=== PATIENT | female | born 1965 | race Caucasian/White ===

== ENCOUNTER → 2016-07-11 | Outpatient (CLI) | payer BC ==
[~2016-07-11] MED LIST: ARMO90TA OR; BENT10CA PO; CALC500T36 PO; EMLA TD; FASTIN PO; FIORICET OR; FISHCAP OR; GLYC1TAB17 PO; GREEN TEA OR; GREEPOW2 XX; HYDR200T3 PO; IBUP-1114 PO; IMIT4KIT SC; IMIT50TA PO; IRON325T PO; KLOR10TA OR; LIDO5DIS EXT; MAGN250T5 PO; MAGN500T5 PO; MULTIVIT OR; NEUR300C PO; OMEP40CA2 PO; PROB1TAB PO; RANI15TA PO; RESTASIS OU; SIME80TA PO; SKEL800T5 OR; SOMA350T OR; THYROID MED; TYLE325T5 PO; VALI5TAB PO; VERA120T OR; VICO5TAB OR; VIT D 2000 PO; VIT D OR; VITA200016 PO; VITAMIN D50000 UNT; VITATAB11 PO; VOLT1GEL EX; ZANA2CAP OR; [UNRECOGNIZED DRUG - OTHER]; [UNRECOGNIZED DRUG - OTHER]; [UNRECOGNIZED DRUG - REMARK]; eye drops OU; plaquinel PO; viscous lidocaine SSP
--- NOTE | 2016-07-13 23:20 | ECWPNPC ---
PATIENT NAME: FRANCK CROW : 1965 GENDER: FEMALE VISIT DATE: 07/11/2016 DISCHARGE DATE: 07/11/16 1002 VISIT LOCKED DATE TIME: PHYSICIAN: ANDREA CHACON RESOURCE: ANDREA CHACON REASON FOR APPOINTMENT 1. FOLLOWUP HISTORY OF PRESENT ILLNESS HISTORY OF PRESENT ILLNESS: PAIN THE PATIENT DESCRIBES THE PAIN... FALL RISK SCREENING: SCREENING :NO FALLS IN THE PAST YEAR TODAY'S VISIT: NOTES: OTEZLA WAS STOPPED DUE TO INSURANCE FOR ONE MONTH. THEY WANTED HER TO BE TRIALED ON [facility]UMIR[facility] BUT SHE AND HER DOCTOR DECLINED THIS DUE TO HER HX OF SKIN CANCER AND VERY HIGH FAMILY RATE OF CANCER. WHILE OFF ON OTEZLA HAS DEVELOPED AGAIN INCREASED DRY EYES, ORAL LESIONS AND THE ESOPHAGEAL IRRITATION.RATES PAIN TODAY 4/10. DESCRIBES PAIN CONSTANT, ACHING, TENDER AND SORE, AND INTERMITTANTLY SHARP IN SOME AREAS.. CURRENT MEDICATIONS TAKING BENTYL 10 MG CAPSULE 1 CAPSULE ORALLY ONCE DAILY NEEDED, NOTES: NONE LATELY TAKING THYROID 60 MG TABLET 1 TABLET ORALLY ONCE A DAY TAKING EYE DROPS SOLUTION 1 DROP EACH EYE OPHTHALMIC DIRECTED TAKING OTEZLA 30 MG TABLET 1 TABLET ORALLY TWICE A DAY TAKING CARAFATE 1 GM TABLET 1 TABLET ON AN EMPTY STOMACH ORALLY 1/2 HR BEFORE MEALS AND AT BED NEEDED TAKING CARISOPRODOL 350 MG TABLET 1 TABLET NEEDED ORALLY TAKE ONE AT BEDTIME MDD=1 TAKING EMLA 2.5 CREAM PERCENT EXTERNALLY THREE TIMES A DAY NEEDED TAKING PROBIOTIC CAPSULE ORALLY BID TAKING SUMATRIPTAN SUCCINATE REFILL 4 MG/0.5ML SOLUTION CARTRIDGE DIRECTED SUBCUTANEOUS DIRECTED TAKING NORCO 7.5-325 MG TABLET 1 TABLET NEEDED ORALLY EVERY 6 HRS TAKING VALIUM 2 MG TABLET 1 TABLET NEEDED ORALLY BEFORE BEDTIME MDD=1 TAKING RIZATRIPTAN BENZOATE 10 MG TABLET 1 TABLET NEEDED ONE TIME ORALLY BID MDD=2 FOR MIGRAINE TAKING TIZANIDINE HCL 4 MG CAPSULE 2 CAPSULE NEEDED ORALLY DAY TAKING MAGNESIUM 500 MG TABLET 1-2 TABS ORALLY ONCE A DAY TAKING VITAMIN D 5000 UNIT CAPSULE 1 TABLET ORALLY DAILY NOT-TAKING ASPIR-81 81 MG TABLET DELAYED RELEASE 1 TABLET ORALLY ONCE A DAY, NOTES: 03/18/16 0800 NOT-TAKING VITAMIN B COMPLEX 1000 MG TABLET ORALLY DAILY NOT-TAKING SOMA 350 MG TABLET ORALLY DAILY NOT-TAKING CALCIUM 500 MG TABLET ORALLY DAILY NOT-TAKING ZANAFLEX 4 MG TABLET ORALLY 4MG TWICE DAILY, NOTES: 04/19/16 0900 NOT-TAKING NORCO 5-325 MG TABLET 1 TABLET ORALLY EVERY 6 -8 HRS PRN PAIN NOT-TAKING FIORICET TABLET 2 TABLET NEEDED ORALLY EVERY 4 HRS, NOTES: MAX DAILY DOSE 6 TABS NOT-TAKING SUMATRIPTAN SUCCINATE SOLUTION MAY REPEAT IN 1 HOUR IF NEEDED SUBCUTANEOUS NEEDED NOT-TAKING QUININE SULFATE 324 MG CAPSULE 2 CAPSULES WITH FOOD ORALLY AT BEDTIME MEDICATION LIST REVIEWED AND RECONCILED WITH THE PATIENT PAST MEDICAL HISTORY HYPOTHYROIDISM SJOGRENS FIBROMYALGIA MIGARINES ENDOMETREOISIS POLYCYSTIC OVARY DISEASE IBS DDD OSTEOPOROSIS ALLERGIES FLECTOR: RASH GABAPENTIN: MIGRANE TRAMADOL: MIGRANE TOPIRAMATE: PANIC ATTACKS DULOXETINE HCL: MIGRANE SULFA (FOR ALLERGY USE ONLY): NAUSEA/ VOMITING PREGABALIN: WEIGHT GAIN TAPE: RASH SOCIAL HISTORY GENERAL: TOBACCO USE ARE YOU A:NONSMOKER LEARNING BARRIERS / SPECIAL NEEDS ORIENTED TO PLAN OF CARE: PATIENT, PAIN MANAGEMENT PATIENT, ORIENTED TO PLAN OF CARE: PATIENT, PAIN MANAGEMENT PATIENT. NEW PATIENT PAIN DIARY TODAY'S VISITNOTES FROM 0-10, WHAT LEVEL IS YOUR PAIN TODAY?0 PAIN CLINIC PFS, CLERGY, PUBLIC HEALTH REFERRALS PFS REFERRAL NEEDED?NO CLERGY REFERRAL NEEDED?NO PUBLIC HEALTH REFERRAL NEEDED?NO WAS THE PROVIDER NOTIFIED OF ANY PERTINENT INFO?NO PFS REFERRAL NEEDED?NO CLERGY REFERRAL NEEDED?NO PUBLIC HEALTH REFERRAL NEEDED?NO WAS THE PROVIDER NOTIFIED OF ANY PERTINENT INFO?NO REVIEW OF SYSTEMS CONSTITUTIONAL: ANY CHANGE IN YOUR MEDICAL CONDITION? NO . CHILLS NO . FEVER NO . INFECTION: DO YOU HAVE NEW INFECTIONS? NO . DO YOU HAVE HISTORY OF MRSA? NO . MUSCULOSKELETAL: ANY NEW PATTERNS OF PAIN OR NUMBNESS? NO . GASTROENTEROLOGY: ANY NEW CHANGE IN BOWEL CONTROL? NO . GENITOURINARY: ANY NEW CHANGE IN BLADDER CONTROL? NO . IS THERE A CHANCE YOU COULD BE ? NO . HEMATOLOGY/LYMPH: DO YOU TAKE ANY BLOOD THINNERS? (FOR EXAMPLE- COUMADIN, PLAVIX, AGGRENOX, PLATEL, PRADAXA, OR XARELTO) NO . WHEN WAS YOUR LAST DOSE? DATE: TIME: . NEUROLOGY: HAVE YOU FALLEN IN THE PAST 6 MONTHS? YES-NO INJURY EXCEPT FOR BRUISING. NO EVAL DONE. . ANY NEW EXTREMITY NUMBNESS OR WEAKNESS? NO . CARDIOLOGY: DO YOU HAVE A PACEMAKER OR DEFIBRILLATOR? NO . RESPIRATORY: HAVE YOU BEEN SICK IN THE PAST WEEK? YES. URI . FEVER NO . FLU LIKE SYMPTOMS? NO . COUGH YES, NON-PRODUCTIVE . INTEGUMENTARY: DO YOU HAVE ANY RASHES OR OPEN SORES? NO . ALLERGIC/IMMUNO: ARE YOU ALLERGIC TO SHELLFISH OR IV DYE? NO . ANY NEW ALLERGIES? NO . PSYCHIATRIC: DO YOU HAVE THOUGHTS OF HURTING YOURSELF OR SOMEONE ELSE? NO . ARE YOU ABUSED, NEGLECTED, OR IN AN UNSAFE ENVIRONMENT? NO . ENDOCRINOLOGY: ARE YOU DIABETIC? NO . OTHER: DO YOU NEED ANY PRESCRIPTIONS? YES SOMA/VALIUM . IF YES, PLEASE LIST: ____ . ANY NEW PROBLEMS WITH YOUR MEDICATIONS? NO . WHEN DID YOU LAST EAT? ____ . WHEN DID YOU LAST DRINK? ____ . WHAT DID YOU LAST DRINK? ____ . NAME OF PERSON DRIVING YOU HOME? ____ . DO YOU HAVE ANY OTHER QUESTIONS OR CONCERNS NO . HEENT: PATIENT COMPLAINING OF VERY DRY EYS WHILE OFF OTEZLA, INCREASE IN ESOPHAGEAL IRRITATION . PSYCHOLOGY: SLEEP DISTURBANCES INSOMNIA SHORT SLEEP BUT THEN IS WIDE AWAKE . SKIN: DO YOU HAVE ANY RASHES OR OPEN SORES? ORAL LESIONS ARE FLAIRED . UROLOGY: GENERAL HAVING IVP FOR RE-EVAL OF RENAL DRAINAGE. HAS HX OF DUAL URETERS ON LEFT AND REQUIRED SURGERY A TEEN. . REVIEWED BY: PROVIDER: . VITAL SIGNS WT 121 LBS, HT 61 IN, BMI 22.86 INDEX, BP 140/78 MM HG, HR 79 /MIN, RR 16 /MIN, TEMP 98.1 F, OXYGEN SAT % 99, NA INITIALS MP, REVIEWED BY: MLF. EXAMINATION GENERAL EXAMINATION: PSYCHALERT , ORIENTED X 3 , APPROPRIATE MOOD AND AFFECT . LUNGS:CLEAR TO AUSCULTATION BILATERALLY. HEART:HEART RATE REGULAR. MUSCULOSKELETAL:MUSCLE STRENGTH TESTING 5/5 BILATERAL, TRIGGER POINTS:, ELICITED WITH PALPATION OVER CERVICAL SPINOUS PROCESSES AND ACROSS THE TRAPEZIUS MUSCLES BILATERALLY. RESTRICTION OF ROM IS NOTED. POSTURE UPRIGHT, GAIT NONANTALGIC. NEUROLOGIC EXAM:CN'S II-XII GROSSLY INTACT. INTERMITTANT TREMOR NOTED IN HANDS.SPEACH NONDYSARTHIC. NO DYSPHONIA. ASSESSMENTS LUMBAR POST-LAMINECTOMY SYNDROME - M96.1 (PRIMARY) MYALGIA - M79.1 FIBROMYALGIA - M79.7 TREATMENT LUMBAR POST-LAMINECTOMY SYNDROME REFILL VALIUM TABLET, 2 MG, 1 TABLET NEEDED, ORALLY, BEFORE BEDTIME MDD=1, 30 DAY(S), 30, REFILLS 0 REFILL SOMA TABLET, 350 MG, ORALLY, DAILY AT BEDTIME MDD=1, 30 DAYS, 30, REFILLS 5 NOTES: CONTINUE TO KEEP TRACK OF SLEEP. CONSIDER MELATONIN. PROCEDURE CODES FA211 ESTABILISHED PATIENT [facility] CHARGE FOLLOW UP 2 MONTHS ELECTRONICALLY SIGNED BY TARIK FRANKS ON 07/12/2016 AT 02:11 PM EST DISCLAIMER : THIS IS A VISIT SUMMARY EXTRACTED FROM THE [employer] CHART. IT IS NOT A COPY OF THE [employer] PROGRESS NOTE. ANTONELLA
== END ==
LOC: M PAIN 09:00
PROVIDERS: ATTEND Nurse Practitioner Family
DX: M96.1 Postlaminectomy syndrome, not elsewhere classified (principal); M79.1 Myalgia; G43.909 Migraine, unspecified, not intractable, without status migrainosus; M35.00 Sjogren syndrome, unspecified; M81.0 Age-related osteoporosis without current pathological fracture; Z79.899 Other long term (current) drug therapy; Z88.2 Allergy status to sulfonamides; Z91.048 Other nonmedicinal substance allergy status

== ENCOUNTER → 2016-07-25 | Outpatient (REF) | payer BC | END | disposition home or self-care (01) | LOC: M SMT 17:09 | PROVIDERS: ATTEND Specialist | DX: M54.6 Pain in thoracic spine (principal); R35.0 Frequency of micturition; N39.41 Urge incontinence ==

== ENCOUNTER → 2016-08-02 | Outpatient (CLI) | payer BC ==
[~2016-08-02] MED LIST changes: +ISOVUE-370 76% 100ML VIAL (Q9967) As Ordered ONE
--- NOTE | 2016-08-02 16:08 | REP ---
Clinical: Left-sided thoracic and back pain. Technique: Axial precontrast, contrast enhanced, and delayed images of the abdomen and pelvis using 100 ml Isovue 370 intravenous contrast material with coronal and sagittal re-formations. Comparison: 06/06/2013. Findings: Lung bases are clear. Visualized heart and pericardium normal. Liver, spleen, pancreas, gallbladder, bilateral adrenal glands and right kidney/ureter are normal. Left kidney demonstrates complete duplicated collecting system without hydroureteronephrosis. The enteric system is without obstruction or acute inflammatory process. Scattered sigmoid diverticula noted without acute diverticulitis. Pelvis demonstrates normal bladder and evidence for prior hysterectomy. No ascites. No adenopathy. No free air. Vasculature is normal. Surrounding musculoskeletal structures are intact. Impression: 1. No acute intra-abdominal or pelvic pathology appreciated. 2. 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 3. Few scattered sigmoid diverticula without acute diverticulitis. Signed by Joaquin Moore MD 08/02/2016 04:00 P
== END ==
LOC: M RAD 15:24
PROVIDERS: ATTEND Specialist
DX: M54.6 Pain in thoracic spine (principal); Q63.0 Accessory kidney; K57.90 Diverticulosis of intestine, part unspecified, without perforation or abscess without bleeding
CPT/HCPCS: 74178; Q9967

== ENCOUNTER → 2016-09-25 | Outpatient (CLI) | payer BC ==
[~2016-09-25] MED LIST changes: -ISOVUE-370 76% 100ML VIAL (Q9967) As Ordered ONE
--- NOTE | 2016-10-10 00:42 | ECWPNPC ---
PATIENT NAME: FRANCK CROW : 1965 GENDER: FEMALE VISIT DATE: 09/25/2016 DISCHARGE DATE: 09/25/16 1503 VISIT LOCKED DATE TIME: PHYSICIAN: ANDREA CHACON RESOURCE: ANDREA CHACON HISTORY OF PRESENT ILLNESS TODAY'S VISIT: NOTES: RATES PAIN TODAY 5/10. DESCIBES PAIN CONSTANT, ACHING, BURNING, TENDER AND SORE AND INTERMITTANTLY SHARP. HAS BEEN HAVING SEVERE CRAMPS IN BOTH LEGS FROM BASE OF BUTTUCKS TO FEET. HAS TRIED MAGNESIUM, QUININE. HAS GAINED WEIGHT WITH STEROIDS AFTER SINUS INFECTION. HAS BEEN HAVING MORE JOINT PAIN. IS BACK ON OTEZLA BUT TIMING HAS BEEN OFF. NOT SLEEPING WELL. NOTES INTERMITTANT EYE ISSUES WITH DRYNESS, BUT ORAL MEMBRANES HAVE BEEN UNDER CONTROL. BOWELS STILL WITH INTERMITTANT CRAMPING AND DIARRHEA WAS CHECKED FOR KIDNEY STONE AND THIS WAS NEGATIVE.STILL HAVING BURNING LEFT SIDED FLANK PAIN. NO HEME. . CURRENT MEDICATIONS TAKING BENTYL 10 MG CAPSULE 1 CAPSULE ORALLY ONCE DAILY NEEDED, NOTES: NONE LATELY TAKING THYROID 60 MG TABLET 1 TABLET ORALLY ONCE A DAY TAKING EYE DROPS SOLUTION 1 DROP EACH EYE OPHTHALMIC DIRECTED TAKING OTEZLA 30 MG TABLET 1 TABLET ORALLY TWICE A DAY TAKING CARAFATE 1 GM TABLET 1 TABLET ON AN EMPTY STOMACH ORALLY 1/2 HR BEFORE MEALS AND AT BED NEEDED TAKING CARISOPRODOL 350 MG TABLET 1 TABLET NEEDED ORALLY TAKE ONE AT BEDTIME MDD=1 TAKING EMLA 2.5 CREAM PERCENT EXTERNALLY THREE TIMES A DAY NEEDED TAKING PROBIOTIC CAPSULE ORALLY BID TAKING SUMATRIPTAN SUCCINATE REFILL 4 MG/0.5ML SOLUTION CARTRIDGE DIRECTED SUBCUTANEOUS DIRECTED TAKING NORCO 7.5-325 MG TABLET 1 TABLET NEEDED ORALLY EVERY 6 HRS TAKING RIZATRIPTAN BENZOATE 10 MG TABLET 1 TABLET NEEDED ONE TIME ORALLY BID MDD=2 FOR MIGRAINE TAKING TIZANIDINE HCL 4 MG CAPSULE 2 CAPSULE NEEDED ORALLY DAY TAKING MAGNESIUM 500 MG TABLET 1-2 TABS ORALLY ONCE A DAY TAKING VITAMIN D 5000 UNIT CAPSULE 1 TABLET ORALLY DAILY TAKING VALIUM 2 MG TABLET 1 TABLET NEEDED ORALLY BEFORE BEDTIME MDD=1 NOT-TAKING SOMA 350 MG TABLET ORALLY DAILY AT BEDTIME MDD=1 NOT-TAKING ASPIR-81 81 MG TABLET DELAYED RELEASE 1 TABLET ORALLY ONCE A DAY, NOTES: 03/18/16 0800 NOT-TAKING VITAMIN B COMPLEX 1000 MG TABLET ORALLY DAILY NOT-TAKING CALCIUM 500 MG TABLET ORALLY DAILY NOT-TAKING ZANAFLEX 4 MG TABLET ORALLY 4MG TWICE DAILY, NOTES: 04/19/16 0900 NOT-TAKING NORCO 5-325 MG TABLET 1 TABLET ORALLY EVERY 6 -8 HRS PRN PAIN NOT-TAKING FIORICET TABLET 2 TABLET NEEDED ORALLY EVERY 4 HRS, NOTES: MAX DAILY DOSE 6 TABS NOT-TAKING SUMATRIPTAN SUCCINATE SOLUTION MAY REPEAT IN 1 HOUR IF NEEDED SUBCUTANEOUS NEEDED NOT-TAKING QUININE SULFATE 324 MG CAPSULE 2 CAPSULES WITH FOOD ORALLY AT BEDTIME MEDICATION LIST REVIEWED AND RECONCILED WITH THE PATIENT PAST MEDICAL HISTORY HYPOTHYROIDISM SJOGRENS FIBROMYALGIA MIGARINES ENDOMETREOISIS POLYCYSTIC OVARY DISEASE IBS DDD OSTEOPOROSIS TIGGER POINT INJECTIONS ALLERGIES FLECTOR: RASH GABAPENTIN: MIGRANE TRAMADOL: MIGRANE TOPIRAMATE: PANIC ATTACKS DULOXETINE HCL: MIGRANE SULFA (FOR ALLERGY USE ONLY): NAUSEA/ VOMITING PREGABALIN: WEIGHT GAIN TAPE: RASH REVIEW OF SYSTEMS FOLLOW-UP ROS: CARDIOLOGY: NEGATIVE FOR, CHEST PAIN . GASTROENTEROLOGY: INTERMITTANT GERD SYMPTOMS, REFLUX, CONSSTIPATION . MUSCULOSKELETAL POSITIVE FOR, JOINT PAIN, MUSCLE PAIN . NEUROLOGY: POSITIVE FOR, HEADACHES . PSYCHOLOGY: POSITIVE FOR, SLEEP DISTURBANCE, SOME DEPRESSION . VITAL SIGNS WT 136.4 LBS, HT 61 IN, BMI 25.77 INDEX, BP 163/70 MM HG, HR 76 /MIN, RR 16 /MIN, TEMP 99.1 F, OXYGEN SAT % 98%, NA INITIALS SC 14:11. EXAMINATION GENERAL EXAMINATION: GENERAL APPEARANCE:NO ACUTE DISTRESS, WELL NOURISHED AND HYDRATED. PSYCHAPPROPRIATE MOOD AND AFFECT . LUNGS:CLEAR TO AUSCULTATION BILATERALLY, NO WHEEZES, RHONCHI, RALES. HEART:NO MURMURS, IR-REGULAR RATE AND RHYTHM. BACK:NO CVA TENDERNESS, SOME MUSCULAR TENDERNESS DEEP UPPER LEFT BACK. EXTREMITIES:NO CLUBBING, NO EDEMA. ASSESSMENTS LUMBAR POST-LAMINECTOMY SYNDROME - M96.1 (PRIMARY) MYALGIA - M79.1 FIBROMYALGIA - M79.7 TREATMENT LUMBAR POST-LAMINECTOMY SYNDROME REFILL NORCO TABLET, 7.5-325 MG, 1 TABLET NEEDED, ORALLY, EVERY 6 HRS, 30 DAY(S), 90, REFILLS 0 REFILL VALIUM TABLET, 2 MG, 1 TABLET NEEDED, ORALLY, BEFORE BEDTIME MDD=1, 30 DAY(S), 30, REFILLS 0 START METHYLPHENIDATE HCL TABLET, 10 MG, 1 TABLET, ORALLY, EVERY MORNINGMDD=1, 30 DAY(S), 30, REFILLS 0 NOTES: CONTINUE WALKING, CURRENT MEDS. PROCEDURE CODES FA211 ESTABILISHED PATIENT [facility] CHARGE DISPOSITION & COMMUNICATION FOLLOW UP 1 MONTH ELECTRONICALLY SIGNED BY TARIK FRANKS ON 10/09/2016 AT 09:27 AM EDT DISCLAIMER : THIS IS A VISIT SUMMARY EXTRACTED FROM THE [employer] CHART. IT IS NOT A COPY OF THE [employer] PROGRESS NOTE. MTDD
== END ==
LOC: M PAIN 14:20
PROVIDERS: ATTEND Nurse Practitioner Family
DX: M96.1 Postlaminectomy syndrome, not elsewhere classified (principal); M79.7 Fibromyalgia; E03.9 Hypothyroidism, unspecified; G43.909 Migraine, unspecified, not intractable, without status migrainosus; M35.00 Sjogren syndrome, unspecified; E28.2 Polycystic ovarian syndrome; K58.9 Irritable bowel syndrome, unspecified; M81.0 Age-related osteoporosis without current pathological fracture; Z88.5 Allergy status to narcotic agent; Z88.2 Allergy status to sulfonamides; Z88.8 Allergy status to other drugs, medicaments and biological substances; Z91.048 Other nonmedicinal substance allergy status; Z79.891 Long term (current) use of opiate analgesic; Z79.899 Other long term (current) drug therapy

== ENCOUNTER → 2016-10-29 | Outpatient (CLI) | payer BC ==
--- NOTE | 2016-11-12 00:31 | ECWPNPC ---
PATIENT NAME: FRANCK CROW : 1965 GENDER: FEMALE VISIT DATE: 10/29/2016 DISCHARGE DATE: 10/29/16 1005 VISIT LOCKED DATE TIME: PHYSICIAN: ANDREA CHACON RESOURCE: ANDREA CHACON REASON FOR APPOINTMENT 1. BACK HISTORY OF PRESENT ILLNESS HISTORY OF PRESENT ILLNESS: PAIN THE PATIENT DESCRIBES THE PAIN... FALL RISK SCREENING: SCREENING :NO FALLS IN THE PAST YEAR TODAY'S VISIT: NOTES: RATES PAIN TODAY 5/10 IS HAVING A LOT OF NUMBNESS IN RIGHT HAND AND ARM. IS HAVING A SENSATION OF BEING "STUNG BY A BEE". RITALIN HAS BEEN SOMEWHAT HELPFUL FOR DAYTIME WAKEFULNESS. HAS BEEN EXPERIENCING A SENSE OF PRESSURE ON BASE OF SPINE. DOESN'T FEEL SHE HAS THE STRENGTH TO USE HANDS. . CURRENT MEDICATIONS TAKING BENTYL 10 MG CAPSULE 1 CAPSULE ORALLY ONCE DAILY NEEDED, NOTES: NONE LATELY TAKING THYROID 60 MG TABLET 1 TABLET ORALLY ONCE A DAY TAKING EYE DROPS SOLUTION 1 DROP EACH EYE OPHTHALMIC DIRECTED TAKING OTEZLA 30 MG TABLET 1 TABLET ORALLY TWICE A DAY TAKING CARAFATE 1 GM TABLET 1 TABLET ON AN EMPTY STOMACH ORALLY 1/2 HR BEFORE MEALS AND AT BED NEEDED TAKING CARISOPRODOL 350 MG TABLET 1 TABLET NEEDED ORALLY TAKE ONE AT BEDTIME MDD=1 TAKING EMLA 2.5 CREAM PERCENT EXTERNALLY THREE TIMES A DAY NEEDED TAKING PROBIOTIC CAPSULE ORALLY BID TAKING SUMATRIPTAN SUCCINATE REFILL 4 MG/0.5ML SOLUTION CARTRIDGE DIRECTED SUBCUTANEOUS DIRECTED TAKING RIZATRIPTAN BENZOATE 10 MG TABLET 1 TABLET NEEDED ONE TIME ORALLY BID MDD=2 FOR MIGRAINE TAKING TIZANIDINE HCL 4 MG CAPSULE 2 CAPSULE NEEDED ORALLY DAY TAKING MAGNESIUM 500 MG TABLET 1-2 TABS ORALLY ONCE A DAY TAKING VITAMIN D 5000 UNIT CAPSULE 1 TABLET ORALLY DAILY TAKING NORCO 7.5-325 MG TABLET 1 TABLET NEEDED ORALLY EVERY 6 HRS TAKING VALIUM 2 MG TABLET 1 TABLET NEEDED ORALLY BEFORE BEDTIME MDD=1 TAKING METHYLPHENIDATE HCL 10 MG TABLET 1 TABLET ORALLY EVERY MORNINGMDD=1 NOT-TAKING SOMA 350 MG TABLET ORALLY DAILY AT BEDTIME MDD=1 NOT-TAKING ASPIR-81 81 MG TABLET DELAYED RELEASE 1 TABLET ORALLY ONCE A DAY, NOTES: 03/18/16 0800 NOT-TAKING VITAMIN B COMPLEX 1000 MG TABLET ORALLY DAILY NOT-TAKING CALCIUM 500 MG TABLET ORALLY DAILY NOT-TAKING ZANAFLEX 4 MG TABLET ORALLY 4MG TWICE DAILY, NOTES: 04/19/16 0900 NOT-TAKING NORCO 5-325 MG TABLET 1 TABLET ORALLY EVERY 6 -8 HRS PRN PAIN NOT-TAKING FIORICET TABLET 2 TABLET NEEDED ORALLY EVERY 4 HRS, NOTES: MAX DAILY DOSE 6 TABS NOT-TAKING SUMATRIPTAN SUCCINATE SOLUTION MAY REPEAT IN 1 HOUR IF NEEDED SUBCUTANEOUS NEEDED NOT-TAKING QUININE SULFATE 324 MG CAPSULE 2 CAPSULES WITH FOOD ORALLY AT BEDTIME MEDICATION LIST REVIEWED AND RECONCILED WITH THE PATIENT PAST MEDICAL HISTORY HYPOTHYROIDISM SJOGRENS FIBROMYALGIA MIGARINES ENDOMETREOISIS POLYCYSTIC OVARY DISEASE IBS DDD OSTEOPOROSIS TIGGER POINT INJECTIONS ALLERGIES FLECTOR: RASH GABAPENTIN: MIGRANE TRAMADOL: MIGRANE TOPIRAMATE: PANIC ATTACKS DULOXETINE HCL: MIGRANE SULFA (FOR ALLERGY USE ONLY): NAUSEA/ VOMITING PREGABALIN: WEIGHT GAIN TAPE: RASH REVIEW OF SYSTEMS CONSTITUTIONAL: ANY CHANGE IN YOUR MEDICAL CONDITION? NO . CHILLS NO . FEVER NO . INFECTION: DO YOU HAVE NEW INFECTIONS? NO . DO YOU HAVE HISTORY OF MRSA? NO . MUSCULOSKELETAL: ANY NEW PATTERNS OF PAIN OR NUMBNESS? YES . GASTROENTEROLOGY: ANY NEW CHANGE IN BOWEL CONTROL? NO . GENITOURINARY: ANY NEW CHANGE IN BLADDER CONTROL? NO . IS THERE A CHANCE YOU COULD BE ? NO . HEMATOLOGY/LYMPH: DO YOU TAKE ANY BLOOD THINNERS? (FOR EXAMPLE- COUMADIN, PLAVIX, AGGRENOX, PLATEL, PRADAXA, OR XARELTO) NO . WHEN WAS YOUR LAST DOSE? DATE: TIME: . NEUROLOGY: HAVE YOU FALLEN IN THE PAST 6 MONTHS? NO . ANY NEW EXTREMITY NUMBNESS OR WEAKNESS? NO . CARDIOLOGY: DO YOU HAVE A PACEMAKER OR DEFIBRILLATOR? NO . RESPIRATORY: HAVE YOU BEEN SICK IN THE PAST WEEK? NO . FEVER NO . FLU LIKE SYMPTOMS? NO . COUGH NO . INTEGUMENTARY: DO YOU HAVE ANY RASHES OR OPEN SORES? NO . ALLERGIC/IMMUNO: ARE YOU ALLERGIC TO SHELLFISH OR IV DYE? NO . ANY NEW ALLERGIES? NO . PSYCHIATRIC: DO YOU HAVE THOUGHTS OF HURTING YOURSELF OR SOMEONE ELSE? NO . ARE YOU ABUSED, NEGLECTED, OR IN AN UNSAFE ENVIRONMENT? NO . ENDOCRINOLOGY: ARE YOU DIABETIC? NO . OTHER: DO YOU NEED ANY PRESCRIPTIONS? YES . IF YES, PLEASE LIST: ____TIZANIDINE, VICODIN . ANY NEW PROBLEMS WITH YOUR MEDICATIONS? NO . WHEN DID YOU LAST EAT? ____ . WHEN DID YOU LAST DRINK? ____ . WHAT DID YOU LAST DRINK? ____ . NAME OF PERSON DRIVING YOU HOME? ____ . DO YOU HAVE ANY OTHER QUESTIONS OR CONCERNS NO . REVIEWED BY: PROVIDER: ANDREA MATUTE . VITAL SIGNS WT 136.4 LBS, HT 61 IN, BMI 25.77 INDEX, BP 126/87 MM HG, HR 86 /MIN, RR 16 /MIN, TEMP 98.2 F, OXYGEN SAT % 97%, NA INITIALS TL 0846, REVIEWED BY: CL. EXAMINATION GENERAL EXAMINATION: GENERAL APPEARANCE:NO ACUTE DISTRESS, APPEARS DEHYDRATED WITH DRY MUCOUS MEMBRANES. PSYCHAPPROPRIATE MOOD AND AFFECT . LUNGS:CLEAR TO AUSCULTATION BILATERALLY, NO WHEEZES, RHONCHI, RALES. HEART:NO MURMURS, IR-REGULAR RATE AND RHYTHM. MUSCULOSKELETAL:MUSCLE STRENGTH TESTING 5/5 BILATERAL UPPER AND LOWER EXTREMITIES. TENDER AND TRIGGERPOINTS WITH TIGHT FIBROUS BANDS IDENTIFIED OVER LUMBAR PARAVERTEBRAL MUSCLES.. EXTREMITIES:NO CLUBBING, NO EDEMA. ASSESSMENTS LUMBAR POST-LAMINECTOMY SYNDROME - M96.1 (PRIMARY) MYALGIA - M79.1 FIBROMYALGIA - M79.7 TREATMENT LUMBAR POST-LAMINECTOMY SYNDROME REFILL METHYLPHENIDATE HCL TABLET, 10 MG, 1 TABLET, ORALLY, EVERY MORNING AND AT 1 PM MDD=2, 30 DAY(S), 60, REFILLS 0 REFILL TIZANIDINE HCL TABLET, 4 MG, 1 TAB, ORALLY, THREE TIMES DAILY, 30 DAY(S), 90, REFILLS 2 REFILL NORCO TABLET, 5-325 MG, 1 TABLET, ORALLY, EVERY 6 -8 HRS PRN PAIN, 30 DAYS, 90, REFILLS 0 NOTES: CONTINUE CURRENT MEDS. CLINICAL NOTES: ISTOP REGISTRY REVIEWED AND DEMNOSTRATES COMPLLIANCE. BRINGS IN MEDICATIONS WHICH IS APPROPRIATE FOR WHAT WAS DISPENSED. RECENT URINE TOXICOLOGY REVIEWED. NO UNAUTHORIZED MEDICATIONS. NO ILLICIT SUBSTANCES AND PRESCRIBED MEDICATIONS WERE PRESENT. PROCEDURE CODES FA211 ESTABILISHED PATIENT [facility] CHARGE DISPOSITION & COMMUNICATION FOLLOW UP 6 WEEKS OK TO CALL FOR TRIGGER POINTS ELECTRONICALLY SIGNED BY TARIK FRANKS ON 11/11/2016 AT 06:34 PM EDT DISCLAIMER : THIS IS A VISIT SUMMARY EXTRACTED FROM THE [employer] CHART. IT IS NOT A COPY OF THE [employer] PROGRESS NOTE. ANTONELLA
== END ==
LOC: M PAIN 09:00
PROVIDERS: ATTEND Nurse Practitioner Family
DX: G89.29 Other chronic pain (principal); M96.1 Postlaminectomy syndrome, not elsewhere classified; M79.7 Fibromyalgia; E03.9 Hypothyroidism, unspecified; M35.00 Sjogren syndrome, unspecified; G43.909 Migraine, unspecified, not intractable, without status migrainosus; E28.2 Polycystic ovarian syndrome; N80.9 Endometriosis, unspecified; K58.9 Irritable bowel syndrome, unspecified; M81.0 Age-related osteoporosis without current pathological fracture; Z88.2 Allergy status to sulfonamides; Z88.8 Allergy status to other drugs, medicaments and biological substances; Z88.5 Allergy status to narcotic agent; Z91.048 Other nonmedicinal substance allergy status; Z79.891 Long term (current) use of opiate analgesic; Z79.899 Other long term (current) drug therapy

== ENCOUNTER → 2016-12-23 | Outpatient (CLI) | payer BC ==
--- NOTE | 2017-01-12 23:52 | ECWPNPC ---
PATIENT NAME: FRANCK CROW : 1965 GENDER: FEMALE VISIT DATE: 12/23/2016 DISCHARGE DATE: 12/23/16 1125 VISIT LOCKED DATE TIME: PHYSICIAN: ANDREA CHACON RESOURCE: ANDREA CHACON HISTORY OF PRESENT ILLNESS HISTORY OF PRESENT ILLNESS: PAIN THE PATIENT DESCRIBES THE PAIN... FALL RISK SCREENING: SCREENING :NO FALLS IN THE PAST YEAR TODAY'S VISIT: NOTES: TIC BITE ON 12/21/16 TO RIGHT SIDE BACK OF HEAD. TIC WAS ENGORGED. VERY TIGHT SHOULDERS. HAS BEEN OFF OTEZLA CAN NOT GET THROUGH INSURANCE. IS HAVING VERY BAD ORAL AND SCLERAL MEMBRANE DRYNESS. . CURRENT MEDICATIONS TAKING BENTYL 10 MG CAPSULE 1 CAPSULE ORALLY ONCE DAILY NEEDED TAKING THYROID 60 MG TABLET 1 TABLET ORALLY ONCE A DAY TAKING EYE DROPS SOLUTION 1 DROP EACH EYE OPHTHALMIC DIRECTED TAKING CARAFATE 1 GM TABLET 1 TABLET ON AN EMPTY STOMACH ORALLY 1/2 HR BEFORE MEALS AND AT BED NEEDED TAKING CARISOPRODOL 350 MG TABLET 1 TABLET NEEDED ORALLY TAKE ONE AT BEDTIME MDD=1 TAKING SUMATRIPTAN SUCCINATE REFILL 4 MG/0.5ML SOLUTION CARTRIDGE DIRECTED SUBCUTANEOUS DIRECTED TAKING RIZATRIPTAN BENZOATE 10 MG TABLET 1 TABLET NEEDED ONE TIME ORALLY BID MDD=2 FOR MIGRAINE TAKING VALIUM 2 MG TABLET 1 TABLET NEEDED ORALLY BEFORE BEDTIME MDD=1 TAKING TIZANIDINE HCL 4 MG TABLET 1 TAB ORALLY THREE TIMES DAILY TAKING METHYLPHENIDATE HCL 10 MG TABLET 1 TABLET ORALLY EVERY MORNING AND AT 1 PM MDD=2 TAKING NORCO 7.5-325 MG TABLET 1 TABLET NEEDED ORALLY EVERY 6 HRS NOT-TAKING EMLA 2.5 CREAM PERCENT EXTERNALLY THREE TIMES A DAY NEEDED NOT-TAKING PROBIOTIC CAPSULE ORALLY BID NOT-TAKING MAGNESIUM 500 MG TABLET 1-2 TABS ORALLY ONCE A DAY NOT-TAKING VITAMIN D 5000 UNIT CAPSULE 1 TABLET ORALLY DAILY NOT-TAKING SOMA 350 MG TABLET ORALLY DAILY AT BEDTIME MDD=1 NOT-TAKING ASPIR-81 81 MG TABLET DELAYED RELEASE 1 TABLET ORALLY ONCE A DAY, NOTES: 03/18/16 0800 NOT-TAKING VITAMIN B COMPLEX 1000 MG TABLET ORALLY DAILY NOT-TAKING CALCIUM 500 MG TABLET ORALLY DAILY NOT-TAKING ZANAFLEX 4 MG TABLET ORALLY 4MG TWICE DAILY, NOTES: 04/19/16 0900 NOT-TAKING FIORICET TABLET 2 TABLET NEEDED ORALLY EVERY 4 HRS, NOTES: MAX DAILY DOSE 6 TABS NOT-TAKING SUMATRIPTAN SUCCINATE SOLUTION MAY REPEAT IN 1 HOUR IF NEEDED SUBCUTANEOUS NEEDED NOT-TAKING QUININE SULFATE 324 MG CAPSULE 2 CAPSULES WITH FOOD ORALLY AT BEDTIME DISCONTINUED OTEZLA 30 MG TABLET 1 TABLET ORALLY TWICE A DAY DISCONTINUED NORCO 5-325 MG TABLET 1 TABLET ORALLY EVERY 6 -8 HRS PRN PAIN MEDICATION LIST REVIEWED AND RECONCILED WITH THE PATIENT PAST MEDICAL HISTORY HYPOTHYROIDISM SJOGRENS FIBROMYALGIA MIGARINES ENDOMETREOISIS POLYCYSTIC OVARY DISEASE IBS DDD OSTEOPOROSIS TIGGER POINT INJECTIONS ALLERGIES FLECTOR: RASH GABAPENTIN: MIGRANE TRAMADOL: MIGRANE TOPIRAMATE: PANIC ATTACKS DULOXETINE HCL: MIGRANE SULFA (FOR ALLERGY USE ONLY): NAUSEA/ VOMITING PREGABALIN: WEIGHT GAIN TAPE: RASH REVIEW OF SYSTEMS REVIEWED BY: PROVIDER: ANDREA MATUTE . CONSTITUTIONAL: ANY CHANGE IN YOUR MEDICAL CONDITION? NO . CHILLS NO . FEVER NO . INFECTION: DO YOU HAVE NEW INFECTIONS? NO . DO YOU HAVE HISTORY OF MRSA? NO . MUSCULOSKELETAL: ANY NEW PATTERNS OF PAIN OR NUMBNESS? NO . GASTROENTEROLOGY: ANY NEW CHANGE IN BOWEL CONTROL? NO . GENITOURINARY: ANY NEW CHANGE IN BLADDER CONTROL? NO . IS THERE A CHANCE YOU COULD BE ? NO . HEMATOLOGY/LYMPH: DO YOU TAKE ANY BLOOD THINNERS? (FOR EXAMPLE- COUMADIN, PLAVIX, AGGRENOX, PLATEL, PRADAXA, OR XARELTO) NO . WHEN WAS YOUR LAST DOSE? DATE: TIME: . NEUROLOGY: HAVE YOU FALLEN IN THE PAST 6 MONTHS? YES . ANY NEW EXTREMITY NUMBNESS OR WEAKNESS? NO . CARDIOLOGY: DO YOU HAVE A PACEMAKER OR DEFIBRILLATOR? NO . RESPIRATORY: HAVE YOU BEEN SICK IN THE PAST WEEK? NO . FEVER NO . FLU LIKE SYMPTOMS? NO . COUGH NO . INTEGUMENTARY: DO YOU HAVE ANY RASHES OR OPEN SORES? NO . ALLERGIC/IMMUNO: ARE YOU ALLERGIC TO SHELLFISH OR IV DYE? NO . ANY NEW ALLERGIES? NO . PSYCHIATRIC: DO YOU HAVE THOUGHTS OF HURTING YOURSELF OR SOMEONE ELSE? NO . ARE YOU ABUSED, NEGLECTED, OR IN AN UNSAFE ENVIRONMENT? NO . ENDOCRINOLOGY: ARE YOU DIABETIC? NO . OTHER: DO YOU NEED ANY PRESCRIPTIONS? YES . IF YES, PLEASE LIST: VALIUM METHYLPHENIDATE . ANY NEW PROBLEMS WITH YOUR MEDICATIONS? NO . WHEN DID YOU LAST EAT? ____ . WHEN DID YOU LAST DRINK? ____ . WHAT DID YOU LAST DRINK? ____ . NAME OF PERSON DRIVING YOU HOME? ____ . DO YOU HAVE ANY OTHER QUESTIONS OR CONCERNS YES, ARE THERE ANY NEW PAIN CREAMS? I HAVE A BUMP ON THE BACK OF MY HEAD- (SEVERE TRIGGER POINT)? ALSO THINKS SHE GOT BIT BY A TICK? CAN YOU TREAT THIS? . VITAL SIGNS WT 127 LBS, HT 61 IN, BMI 23.99 INDEX, BP 136/78 MM HG, HR 84 /MIN, RR 16 /MIN, TEMP 98.9 F, OXYGEN SAT % 97%, NA INITIALS SC 10:07, REVIEWED BY: CM. EXAMINATION GENERAL EXAMINATION: GENERAL APPEARANCE:NO ACUTE DISTRESS, APPEARS DEHYDRATED WITH DRY MUCOUS MEMBRANES. PSYCHAPPROPRIATE MOOD AND AFFECT . LUNGS:CLEAR TO AUSCULTATION BILATERALLY, NO WHEEZES, RHONCHI, RALES. HEART:NO MURMURS, IR-REGULAR RATE AND RHYTHM. MUSCULOSKELETAL:MUSCLE STRENGTH TESTING 5/5 BILATERAL UPPER AND LOWER EXTREMITIES. TENDER AND TRIGGERPOINTS WITH TIGHT FIBROUS BANDS IDENTIFIED OVER LUMBAR AND CERVICAL PARAVERTEBRAL MUSCLES.. EXTREMITIES:NO CLUBBING, NO EDEMA. ASSESSMENTS MYALGIA - M79.1 (PRIMARY) LUMBAR POST-LAMINECTOMY SYNDROME - M96.1 FIBROMYALGIA - M79.7 TREATMENT MYALGIA CLINICAL NOTES: ISTOP REGISTRY REVIEWED AND DEMNOSTRATES COMPLLIANCE. BRINGS IN MEDICATIONS WHICH IS APPROPRIATE FOR WHAT WAS DISPENSED. RECENT URINE TOXICOLOGY REVIEWED. NO UNAUTHORIZED MEDICATIONS. NO ILLICIT SUBSTANCES AND PRESCRIBED MEDICATIONS WERE PRESENT. LUMBAR POST-LAMINECTOMY SYNDROME START CYCLOBENZAPRINE HCL TABLET, 10 MG, 1 TABLET NEEDED, ORALLY, BID, 30 DAY(S), 60 TABLET, REFILLS 1 REFILL METHYLPHENIDATE HCL TABLET, 10 MG, 1 TABLET, ORALLY, TAKE 2 TABS EVERY MORNING AND AT 1 PM MDD=3, 30 DAY(S), 90, REFILLS 0 REFILL VALIUM TABLET, 2 MG, 1 TABLET NEEDED, ORALLY, BEFORE BEDTIME MDD=1, 30 DAY(S), 30, REFILLS 0 TRIGGER POINT 3 + ANDREA ROMERO 12/23/2016 11:12:11 AM > NECK/SHOULDERS NOTES: CONSIDER YOGA AND GUIDED IMAGERY SEE PRIMARY CARE OR URGENT CARE FOR TIC BITE TO SCALP CONSIDER TRIGGER POINT INJECTIONS LOOK FOR [employer] COMPANY'S DRUG FORMULARY,TRIGGER POINT INJECTION MATERIAL WAS PRINTED. PROCEDURE CODES FA211 ESTABILISHED PATIENT [facility] CHARGE DISPOSITION & COMMUNICATION ELECTRONICALLY SIGNED BY TARIK FRANKS ON 01/12/2017 AT 12:51 PM EDT DISCLAIMER : THIS IS A VISIT SUMMARY EXTRACTED FROM THE [employer] CHART. IT IS NOT A COPY OF THE [employer] PROGRESS NOTE. MTDD
== END ==
LOC: M PAIN 09:20
PROVIDERS: ATTEND Nurse Practitioner Family
DX: G89.29 Other chronic pain (principal); M96.1 Postlaminectomy syndrome, not elsewhere classified; M79.7 Fibromyalgia; E03.9 Hypothyroidism, unspecified; M35.00 Sjogren syndrome, unspecified; G43.909 Migraine, unspecified, not intractable, without status migrainosus; E28.2 Polycystic ovarian syndrome; K58.9 Irritable bowel syndrome, unspecified; M81.0 Age-related osteoporosis without current pathological fracture; Z88.2 Allergy status to sulfonamides; Z88.5 Allergy status to narcotic agent; Z88.8 Allergy status to other drugs, medicaments and biological substances; Z91.048 Other nonmedicinal substance allergy status; Z79.891 Long term (current) use of opiate analgesic; Z79.82 Long term (current) use of aspirin; Z79.899 Other long term (current) drug therapy

== ENCOUNTER → 2017-01-08 | Outpatient (CLI) | payer BC ==
[~2017-01-08] MED LIST changes: +BUPIVACAINE HCL 0.25% 10 ML VIAL As Ordered ONE; +BUPIVACAINE HCL 0.25% 30 ML VIAL As Ordered ONE; +TRIAMCINOLONE ACETONIDE SUSP 40 MG/ML VIAL (J3301) As Ordered ONE
--- NOTE | 2017-01-21 00:44 | ECWPNPC ---
PATIENT NAME: FRANCK CROW : 1965 GENDER: FEMALE VISIT DATE: 01/08/2017 DISCHARGE DATE: 01/08/17954 VISIT LOCKED DATE TIME: PHYSICIAN: CR BENOIT RESOURCE: CR BENOIT REASON FOR APPOINTMENT 1. TPI BILATERAL NECK AND BILATERAL SHOULDER HISTORY OF PRESENT ILLNESS HISTORY OF PRESENT ILLNESS: PAIN THE PATIENT DESCRIBES THE PAIN... FALL RISK SCREENING: SCREENING :NO FALLS IN THE PAST YEAR CURRENT MEDICATIONS TAKING BENTYL 10 MG CAPSULE 1 CAPSULE ORALLY ONCE DAILY NEEDED, NOTES: NONE RECENT TAKING THYROID 60 MG TABLET 1 TABLET ORALLY ONCE A DAY, NOTES: 01/08 700 TAKING EYE DROPS SOLUTION 1 DROP EACH EYE OPHTHALMIC DIRECTED, NOTES: 01/07 1800 TAKING CARAFATE 1 GM TABLET 1 TABLET ON AN EMPTY STOMACH ORALLY 1/2 HR BEFORE MEALS AND AT BED NEEDED, NOTES: NONE RECENT TAKING CARISOPRODOL 350 MG TABLET 1 TABLET NEEDED ORALLY TAKE ONE AT BEDTIME MDD=1, NOTES: NONE RECENT TAKING SUMATRIPTAN SUCCINATE REFILL 4 MG/0.5ML SOLUTION CARTRIDGE DIRECTED SUBCUTANEOUS DIRECTED, NOTES: LAST WEEK TAKING RIZATRIPTAN BENZOATE 10 MG TABLET 1 TABLET NEEDED ONE TIME ORALLY BID MDD=2 FOR MIGRAINE, NOTES: NONE RECENT TAKING TIZANIDINE HCL 4 MG TABLET 1 TAB ORALLY THREE TIMES DAILY, NOTES: 01/06 TAKING NORCO 7.5-325 MG TABLET 1 TABLET NEEDED ORALLY EVERY 6 HRS, NOTES: 01/08 2000 TAKING CYCLOBENZAPRINE HCL 10 MG TABLET 1 TABLET NEEDED ORALLY BID, NOTES: 01/07 2200 TAKING METHYLPHENIDATE HCL 10 MG TABLET 1 TABLET ORALLY TAKE 2 TABS EVERY MORNING AND AT 1 PM MDD=3, NOTES: 01/08 700 TAKING VALIUM 2 MG TABLET 1 TABLET NEEDED ORALLY BEFORE BEDTIME MDD=1, NOTES: NONE RECENT TAKING OTEZLA 30 MG TABLET 1 TABLET ORALLY DAILY, NOTES: 01/08 700 TAKING MAGNESIUM 500 MG TABLET 1-2 TABS ORALLY ONCE A DAY, NOTES: 01/08 700 NOT-TAKING EMLA 2.5 CREAM PERCENT EXTERNALLY THREE TIMES A DAY NEEDED NOT-TAKING PROBIOTIC CAPSULE ORALLY BID NOT-TAKING VITAMIN D 5000 UNIT CAPSULE 1 TABLET ORALLY DAILY NOT-TAKING SOMA 350 MG TABLET ORALLY DAILY AT BEDTIME MDD=1 NOT-TAKING ASPIR-81 81 MG TABLET DELAYED RELEASE 1 TABLET ORALLY ONCE A DAY, NOTES: 03/18/16 0800 NOT-TAKING VITAMIN B COMPLEX 1000 MG TABLET ORALLY DAILY NOT-TAKING CALCIUM 500 MG TABLET ORALLY DAILY NOT-TAKING ZANAFLEX 4 MG TABLET ORALLY 4MG TWICE DAILY, NOTES: 04/19/16 0900 NOT-TAKING FIORICET TABLET 2 TABLET NEEDED ORALLY EVERY 4 HRS, NOTES: MAX DAILY DOSE 6 TABS NOT-TAKING SUMATRIPTAN SUCCINATE SOLUTION MAY REPEAT IN 1 HOUR IF NEEDED SUBCUTANEOUS NEEDED NOT-TAKING QUININE SULFATE 324 MG CAPSULE 2 CAPSULES WITH FOOD ORALLY AT BEDTIME MEDICATION LIST REVIEWED AND RECONCILED WITH THE PATIENT PAST MEDICAL HISTORY HYPOTHYROIDISM SJOGRENS FIBROMYALGIA MIGARINES ENDOMETREOISIS POLYCYSTIC OVARY DISEASE IBS DDD OSTEOPOROSIS TIGGER POINT INJECTIONS ALLERGIES FLECTOR: RASH GABAPENTIN: MIGRANE TRAMADOL: MIGRANE TOPIRAMATE: PANIC ATTACKS DULOXETINE HCL: MIGRANE SULFA (FOR ALLERGY USE ONLY): NAUSEA/ VOMITING PREGABALIN: WEIGHT GAIN TAPE: RASH REVIEW OF SYSTEMS REVIEWED BY: PROVIDER: . CONSTITUTIONAL: ANY CHANGE IN YOUR MEDICAL CONDITION? NO . CHILLS NO . FEVER NO . INFECTION: DO YOU HAVE NEW INFECTIONS? NO . DO YOU HAVE HISTORY OF MRSA? NO . MUSCULOSKELETAL: ANY NEW PATTERNS OF PAIN OR NUMBNESS? YES, RIGHT HAND NERVE PAIN X 3 WEEKS . GASTROENTEROLOGY: ANY NEW CHANGE IN BOWEL CONTROL? NO . GENITOURINARY: ANY NEW CHANGE IN BLADDER CONTROL? NO . IS THERE A CHANCE YOU COULD BE ? NO . HEMATOLOGY/LYMPH: DO YOU TAKE ANY BLOOD THINNERS? (FOR EXAMPLE- COUMADIN, PLAVIX, AGGRENOX, PLATEL, PRADAXA, OR XARELTO) NO . WHEN WAS YOUR LAST DOSE? DATE: TIME: . NEUROLOGY: HAVE YOU FALLEN IN THE PAST 6 MONTHS? NO . ANY NEW EXTREMITY NUMBNESS OR WEAKNESS? NO . CARDIOLOGY: DO YOU HAVE A PACEMAKER OR DEFIBRILLATOR? NO . RESPIRATORY: HAVE YOU BEEN SICK IN THE PAST WEEK? NO . FEVER NO . FLU LIKE SYMPTOMS? NO . COUGH NO . INTEGUMENTARY: DO YOU HAVE ANY RASHES OR OPEN SORES? NO . ALLERGIC/IMMUNO: ARE YOU ALLERGIC TO SHELLFISH OR IV DYE? NO . ANY NEW ALLERGIES? NO . PSYCHIATRIC: DO YOU HAVE THOUGHTS OF HURTING YOURSELF OR SOMEONE ELSE? NO . ARE YOU ABUSED, NEGLECTED, OR IN AN UNSAFE ENVIRONMENT? NO . ENDOCRINOLOGY: ARE YOU DIABETIC? NO . OTHER: DO YOU NEED ANY PRESCRIPTIONS? NO . IF YES, PLEASE LIST: ____ . ANY NEW PROBLEMS WITH YOUR MEDICATIONS? NO . WHEN DID YOU LAST EAT? 01/07/172199 . WHEN DID YOU LAST DRINK? 01/07/172199 . WHAT DID YOU LAST DRINK? SODA . NAME OF PERSON DRIVING YOU HOME? TOMMY . DO YOU HAVE ANY OTHER QUESTIONS OR CONCERNS WOOD HEEL FLAP INSERTER IS THINKING ABOUT RITUXAR . VITAL SIGNS WT 130 LBS, HT 61 IN, BMI 24.56 INDEX, BP 131/73 MM HG, HR 88 /MIN, RR 16 /MIN, TEMP 98.4 F, OXYGEN SAT % 100%, REVIEWED BY: AD. ASSESSMENTS MYALGIA - M79.1 (PRIMARY) PROCEDURES PN TRIGGER POINT INJECTION WITH STEROIDS PRE PROCEDURE DIAGNOSIS 1. MYALGIA 2. PAIN AT BILATERAL NECK AREA AND BILATERAL SHOULDER AREA POST PROCEDURE DIAGNOSIS 1. MYALGIA 2. PAIN AT BILATERAL NECK AREA AND BILATERAL SHOULDER AREA PROCEDURE TRIGGER POINT INJECTION AT BILATERAL NECK AREA AND BILATERAL SHOULDER AREA SURGEON DR. CR BENOIT VASCULAR PHYSICIAN NONE ANESTHESIA LOCAL PRE PROCEDURE NOTE THE PATIENT HAS A HISTORY OF CHRONIC PAIN AT THE RIGHT AND LEFT NECK AREA AND AT THE RIGHT AND LEFT SHOULDER AREA. I EVALUATE THE PATIENT AND REVIEWED THE CHART. THERE IS EVIDENCE OF BANDS OF TISSUE WITH RESTRICTION OF MOVEMENT AND PRESENCE OF TRIGGER POINT AT THE AFFECTED AREA. I WENT OVER THE RISKS, ALTERNATIVES, AND BENEFITS ASSOCIATED WITH THIS PROCEDURE. THE PATIENT WOULD LIKE TO PROCEED AND GIVE CONSENT TO PERFORMED THE PROCEDURE. THE PATIENT DENIES UNEXPLAINABLE WEIGHT LOSS, FEVER, CHILLS, OR NEW CHANGES IN URINARY OR BOWEL CONTROL DESCRIPTION OF PROCEDURE THE PATIENT WAS BROUGHT TO THE PROCEDURE ROOM AND PLACED IN THE SITTING POSITION. THE AREA WAS CLEANED WITH ALCOHOL. THE PROCEDURE WAS DONE USING ASEPTIC STERILE TECHNIQUE. I CHECKED LATERALITY AND THE LEVEL WHERE THE PROCEDURE WAS GOING TO BE PERFORMED WITH THE PATIENT AND THE SUPPORTING STAFF AT THE MOMENT OF THE TIME OUT IN THE PROCEDURE ROOM. USING A 25-GAUGE NEEDLE, TRIGGER POINTS WERE INJECTED AT THE RIGHT AND LEFT NECK AREA AND THE RIGHT AND LEFT SHOULDER AREA WITH A TOTAL OF 40 ML OF BUPIVACAINE 0.25% AND KENALOG 40 MG. THERE WAS NO EVIDENCE OF BLOOD, PARESTHESIA OR CEREBROSPINAL FLUID DURING THE PROCEDURE. THE PATIENT WAS SENT TO THE RECOVERY ROOM. THE PATIENT WAS MOVING THE EXTREMITIES AND DOING WELL. THERE WAS NO COMPLICATION DURING THE PROCEDURE POST PROCEDURE NOTE THE PATIENT WILL BE SEEN IN A FOLLOW UP IN THE NEXT FEW WEEKS. INSTRUCTIONS WERE GIVEN, QUESTIONS WERE ANSWERED, AND THE PATIENT EXPRESSED UNDERSTANDING AND AGREES WITH THE PLAN. I ARTIE HOLLINGSWORTH DOCUMENTED THE ABOVE INFORMATION ACTING A BREAD BAKER FOR DR. BENOIT. I HAVE REVIEW THE ABOVE DOCUMENT WRITTEN BY ARTIE OCASIOIBSera AND I VERIFY THAT IS IT ACCURATE. PROCEDURE CODES 65260 INJECT TRIGGER POINTS 3/> DISPOSITION & COMMUNICATION FOLLOW UP 3 WEEKS ELECTRONICALLY SIGNED BY CR BENOIT MD ON 01/20/2017 AT 07:58 PM EDT DISCLAIMER : THIS IS A VISIT SUMMARY EXTRACTED FROM THE [employer] CHART. IT IS NOT A COPY OF THE [employer] PROGRESS NOTE. ANTONELLA
== END ==
LOC: M PAIN 08:30
PROVIDERS: ATTEND Anesthesiology
DX: G89.29 Other chronic pain (principal); M54.2 Cervicalgia; M25.511 Pain in right shoulder; M25.512 Pain in left shoulder; M79.1 Myalgia; E03.9 Hypothyroidism, unspecified; M35.00 Sjogren syndrome, unspecified; G43.909 Migraine, unspecified, not intractable, without status migrainosus; Z88.5 Allergy status to narcotic agent; Z88.2 Allergy status to sulfonamides; Z88.8 Allergy status to other drugs, medicaments and biological substances; L23.1 Allergic contact dermatitis due to adhesives; Z79.899 Other long term (current) drug therapy
CPT/HCPCS: 20553; J3301

== ENCOUNTER → 2017-01-15 | Outpatient (REF) | payer BC ==
[~2017-01-15] MED LIST changes: -BUPIVACAINE HCL 0.25% 10 ML VIAL As Ordered ONE; -BUPIVACAINE HCL 0.25% 30 ML VIAL As Ordered ONE; -TRIAMCINOLONE ACETONIDE SUSP 40 MG/ML VIAL (J3301) As Ordered ONE
[2017-01-18 00:06] LABS: Lyme Disease IgG/IgM Antibodie <0.91 ISR (0.00-0.90); Lyme Disease IgM Ab Quantitati <0.80 index (0.00-0.79)
== END ==
LOC: M LAB REF 17:45
PROVIDERS: ATTEND Internal Medicine
DX: R53.83 Other fatigue (principal)

== ENCOUNTER → 2017-01-28 | Outpatient (CLI) | payer BC ==
--- NOTE | 2017-01-29 00:35 | ECWPNPC ---
PATIENT NAME: FRANCK CROW : 1965 GENDER: FEMALE VISIT DATE: 01/28/2017 DISCHARGE DATE: 01/28/17 0944 VISIT LOCKED DATE TIME: PHYSICIAN: ANDREA CHACON RESOURCE: ANDREA CHACON REASON FOR APPOINTMENT 1. POST PROCEDURE HISTORY OF PRESENT ILLNESS HISTORY OF PRESENT ILLNESS: PAIN THE PATIENT DESCRIBES THE PAIN... FALL RISK SCREENING: SCREENING :NO FALLS IN THE PAST YEAR TODAY'S VISIT: NOTES: RATES PAIN TODAY 4-5/10 IS S/P TRIGGER POINT INJECTION TO NECK AND BILATERAL SHOULDERS WITH STEROIDS COMPLETED ON 01/08/17. FEELS THIS DID HELP THE PAIN IN THE AREAS INJECTED. IS HAVING SIGNIFICANT BURNING AND HAS NEW SORES ON TONGUE AND IS HAVING PAIN ON TONGUE. THIS IS DISRUPTING SLEEP. HAVING A HARD TIME TALKING, SWALLOWING. HAS NEW ENLARGED LYMPHNODE AT BASE OF SKULL RIGHT SIZE.CT OF THIS DONE. HAD RECENT LYME TITER WHICH WAS NEGATIVE BUT WILL BE ASKING FOR REPEAT IN A MONTH. CURRENTLY IS NOT TAKING THE OTEZLA. WILL BE SEEING THE ENT THIS MORNING. IS TAKING THE FLEXERIL AND TIZANDINE AND THIS HAS BEEN HELPFUL. REPORTS METHYLPHENIDATE HAS BEEN HELPFUL AT RELIEVING THE FATIGUE AND THE SPLIT DOSING IS WORKING WELL. NOTES THE MED IS NOT IMPAIRING SLEEP. TRIES NOT TO TAKE THE AFTER NOON DOSE ON A DAILY BASIS.. CURRENT MEDICATIONS TAKING BENTYL 10 MG CAPSULE 1 CAPSULE ORALLY ONCE DAILY NEEDED TAKING THYROID 60 MG TABLET 1 TABLET ORALLY ONCE A DAY TAKING EYE DROPS SOLUTION 1 DROP EACH EYE OPHTHALMIC DIRECTED TAKING CARAFATE 1 GM TABLET 1 TABLET ON AN EMPTY STOMACH ORALLY 1/2 HR BEFORE MEALS AND AT BED NEEDED TAKING CARISOPRODOL 350 MG TABLET 1 TABLET NEEDED ORALLY TAKE ONE AT BEDTIME MDD=1 TAKING SUMATRIPTAN SUCCINATE REFILL 4 MG/0.5ML SOLUTION CARTRIDGE DIRECTED SUBCUTANEOUS DIRECTED TAKING RIZATRIPTAN BENZOATE 10 MG TABLET 1 TABLET NEEDED ONE TIME ORALLY BID MDD=2 FOR MIGRAINE TAKING TIZANIDINE HCL 4 MG TABLET 1 TAB ORALLY THREE TIMES DAILY TAKING NORCO 7.5-325 MG TABLET 1 TABLET NEEDED ORALLY EVERY 6 HRS TAKING CYCLOBENZAPRINE HCL 10 MG TABLET 1 TABLET NEEDED ORALLY BID TAKING METHYLPHENIDATE HCL 10 MG TABLET 1 TABLET ORALLY TAKE 2 TABS EVERY MORNING AND AT 1 PM MDD=3 TAKING VALIUM 2 MG TABLET 1 TABLET NEEDED ORALLY BEFORE BEDTIME MDD=1 TAKING OTEZLA 30 MG TABLET 1 TABLET ORALLY DAILY TAKING MAGNESIUM 500 MG TABLET 1-2 TABS ORALLY ONCE A DAY NOT-TAKING EMLA 2.5 CREAM PERCENT EXTERNALLY THREE TIMES A DAY NEEDED NOT-TAKING PROBIOTIC CAPSULE ORALLY BID NOT-TAKING VITAMIN D 5000 UNIT CAPSULE 1 TABLET ORALLY DAILY NOT-TAKING SOMA 350 MG TABLET ORALLY DAILY AT BEDTIME MDD=1 NOT-TAKING ASPIR-81 81 MG TABLET DELAYED RELEASE 1 TABLET ORALLY ONCE A DAY, NOTES: 03/18/16 0800 NOT-TAKING VITAMIN B COMPLEX 1000 MG TABLET ORALLY DAILY NOT-TAKING CALCIUM 500 MG TABLET ORALLY DAILY NOT-TAKING ZANAFLEX 4 MG TABLET ORALLY 4MG TWICE DAILY, NOTES: 04/19/16 0900 NOT-TAKING FIORICET TABLET 2 TABLET NEEDED ORALLY EVERY 4 HRS, NOTES: MAX DAILY DOSE 6 TABS NOT-TAKING SUMATRIPTAN SUCCINATE SOLUTION MAY REPEAT IN 1 HOUR IF NEEDED SUBCUTANEOUS NEEDED NOT-TAKING QUININE SULFATE 324 MG CAPSULE 2 CAPSULES WITH FOOD ORALLY AT BEDTIME MEDICATION LIST REVIEWED AND RECONCILED WITH THE PATIENT PAST MEDICAL HISTORY HYPOTHYROIDISM SJOGRENS FIBROMYALGIA MIGARINES ENDOMETREOISIS POLYCYSTIC OVARY DISEASE IBS DDD OSTEOPOROSIS TIGGER POINT INJECTIONS ALLERGIES FLECTOR: RASH GABAPENTIN: MIGRANE TRAMADOL: MIGRANE TOPIRAMATE: PANIC ATTACKS DULOXETINE HCL: MIGRANE SULFA (FOR ALLERGY USE ONLY): NAUSEA/ VOMITING PREGABALIN: WEIGHT GAIN TAPE: RASH SURGICAL HISTORY HYSTERECTOMY 1998 7 LAPAROSCOPY AND WEDGE RESECTION OF OVARIES ONE ALMOST EVERY YEAR UNTIL HYSTER 1983 LUMBAR LAMINECTOMY & DISCECTOMY L5-S1&2 2015 SKIN CANCER REMOVAL 2006 GANGLION CYST REMOVAL 2002 C-SECTIONS 1991&1995 KIDNEY SURGERY AGE 20 HOSPITALIZATION/MAJOR DIAGNOSTIC PROCEDURE SAME ABOVE REVIEW OF SYSTEMS REVIEWED BY: PROVIDER: ANDREA MATUTE . CONSTITUTIONAL: ANY CHANGE IN YOUR MEDICAL CONDITION? NO . CHILLS NO . FEVER NO . INFECTION: DO YOU HAVE NEW INFECTIONS? NO . DO YOU HAVE HISTORY OF MRSA? NO . MUSCULOSKELETAL: ANY NEW PATTERNS OF PAIN OR NUMBNESS? YES, MOUTH BURNING, AND FRONT OF NECK . GASTROENTEROLOGY: GENERAL INTERMITTANT SEVERE GI PAIN . ANY NEW CHANGE IN BOWEL CONTROL? NO . GENITOURINARY: ANY NEW CHANGE IN BLADDER CONTROL? NO . IS THERE A CHANCE YOU COULD BE ? NO . HEMATOLOGY/LYMPH: DO YOU TAKE ANY BLOOD THINNERS? (FOR EXAMPLE- COUMADIN, PLAVIX, AGGRENOX, PLATEL, PRADAXA, OR XARELTO) NO . WHEN WAS YOUR LAST DOSE? DATE: TIME: . NEUROLOGY: HAVE YOU FALLEN IN THE PAST 6 MONTHS? NO . ANY NEW EXTREMITY NUMBNESS OR WEAKNESS? NO . CARDIOLOGY: DO YOU HAVE A PACEMAKER OR DEFIBRILLATOR? NO . RESPIRATORY: HAVE YOU BEEN SICK IN THE PAST WEEK? NO . FEVER NO . FLU LIKE SYMPTOMS? NO . COUGH NO . INTEGUMENTARY: DO YOU HAVE ANY RASHES OR OPEN SORES? NO . ALLERGIC/IMMUNO: ARE YOU ALLERGIC TO SHELLFISH OR IV DYE? NO . ANY NEW ALLERGIES? NO . PSYCHIATRIC: DO YOU HAVE THOUGHTS OF HURTING YOURSELF OR SOMEONE ELSE? NO . ARE YOU ABUSED, NEGLECTED, OR IN AN UNSAFE ENVIRONMENT? NO . ENDOCRINOLOGY: ARE YOU DIABETIC? NO . OTHER: DO YOU NEED ANY PRESCRIPTIONS? YES, LIDOCAINE FOR MOUTH . IF YES, PLEASE LIST: ____ . ANY NEW PROBLEMS WITH YOUR MEDICATIONS? NO . WHEN DID YOU LAST EAT? ____ . WHEN DID YOU LAST DRINK? ____ . WHAT DID YOU LAST DRINK? ____ . NAME OF PERSON DRIVING YOU HOME? ____ . DO YOU HAVE ANY OTHER QUESTIONS OR CONCERNS NO . VITAL SIGNS WT 128 LBS, HT 61 IN, BMI 24.18 INDEX, BP 141/81 MM HG, HR 101 /MIN, RR 18 /MIN, TEMP 98.7 F, OXYGEN SAT % 99%, NA INITIALS SC 08:51, REVIEWED BY: PIERRE. EXAMINATION GENERAL EXAMINATION: GENERAL APPEARANCE:NO ACUTE DISTRESS, APPEARS DEHYDRATED WITH DRY MUCOUS MEMBRANES. PSYCHAPPROPRIATE MOOD AND AFFECT . HEENT:TONGUE WITH WHITE COATING. PHARYNX DUSKY RED, SWOLLEN. NECK:MULTIPLE TENDER ENLARGEED LYMPHNODES NOTED AT BASE OF SKULL RIGHT SIDE. LUNGS:CLEAR TO AUSCULTATION BILATERALLY, NO WHEEZES, RHONCHI, RALES. HEART:NO MURMURS, REGULAR RATE AND RHYTHM, . MUSCULOSKELETAL:MUSCLE STRENGTH TESTING 5/5 BILATERAL UPPER AND LOWER EXTREMITIES. TENDER AND TRIGGERPOINTS WITH TIGHT FIBROUS BANDS IDENTIFIED OVER LUMBAR AND CERVICAL PARAVERTEBRAL MUSCLES.. EXTREMITIES:NO CLUBBING, NO EDEMA. ASSESSMENTS MYALGIA - M79.1 (PRIMARY) LUMBAR POST-LAMINECTOMY SYNDROME - M96.1 FIBROMYALGIA - M79.7 EXCESSIVE DAYTIME SLEEPINESS - G47.19 TREATMENT MYALGIA START LIDOCAINE VISCOUS SOLUTION, 2 %, DIRECTED, MOUTH/THROAT, APPLY WITH SWAB TO PAINFUL LESIONS IN MOUTH Q4 PRS PRN, 30 DAY(S), 90 MILLILITER, REFILLS 1 REFILL METHYLPHENIDATE HCL TABLET, 10 MG, 1 TABLET, ORALLY, TAKE 2 TABS EVERY MORNING AND AT 1 PM MDD=3, 30 DAY(S), 90, REFILLS 0 NOTES: CONTINUE CURRENT MEDS. CLINICAL NOTES: ISTOP REGISTRY REVIEWED AND DEMNOSTRATES COMPLLIANCE. BRINGS IN MEDICATIONS WHICH IS APPROPRIATE FOR WHAT WAS DISPENSED. RECENT URINE TOXICOLOGY REVIEWED. NO UNAUTHORIZED MEDICATIONS. NO ILLICIT SUBSTANCES AND PRESCRIBED MEDICATIONS WERE PRESENT. PROCEDURE CODES FA211 ESTABILISHED PATIENT [facility] CHARGE DISPOSITION & COMMUNICATION FOLLOW UP REASON: [facility] - NEED RECENT CT SCANS AND XRAYS D[facility] ELECTRONICALLY SIGNED BY TARIK FRANKS ON 01/28/2017 AT 11:02 AM EDT DISCLAIMER : THIS IS A VISIT SUMMARY EXTRACTED FROM THE [employer] CHART. IT IS NOT A COPY OF THE [employer] PROGRESS NOTE. ANTONELLA
== END ==
LOC: M PAIN 09:00
PROVIDERS: ATTEND Nurse Practitioner Family
DX: G89.29 Other chronic pain (principal); M79.1 Myalgia; M96.1 Postlaminectomy syndrome, not elsewhere classified; G47.19 Other hypersomnia; E03.9 Hypothyroidism, unspecified; G43.909 Migraine, unspecified, not intractable, without status migrainosus; M35.00 Sjogren syndrome, unspecified; N80.9 Endometriosis, unspecified; E28.2 Polycystic ovarian syndrome; K58.9 Irritable bowel syndrome, unspecified; M81.0 Age-related osteoporosis without current pathological fracture; Z79.891 Long term (current) use of opiate analgesic; Z79.899 Other long term (current) drug therapy; Z85.828 Personal history of other malignant neoplasm of skin; Z88.5 Allergy status to narcotic agent; Z88.2 Allergy status to sulfonamides; Z91.048 Other nonmedicinal substance allergy status; Z88.8 Allergy status to other drugs, medicaments and biological substances

== ENCOUNTER → 2017-02-06 | Outpatient (CLI) | payer BC ==
[~2017-02-06] MED LIST changes: +E-Z-GAS II EFFERVESCENT PACKET (SODIUM BICARB./CITRIC ACID/SIMETHICONE) As Ordered ONE; +E-Z-HD 98% w/w 340GM SUSP BTL As Ordered ONE; +E-Z-PAQUE 96% w/w SUSP 176GM BTL As Ordered ONE; +ISOVUE-370 76% 100ML VIAL (Q9967) As Ordered ONE
--- NOTE | 2017-02-06 11:16 | REP ---
CT NECK WITH CONTRAST: HISTORY: Right occipital lymph node enlargement. CONTRAST: Isovue 370, 75 mL. Calcifications are present in the tonsils. This is secondary to previous inflammatory disease. The naso-, melissa-, and hypopharynx, larynx and subglottic trachea are otherwise, normal in appearance. The salivary and thyroid glands are normal in size and density. Small lymph nodes less than 1 cm in size are present in the internal jugular chains, posterior triangles, submandibular and submental areas as well as in the posterior subcutaneous tissue at the C1-2 level. Minimal degenerative change is present in the cervical spine. The lung apices are clear. The visualized sinuses are clear. IMPRESSION: There is no neck mass or adenopathy. Signed by Barron Kyle MD 02/06/2017 11:22 A
--- NOTE | 2017-02-06 14:42 | REP ---
Esophagram The procedure was performed under the direct supervision of Dr. Limon. The images were reviewed with Dr. Limon. A single view PA chest x-ray is submitted as a principal developer film. The superior mediastinal structures are midline. The heart size is within normal limits. The lungs are clear. Liquid barium and gas producing granules were given in the erect position as well as liquid barium in the prone oblique positions in order to perform a double contrast esophagram examination. The oral and pharyngeal stages of deglutition are unremarkable. Esophageal transport is prompt and efficient and there is no esophagitis, stricture, mucosal ring or hiatal hernia. Gastroesophageal reflux is not demonstrated on this examination. Impression: Essentially unremarkable double contrast esophagram examination. 56 seconds of fluoro time was utilized for this procedure. Reviewed by ANNIKA Hobson 02/06/2017 02:20 PSigned by Serafin Limon MD 02/06/2017 02:32 P
== END ==
LOC: M RAD 10:14
PROVIDERS: ATTEND Otolaryngology
DX: R22.1 Localized swelling, mass and lump, neck (principal); R13.10 Dysphagia, unspecified
CPT/HCPCS: 70491; 74220; Q9967

== ENCOUNTER → 2017-04-23 | Outpatient (CLI) | payer BC ==
[~2017-04-23] MED LIST changes: -E-Z-GAS II EFFERVESCENT PACKET (SODIUM BICARB./CITRIC ACID/SIMETHICONE) As Ordered ONE; -E-Z-HD 98% w/w 340GM SUSP BTL As Ordered ONE; -E-Z-PAQUE 96% w/w SUSP 176GM BTL As Ordered ONE; -ISOVUE-370 76% 100ML VIAL (Q9967) As Ordered ONE
--- NOTE | 2017-05-07 00:37 | ECWPNPC ---
PATIENT NAME: FRANCK CROW : 1965 GENDER: FEMALE VISIT DATE: 04/23/2017 DISCHARGE DATE: 04/23/17 1140 VISIT LOCKED DATE TIME: PHYSICIAN: ANDREA CHACON RESOURCE: ANDREA CHACON HISTORY OF PRESENT ILLNESS HISTORY OF PRESENT ILLNESS: PAIN THE PATIENT DESCRIBES THE PAIN... FALL RISK SCREENING: SCREENING :NO FALLS IN THE PAST YEAR TODAY'S VISIT: NOTES: HAS ONE SPECIFIC AREA IN LEFT THORACIC REGION . NOTES PAIN IS SHARP AND NEAR CONSTANT. RATES PAIN TODAY 6/10. HAS SOLID MONTH OF HEADACHE. IS CURRENTLY ON OTEZLA GENERALLY 1/DAY BUT IS STILL HAVING INTENSE PROBLEM WITH DRY EYES AND GI TRACT. CURRENT MEDICATIONS TAKING BENTYL 10 MG CAPSULE 1 CAPSULE ORALLY ONCE DAILY NEEDED TAKING THYROID 60 MG TABLET 1 TABLET ORALLY ONCE A DAY TAKING EYE DROPS SOLUTION 1 DROP EACH EYE OPHTHALMIC DIRECTED TAKING CARAFATE 1 GM TABLET 1 TABLET ON AN EMPTY STOMACH ORALLY 1/2 HR BEFORE MEALS AND AT BED NEEDED TAKING RIZATRIPTAN BENZOATE 10 MG TABLET 1 TABLET NEEDED ONE TIME ORALLY BID MDD=2 FOR MIGRAINE TAKING TIZANIDINE HCL 4 MG TABLET 1 TAB ORALLY THREE TIMES DAILY TAKING NORCO 7.5-325 MG TABLET 1 TABLET NEEDED ORALLY EVERY 6 HRS TAKING VALIUM 2 MG TABLET 1 TABLET NEEDED ORALLY BEFORE BEDTIME MDD=1 TAKING OTEZLA 30 MG TABLET 1 TABLET ORALLY DAILY TAKING MAGNESIUM 500 MG TABLET 1-2 TABS ORALLY ONCE A DAY TAKING LIDOCAINE VISCOUS 2 % SOLUTION DIRECTED MOUTH/THROAT APPLY WITH SWAB TO PAINFUL LESIONS IN MOUTH Q4 PRS PRN TAKING METHYLPHENIDATE HCL 10 MG TABLET 1 TABLET ORALLY TAKE 2 TABS EVERY MORNING AND AT 1 PM MDD=3 TAKING SUMATRIPTAN SUCCINATE REFILL 4 MG/0.5ML SOLUTION CARTRIDGE DIRECTED SUBCUTANEOUS DIRECTED TAKING CYCLOBENZAPRINE HCL 10 MG TABLET 1 TABLET NEEDED ORALLY BID TAKING VITAMIN D 5000 UNIT CAPSULE 1 TABLET ORALLY DAILY NOT-TAKING CARISOPRODOL 350 MG TABLET 1 TABLET NEEDED ORALLY TAKE ONE AT BEDTIME MDD=1 NOT-TAKING EMLA 2.5 CREAM PERCENT EXTERNALLY THREE TIMES A DAY NEEDED NOT-TAKING PROBIOTIC CAPSULE ORALLY BID NOT-TAKING SOMA 350 MG TABLET ORALLY DAILY AT BEDTIME MDD=1 NOT-TAKING ASPIR-81 81 MG TABLET DELAYED RELEASE 1 TABLET ORALLY ONCE A DAY, NOTES: 03/18/16 0800 NOT-TAKING VITAMIN B COMPLEX 1000 MG TABLET ORALLY DAILY NOT-TAKING CALCIUM 500 MG TABLET ORALLY DAILY NOT-TAKING ZANAFLEX 4 MG TABLET ORALLY 4MG TWICE DAILY, NOTES: 04/19/16 0900 NOT-TAKING FIORICET TABLET 2 TABLET NEEDED ORALLY EVERY 4 HRS, NOTES: MAX DAILY DOSE 6 TABS NOT-TAKING SUMATRIPTAN SUCCINATE SOLUTION MAY REPEAT IN 1 HOUR IF NEEDED SUBCUTANEOUS NEEDED NOT-TAKING QUININE SULFATE 324 MG CAPSULE 2 CAPSULES WITH FOOD ORALLY AT BEDTIME MEDICATION LIST REVIEWED AND RECONCILED WITH THE PATIENT PAST MEDICAL HISTORY HYPOTHYROIDISM SJOGRENS FIBROMYALGIA MIGARINES ENDOMETREOISIS POLYCYSTIC OVARY DISEASE IBS DDD OSTEOPOROSIS TIGGER POINT INJECTIONS ALLERGIES FLECTOR: RASH GABAPENTIN: MIGRANE TRAMADOL: MIGRANE TOPIRAMATE: PANIC ATTACKS DULOXETINE HCL: MIGRANE SULFA (FOR ALLERGY USE ONLY): NAUSEA/ VOMITING PREGABALIN: WEIGHT GAIN TAPE: RASH SURGICAL HISTORY HYSTERECTOMY 1997 7 LAPAROSCOPY AND WEDGE RESECTION OF OVARIES ONE ALMOST EVERY YEAR UNTIL HYSTER 1983 LUMBAR LAMINECTOMY & DISCECTOMY L5-S1&2 2015 SKIN CANCER REMOVAL 2006 GANGLION CYST REMOVAL 2002 C-SECTIONS 1991&1995 KIDNEY SURGERY AGE 20 SOCIAL HISTORY GENERAL: TOBACCO USE ARE YOU A:NONSMOKER ALCOHOL SCREENING DID YOU HAVE A DRINK CONTAINING ALCOHOL IN THE PAST YEAR?NO POINTS0 INTERPRETATIONNEGATIVE RECREATIONAL DRUG USE DRUG USE?NO CAFFEINE CAFFEINE USE?YES HOW OFTEN AND HOW MUCH? 2 CUPS DAILY SEXUAL HX HAD SEX IN THE LAST 12 MONTHS (VAGINAL, ORAL, OR ANAL)?NO HAVE YOU EVER HAD AN STD?NO OCCUPATION: UNEMPLOYED. EXERCISE: WALKS. MARITAL STATUS: . PETS: 4 CATS,4 DOGS,CHICKENS. MANDAEN NO ANABAPTIST BELIEFS THAT WOULD IMPACT HEALTH CARE. LANGUAGE POLISH. LEARNING BARRIERS / SPECIAL NEEDS ORIENTED TO PLAN OF CARE: PATIENT, PAIN MANAGEMENT PATIENT, ORIENTED TO PLAN OF CARE: PATIENT, PAIN MANAGEMENT PATIENT. NEW PATIENT PAIN DIARY TODAY'S VISITNOTES FROM 0-10, WHAT LEVEL IS YOUR PAIN TODAY?0 PAIN CLINIC PFS, CLERGY, PUBLIC HEALTH REFERRALS PFS REFERRAL NEEDED?NO CLERGY REFERRAL NEEDED?NO PUBLIC HEALTH REFERRAL NEEDED?NO WAS THE PROVIDER NOTIFIED OF ANY PERTINENT INFO?NO HAS THE PATIENT BEEN EDUCATED REGARDING HIS/HER PLAN OF CARE?YES HAS THE PATIENT BEEN EDUCATED REGARDING PAIN, THE RISK FOR PAIN, THE IMPORTANCE OF EFFECTIVE PAIN MANAGEMENT, AND THE PAIN ASSESSMENT PROCESS?YES TRAVEL OUTSIDE US: DENIES. HOSPITALIZATION/MAJOR DIAGNOSTIC PROCEDURE SAME ABOVE REVIEW OF SYSTEMS REVIEWED BY: PROVIDER: . CONSTITUTIONAL: ANY CHANGE IN YOUR MEDICAL CONDITION? NO . CHILLS NO . FEVER NO . INFECTION: DO YOU HAVE NEW INFECTIONS? NO . DO YOU HAVE HISTORY OF MRSA? NO . MUSCULOSKELETAL: ANY NEW PATTERNS OF PAIN OR NUMBNESS? NO . GASTROENTEROLOGY: GENERAL INTENSE LOWER GI PAIN WITH DIARRHEA WHICH IS OCCURRING EVERY MORNING . ANY NEW CHANGE IN BOWEL CONTROL? NO . GENITOURINARY: ANY NEW CHANGE IN BLADDER CONTROL? NO . IS THERE A CHANCE YOU COULD BE ? NO . HEMATOLOGY/LYMPH: DO YOU TAKE ANY BLOOD THINNERS? (FOR EXAMPLE- COUMADIN, PLAVIX, AGGRENOX, PLATEL, PRADAXA, OR XARELTO) NO . WHEN WAS YOUR LAST DOSE? DATE: TIME: . NEUROLOGY: HAVE YOU FALLEN IN THE PAST 6 MONTHS? NO . ANY NEW EXTREMITY NUMBNESS OR WEAKNESS? NO . CARDIOLOGY: DO YOU HAVE A PACEMAKER OR DEFIBRILLATOR? NO . RESPIRATORY: HAVE YOU BEEN SICK IN THE PAST WEEK? YES . FEVER NO . FLU LIKE SYMPTOMS? NO . COUGH NO . INTEGUMENTARY: DO YOU HAVE ANY RASHES OR OPEN SORES? NO . ALLERGIC/IMMUNO: ARE YOU ALLERGIC TO SHELLFISH OR IV DYE? NO . ANY NEW ALLERGIES? NO . PSYCHIATRIC: DO YOU HAVE THOUGHTS OF HURTING YOURSELF OR SOMEONE ELSE? NO . ARE YOU ABUSED, NEGLECTED, OR IN AN UNSAFE ENVIRONMENT? NO . ENDOCRINOLOGY: ARE YOU DIABETIC? NO . OTHER: DO YOU NEED ANY PRESCRIPTIONS? YES, VICODIN . IF YES, PLEASE LIST: ____ . ANY NEW PROBLEMS WITH YOUR MEDICATIONS? NO . WHEN DID YOU LAST EAT? ____ . WHEN DID YOU LAST DRINK? ____ . WHAT DID YOU LAST DRINK? ____ . NAME OF PERSON DRIVING YOU HOME? ____ . DO YOU HAVE ANY OTHER QUESTIONS OR CONCERNS NO . HEENT: GENERAL SAW PCP AND ENT DOC FOR ENLARGED LYMPH NODE RIGHT NECK/HEAD. HE DID A SWALLOW TEST AND A SCOPE AND FOUND NO ISSUES. SAW RHEUMATOLOGY WHO WANTED A BIOPSY. SAW DR PEARSON. RESAW ENT WHO WANTED HER TO WAIT [address] LEBLANC WHO ALSO DID NOT WANT TO DO A BIOPSY. THE 3 MONTH ALBER IS . VITAL SIGNS WT 129.0 LBS, HT 61 IN, BMI 24.37 INDEX, BP 132/74 MM HG, HR 78 /MIN, RR 16 /MIN, TEMP 98.0 F, OXYGEN SAT % 98%, NA INITIALS TL 1050, REVIEWED BY: EM. EXAMINATION GENERAL EXAMINATION: GENERAL APPEARANCE:NO ACUTE DISTRESS, APPEARS DEHYDRATED WITH DRY MUCOUS MEMBRANES. PSYCHAPPROPRIATE MOOD AND AFFECT . HEENT:TONGUE WITH WHITE COATING. SMALL PALPABLE LYPH NODE RIGHT OCCIPUT. LUNGS:CLEAR TO AUSCULTATION BILATERALLY, NO WHEEZES, RHONCHI, RALES. HEART:NO MURMURS, REGULAR RATE AND RHYTHM, . MUSCULOSKELETAL:MUSCLE STRENGTH TESTING 5/5 BILATERAL UPPER AND LOWER EXTREMITIES. TENDER AND TRIGGERPOINTS WITH TIGHT FIBROUS BANDS IDENTIFIED OVER LUMBAR AND CERVICAL PARAVERTEBRAL MUSCLES.. EXTREMITIES:NO CLUBBING, NO EDEMA. ASSESSMENTS MYALGIA - M79.1 (PRIMARY) LUMBAR POST-LAMINECTOMY SYNDROME - M96.1 FIBROMYALGIA - M79.7 EXCESSIVE DAYTIME SLEEPINESS - G47.19 TREATMENT MYALGIA START SUCRALFATE TABLET, 1 GM, 1 TABLET ON AN EMPTY STOMACH, ORALLY, FOUR TIMES DAILY, 30 DAY(S), 120, REFILLS 1 REFILL NORCO TABLET, 7.5-325 MG, 1 TABLET NEEDED, ORALLY, EVERY 6 HRS, 30 DAY(S), 90, REFILLS 0 LAB: CBC WITH DIFFERENTIAL WBC 6.0 (4.0-10.0 - 10) RBC 4.78 (4.00-5.40 - 10) HEMOGLOBIN 13.1 (12.0-16.0 - G/DL) HEMATOCRIT 41.1 (36.0-47.0 - %) MCV 86.0 (80.0-96.0 - FL) MCH 27.4 (27.0-33.0 - PG) MCHC 31.9 (32.0-36.5 - G/DL) RDW 12.0 (11.5-14.5 - %) PLATELET COUNT 409 (150-450 - 10) LYMPH % 37.9 (24.0-44.0 - %) MONO % 11.3 (0.0-5.0 - %) NEUT % 46.6 (36.0-66.0 - %) EOS % 3.0 (0.0-3.0 - %) BASO % 1.0 (0.0-1.0 - %) NEUT # 2.8 (1.8-7.7 - 10) LYMPH # 2.3 (1.5-4.5 - 10) MONO # 0.7 (0.0-0.8 - 10) EOS # 0.2 (0.0-0.50 - 10) BASO # 0.1 (0.0-0.2 - 10) LAB: LYME DISEASE SCRN WITH CONFIRM LYME IGG/IGM AB <0.91 (0.00-0.90 - ISR) LYME AB IGM QUANT <0.80 (0.00-0.79 - INDEX) PROCEDURE CODES FA211 ESTABILISHED PATIENT [facility] CHARGE DISPOSITION & COMMUNICATION FOLLOW UP 3 MONTHS (REASON: BACK PAIN) ELECTRONICALLY SIGNED BY TARIK FRANKS ON 05/06/2017 AT 06:53 PM EST DISCLAIMER : THIS IS A VISIT SUMMARY EXTRACTED FROM THE [employer] CHART. IT IS NOT A COPY OF THE [employer] PROGRESS NOTE. ANTONELLA
== END ==
LOC: M PAIN 10:45
PROVIDERS: ATTEND Nurse Practitioner Family
DX: M96.1 Postlaminectomy syndrome, not elsewhere classified (principal); M79.7 Fibromyalgia; G47.19 Other hypersomnia; E03.9 Hypothyroidism, unspecified; M35.00 Sjogren syndrome, unspecified; Z88.5 Allergy status to narcotic agent; Z88.2 Allergy status to sulfonamides; L23.1 Allergic contact dermatitis due to adhesives; Z88.8 Allergy status to other drugs, medicaments and biological substances; Z79.891 Long term (current) use of opiate analgesic; Z79.899 Other long term (current) drug therapy

== ENCOUNTER → 2017-04-24 | Outpatient (CLI) | payer BC ==
[2017-04-24 18:58] LABS: BASO # 0.1 10^3/uL (0.0-0.2); EOS # 0.2 10^3/uL (0.0-0.50); IMMATURE GRANULOCYTE % 0.2 % (0-0); LYMPH # 2.3 10^3/uL (1.5-4.5); LYMPH % 37.9 % (24.0-44.0); MEAN CORPUSCULAR HEMOGLOBIN 27.4 pg (27.0-33.0); MEAN CORPUSCULAR HGB CONC 31.9 g/dl (32.0-36.5); MONO # 0.7 10^3/uL (0.0-0.8); MONO % 11.3 % (0.0-5.0); NEUTROPHILS # 2.8 10^3/uL (1.8-7.7); NEUTROPHILS % 46.6 % (36.0-66.0); PLATELET COUNT, AUTOMATED 409 10^3/uL (150-450)
[2017-04-29 00:07] LABS: Lyme Disease IgG/IgM Antibodie <0.91 ISR (0.00-0.90); Lyme Disease IgM Ab Quantitati <0.80 index (0.00-0.79)
== END ==
LOC: M WUC 11:21
PROVIDERS: ATTEND Nurse Practitioner Family
DX: M79.1 Myalgia (principal)

== ENCOUNTER → 2017-08-12 | Outpatient (CLI) | payer BC | LOC: M PAIN 09:30 | DX: M79.1 Myalgia (principal); M96.1 Postlaminectomy syndrome, not elsewhere classified; G47.19 Other hypersomnia; E03.9 Hypothyroidism, unspecified; Z79.891 Long term (current) use of opiate analgesic; Z79.899 Other long term (current) drug therapy; Z88.8 Allergy status to other drugs, medicaments and biological substances; Z91.048 Other nonmedicinal substance allergy status | CPT/HCPCS: G0463 ==

== ENCOUNTER → 2017-08-18 | Outpatient (CLI) | payer BC ==
[~2017-08-18] MED LIST changes: -ARMO90TA OR; -BENT10CA PO; +BUPIVACAINE HCL 0.25% 10 ML VIAL As Ordered; +BUPIVACAINE HCL 0.25% 30 ML VIAL As Ordered; -CALC500T36 PO; -EMLA TD; -FASTIN PO; -FIORICET OR; -FISHCAP OR; -GLYC1TAB17 PO; -GREEN TEA OR; -GREEPOW2 XX; -HYDR200T3 PO; -IBUP-1114 PO; -IMIT4KIT SC; -IMIT50TA PO; -IRON325T PO; -KLOR10TA OR; -LIDO5DIS EXT; -MAGN250T5 PO; -MAGN500T5 PO; -MULTIVIT OR; -NEUR300C PO; -OMEP40CA2 PO; -PROB1TAB PO; -RANI15TA PO; -RESTASIS OU; -SIME80TA PO; -SKEL800T5 OR; -SOMA350T OR; -THYROID MED; -TYLE325T5 PO; -VALI5TAB PO; -VERA120T OR; -VICO5TAB OR; -VIT D 2000 PO; -VIT D OR; -VITA200016 PO; -VITAMIN D50000 UNT; -VITATAB11 PO; -VOLT1GEL EX; -ZANA2CAP OR; -[UNRECOGNIZED DRUG - OTHER]; -[UNRECOGNIZED DRUG - OTHER]; -[UNRECOGNIZED DRUG - REMARK]; -eye drops OU; -plaquinel PO; -viscous lidocaine SSP
== END ==
LOC: M PAIN 10:15
DX: G89.29 Other chronic pain (principal); M79.1 Myalgia; E03.9 Hypothyroidism, unspecified; G43.909 Migraine, unspecified, not intractable, without status migrainosus; Z79.82 Long term (current) use of aspirin; Z79.891 Long term (current) use of opiate analgesic; Z79.899 Other long term (current) drug therapy; Z88.8 Allergy status to other drugs, medicaments and biological substances; Z91.048 Other nonmedicinal substance allergy status
CPT/HCPCS: 20553

== ENCOUNTER → 2017-08-25 | Outpatient (REF) | payer BC ==
[2017-08-25 17:58] LABS: VITAMIN B12 LEVEL 528 PG/ML
[2017-08-25 17:59] LABS: FOLATE 13.7 NG/ML
== END ==
LOC: M LAB REF 16:43
DX: R53.83 Other fatigue (principal)
CPT/HCPCS: 82746

== ENCOUNTER → 2017-09-12 | Outpatient (CLI) | payer BC | LOC: M PAIN 09:45 | DX: M79.1 Myalgia (principal); M96.1 Postlaminectomy syndrome, not elsewhere classified; M54.16 Radiculopathy, lumbar region; E03.9 Hypothyroidism, unspecified; M35.00 Sjogren syndrome, unspecified; G43.909 Migraine, unspecified, not intractable, without status migrainosus; Z79.82 Long term (current) use of aspirin; Z79.899 Other long term (current) drug therapy; Z88.2 Allergy status to sulfonamides; Z88.5 Allergy status to narcotic agent; Z88.8 Allergy status to other drugs, medicaments and biological substances; Z91.09 Other allergy status, other than to drugs and biological substances | CPT/HCPCS: G0463 ==

== ENCOUNTER → 2017-11-12 | Outpatient (CLI) | payer BC | LOC: M PAIN 09:15 | DX: M79.1 Myalgia (principal); M96.1 Postlaminectomy syndrome, not elsewhere classified; M54.16 Radiculopathy, lumbar region; E03.9 Hypothyroidism, unspecified; G43.909 Migraine, unspecified, not intractable, without status migrainosus; M85.80 Other specified disorders of bone density and structure, unspecified site; Z79.899 Other long term (current) drug therapy; Z88.2 Allergy status to sulfonamides; Z88.5 Allergy status to narcotic agent; Z88.8 Allergy status to other drugs, medicaments and biological substances; Z91.09 Other allergy status, other than to drugs and biological substances | CPT/HCPCS: G0463 ==

== ENCOUNTER → 2017-11-21 | Outpatient (CLI) | payer BC ==
[~2017-11-21] MED LIST changes: +TRIAMCINOLONE ACETONIDE SUSP 40 MG/ML VIAL (J3301) As Ordered
== END ==
LOC: M PAIN 10:45
DX: G89.29 Other chronic pain (principal); M79.1 Myalgia; M25.511 Pain in right shoulder; M54.6 Pain in thoracic spine; M54.5 Low back pain; E03.9 Hypothyroidism, unspecified; M35.00 Sjogren syndrome, unspecified; G43.909 Migraine, unspecified, not intractable, without status migrainosus; M85.80 Other specified disorders of bone density and structure, unspecified site; Z79.82 Long term (current) use of aspirin; Z79.891 Long term (current) use of opiate analgesic; Z79.899 Other long term (current) drug therapy; Z88.2 Allergy status to sulfonamides; Z88.5 Allergy status to narcotic agent; Z88.8 Allergy status to other drugs, medicaments and biological substances; Z91.09 Other allergy status, other than to drugs and biological substances
CPT/HCPCS: J3301

== ENCOUNTER → 2017-11-28 | Outpatient (CLI) | payer BC | LOC: M WHC 13:56 | DX: Z12.31 Encounter for screening mammogram for malignant neoplasm of breast (principal); E55.9 Vitamin D deficiency, unspecified; M81.0 Age-related osteoporosis without current pathological fracture; M85.851 Other specified disorders of bone density and structure, right thigh; M85.852 Other specified disorders of bone density and structure, left thigh; M85.88 Other specified disorders of bone density and structure, other site | CPT/HCPCS: 77067 ==

== ENCOUNTER → 2017-12-16 | Outpatient (CLI) | payer BC | LOC: M PAIN 09:30 | DX: M79.1 Myalgia (principal); M96.1 Postlaminectomy syndrome, not elsewhere classified; E03.9 Hypothyroidism, unspecified; M35.00 Sjogren syndrome, unspecified; G43.909 Migraine, unspecified, not intractable, without status migrainosus; M85.80 Other specified disorders of bone density and structure, unspecified site; Z79.82 Long term (current) use of aspirin; Z79.899 Other long term (current) drug therapy; Z88.2 Allergy status to sulfonamides; Z88.5 Allergy status to narcotic agent; Z88.8 Allergy status to other drugs, medicaments and biological substances; Z91.09 Other allergy status, other than to drugs and biological substances | CPT/HCPCS: G0463 ==

== ENCOUNTER → 2018-02-17 | Outpatient (REF) | payer BC ==
[2018-02-17 17:43] LABS: INR 1.02; PROTHROMBIN TIME 13.5 SECONDS (12.1-14.4)
[2018-02-17 17:44] LABS: PARTIAL THROMBOPLASTIN TIME 29.9 SECONDS (25.4-37.6)
== END ==
LOC: M LAB REF 16:24
DX: D69.2 Other nonthrombocytopenic purpura (principal)
CPT/HCPCS: 85610

== ENCOUNTER → 2018-03-18 | Outpatient (CLI) | payer BC | LOC: M PAIN 09:00 | DX: M96.1 Postlaminectomy syndrome, not elsewhere classified (principal); M79.7 Fibromyalgia; E03.9 Hypothyroidism, unspecified; M35.00 Sjogren syndrome, unspecified; G43.909 Migraine, unspecified, not intractable, without status migrainosus; M81.8 Other osteoporosis without current pathological fracture; L40.9 Psoriasis, unspecified; Z79.82 Long term (current) use of aspirin; Z79.899 Other long term (current) drug therapy; Z88.2 Allergy status to sulfonamides; Z88.5 Allergy status to narcotic agent; Z88.8 Allergy status to other drugs, medicaments and biological substances; Z91.09 Other allergy status, other than to drugs and biological substances | CPT/HCPCS: G0463 ==

== ENCOUNTER → 2018-09-14 | Outpatient (CLI) | payer BC ==
[~2018-09-14] MED LIST changes: +ARMO90TA OR; +BENT10CA PO; -BUPIVACAINE HCL 0.25% 10 ML VIAL As Ordered; -BUPIVACAINE HCL 0.25% 30 ML VIAL As Ordered; +CALC12504 PO; +FASTIN PO; +FIORICET OR; +FISHCAP OR; +GLYC2TAB18 PO; +GREEN TEA OR; +GREEPOW2 XX; +HYDR200T3 PO; +IBUP-1114 PO; +IMIT4KIT SC; +IMIT50TA PO; +IRON325T PO; +KLOR10TA OR; +LIDO5DIS EXT; +MAGN250T5 PO; +MAGN500T5 PO; +MULTIVIT OR; +NEUR300C PO; +OMEP40CA2 PO; +PROB1TAB PO; +RANI15TA PO; +RESTASIS OU; +SIME80TA PO; +SKEL800T5 OR; +SOMA350T OR; +THYROID MED; -TRIAMCINOLONE ACETONIDE SUSP 40 MG/ML VIAL (J3301) As Ordered; +TYLE325T5 PO; +VALI5TAB PO; +VERA120T OR; +VICO5TAB OR; +VIT D 2000 PO; +VIT D OR; +VITA200016 PO; +VITAMIN D50000 UNT; +VITATAB11 PO; +VOLT1GEL EX; +ZANA2CAP OR; +[UNRECOGNIZED DRUG - CODE] TD; +[UNRECOGNIZED DRUG - OTHER]; +[UNRECOGNIZED DRUG - OTHER]; +[UNRECOGNIZED DRUG - REMARK]; +eye drops OU; +plaquinel PO; +viscous lidocaine SSP
--- NOTE | 2018-09-16 01:41 | ECWPNPC ---
PATIENT NAME: FRANCK CROW : 1965 GENDER: FEMALE VISIT DATE: 09/14/2018 DISCHARGE DATE: 09/14/18 1011 VISIT LOCKED DATE TIME: PHYSICIAN: HAILE DAVIS RESOURCE: HAILE DAVIS REASON FOR APPOINTMENT 1. BACK/NECK HISTORY OF PRESENT ILLNESS HISTORY OF PRESENT ILLNESS: PAIN THE PATIENT DESCRIBES THE PAIN... SEVERITY - PAIN SCORE OF4/10 52 YR OLD FEMALE HERE FOR F/U ON CHONIC NECK, UPPER AND LOWER BACK PAIN. SHE IS UNDER CARE OF DR JAMIL, NEUROLOGY AND RECEIVES OCCIPITAL BLOCKS FOR PAIN AND MIGRAINES. SHE IS DUE TO HAVE CARPAAL TUNNEL SURGERY ON 12/23/18. SHE WAS ADVISED HAVE CERVICAL MRI BY [facility], BUT PATIENT SAYS SHE PREFERS TO WAIT AFTER HER SURGERY. FALL RISK SCREENING: SCREENING :NO FALLS REPORTED IN THE LAST YEAR CURRENT MEDICATIONS TAKING BENTYL 10 MG CAPSULE 1 CAPSULE ORALLY ONCE DAILY NEEDED, NOTES: NONE LATELY TAKING THYROID 60 MG TABLET 1 TABLET ORALLY ONCE A DAY TAKING EYE DROPS SOLUTION 1 DROP EACH EYE OPHTHALMIC DIRECTED TAKING VITAMIN D 5000 UNIT CAPSULE 1 TABLET ORALLY DAILY TAKING SUCRALFATE 1 GM TABLET 1 TABLET ON AN EMPTY STOMACH ORALLY FOUR TIMES DAILY TAKING SUMATRIPTAN SUCCINATE REFILL 4 MG/0.5ML SOLUTION CARTRIDGE DIRECTED SUBCUTANEOUS DIRECTED - FOR TREATMENT OF MAX 9 HEADACHES PER MONTH TAKING THYROID 15 MG TABLET 1 TABLET ON AN EMPTY STOMACH ORALLY ONCE A DAY, NOTES: TAKE WITH THE 60MG FOR TOTAL OF 75MG TAKING ASPIR-81 81 MG TABLET DELAYED RELEASE 1 TABLET ORALLY ONCE A DAY TAKING GABAPENTIN 100 MG CAPSULE 1 - 2 CAPSULE ORALLY BEFORE BEDTIME TAKING CALCIUM 500 MG TABLET 2 TABS ORALLY TWICE DAILY TAKING NORCO 7.5-325 MG TABLET 1 TABLET NEEDED ORALLY EVERY 6 HRS PRN PAIN MDD 3 TAKING OTEZLA 30 MG TABLET 1 TABLET ORALLY TWICE A DAY TAKING AIMOVIG 70 MG/ML SOLUTION AUTO-INJECTOR 1 ML SUBCUTANEOUS TAKING LIDOCAINE VISCOUS 2 % SOLUTION DIRECTED MOUTH/THROAT APPLY WITH SWAB TO PAINFUL LESIONS IN MOUTH Q4 PRS PRN TAKING LIDOCAINE 5 % CREAM 1 APPLICATION TO AFFECTED AREA NEEDED EXTERNALLY FOUR TIMES A DAY TO NECK, BASE OF SKULL, LOW BACK PRN PAIN TAKING VALIUM 2 MG TABLET 1 TABLET NEEDED ORALLY ONCE A DAY PRN SEVERE ANXIETY/SPASM TAKING TIZANIDINE HCL 4 MG TABLET 1 TAB ORALLY THREE TIMES DAILY TAKING METHYLPHENIDATE HCL 10 MG TABLET 1 TABLET ORALLY TAKE 2 TABS EVERY MORNING AND AT 1 PM MDD=3 NOT-TAKING FOSAMAX 70 MG TABLET 1 TABLET ORALLY ONCE AWEEK NOT-TAKING CO Q-10 100 MG CAPSULE 2 CAPSULE WITH A MEAL ORALLY ONCE A DAY, NOTES: 2 WEEKS AGO NOT-TAKING EMLA 2.5 CREAM PERCENT EXTERNALLY THREE TIMES A DAY NEEDED NOT-TAKING MAGNESIUM 500 MG TABLET 1-2 TABS ORALLY ONCE A DAY NOT-TAKING PROBIOTIC CAPSULE ORALLY BID NOT-TAKING VITAMIN B COMPLEX 1000 MG TABLET ORALLY DAILY DISCONTINUED DICLOFENAC EPOLAMINE 1.3 % PATCH 1 PATCH TO SKIN TRANSDERMAL QID - APPLY 4 GM TO NECK/SHOULDERS AND LOW BACK MEDICATION LIST REVIEWED AND RECONCILED WITH THE PATIENT PAST MEDICAL HISTORY HYPOTHYROIDISM SJOGRENS FIBROMYALGIA MIGARINES ENDOMETREOISIS POLYCYSTIC OVARY DISEASE IBS DDD OSTEOPOROSIS TIGGER POINT INJECTIONS RIGHT EYE VITREOS PROBLEM PSORASIS ALLERGIES FLECTOR: RASH GABAPENTIN: MIGRANE TRAMADOL: MIGRANE TOPIRAMATE: PANIC ATTACKS DULOXETINE HCL: MIGRANE SULFA (FOR ALLERGY USE ONLY): NAUSEA/ VOMITING PREGABALIN: WEIGHT GAIN TAPE: RASH FOSAMAX: EXTREME BONE PAIN - SIDE EFFECTS SURGICAL HISTORY HYSTERECTOMY 1998 7 LAPAROSCOPY AND WEDGE RESECTION OF OVARIES ONE ALMOST EVERY YEAR UNTIL HYSTER 1983 LUMBAR LAMINECTOMY & DISCECTOMY L5-S1&2 2015 SKIN CANCER REMOVAL 2006 GANGLION CYST REMOVAL 2003 C-SECTIONS 1991&1995 KIDNEY SURGERY AGE 20 FAMILY HISTORY FATHER: ALIVE 78 YRS, DIAGNOSED WITH OTHER MOTHER: 68 YRS, HYPERTENSION, HEART DISEASE SIBLINGS: ALIVE 51 YRS, OTHER 1 BROTHER(S) , 1 SISTER(S) . 1 SON(S) , 1 DAUGHTER(S) - HEALTHY. SOCIAL HISTORY GENERAL: TOBACCO USE ARE YOU A: NONSMOKER . ALCOHOL SCREENING DID YOU HAVE A DRINK CONTAINING ALCOHOL IN THE PAST YEAR?NO POINTS0 INTERPRETATIONNEGATIVE RECREATIONAL DRUG USE DRUG USE?NO CAFFEINE CAFFEINE USE?YES HOW OFTEN AND HOW MUCH? 2 CUPS DAILY SEXUAL HX HAD SEX IN THE LAST 12 MONTHS (VAGINAL, ORAL, OR ANAL)?NO HAVE YOU EVER HAD AN STD?NO TAOISM NO PROTESTANT BELIEFS THAT WOULD IMPACT HEALTH CARE. LANGUAGE FRISIAN. LEARNING BARRIERS / SPECIAL NEEDS ORIENTED TO PLAN OF CARE: PATIENT, PAIN MANAGEMENT PATIENT, ORIENTED TO PLAN OF CARE: PATIENT, PAIN MANAGEMENT PATIENT. OCCUPATION: UNEMPLOYED. EXERCISE: WALKS. MARITAL STATUS: . NEW PATIENT PAIN DIARY TODAY'S VISIT NOTES, FROM 0-10, WHAT LEVEL IS YOUR PAIN TODAY? 0. PAIN CLINIC PFS, CLERGY, PUBLIC HEALTH REFERRALS PFS REFERRAL NEEDED?NO CLERGY REFERRAL NEEDED?NO PUBLIC HEALTH REFERRAL NEEDED?NO WAS THE PROVIDER NOTIFIED OF ANY PERTINENT INFO?NO HAS THE PATIENT BEEN EDUCATED REGARDING HIS/HER PLAN OF CARE?YES HAS THE PATIENT BEEN EDUCATED REGARDING PAIN, THE RISK FOR PAIN, THE IMPORTANCE OF EFFECTIVE PAIN MANAGEMENT, AND THE PAIN ASSESSMENT PROCESS?YES ADVANCE DIRECTIVE ADVANCE DIRECTIVE DISCUSSED WITH PATIENT:YES DECLINED HOSPITALIZATION/MAJOR DIAGNOSTIC PROCEDURE SAME ABOVE REVIEW OF SYSTEMS REVIEWED BY: PROVIDER: BRUCE Reese CONSTITUTIONAL: ANY CHANGE IN YOUR MEDICAL CONDITION? NO . CHILLS NO . FEVER NO . INFECTION: DO YOU HAVE NEW INFECTIONS? YES, SINUSITIS, ABX GOING TO START TODAY . DO YOU HAVE HISTORY OF MRSA? NO . MUSCULOSKELETAL: ANY NEW PATTERNS OF PAIN OR NUMBNESS? NO . GASTROENTEROLOGY: ANY NEW CHANGE IN BOWEL CONTROL? NO . GENITOURINARY: ANY NEW CHANGE IN BLADDER CONTROL? NO . IS THERE A CHANCE YOU COULD BE ? NO . HEMATOLOGY/LYMPH: DO YOU TAKE ANY BLOOD THINNERS? (FOR EXAMPLE- COUMADIN, PLAVIX, AGGRENOX, PLATEL, PRADAXA, OR XARELTO) NO . WHEN WAS YOUR LAST DOSE? DATE: TIME: . NEUROLOGY: HAVE YOU FALLEN IN THE PAST 12 MONTHS? YES, PRIOR TO LAST VISIT . ANY NEW EXTREMITY NUMBNESS OR WEAKNESS? YES, LEFT ARM NUMBNESS AND COLD SENSATION . CARDIOLOGY: DO YOU HAVE A PACEMAKER OR DEFIBRILLATOR? NO . RESPIRATORY: HAVE YOU BEEN SICK IN THE PAST WEEK? YES, SINUSITIS TX'D W ABX START TODAY . FEVER NO . FLU LIKE SYMPTOMS? NO . COUGH NO . INTEGUMENTARY: DO YOU HAVE ANY RASHES OR OPEN SORES? NO . ALLERGIC/IMMUNO: ARE YOU ALLERGIC TO IV DYE? NO . ANY NEW ALLERGIES? NO . PSYCHIATRIC: DO YOU HAVE THOUGHTS OF HURTING YOURSELF OR SOMEONE ELSE? NO . ARE YOU ABUSED, NEGLECTED, OR IN AN UNSAFE ENVIRONMENT? NO . ENDOCRINOLOGY: ARE YOU DIABETIC? NO . OTHER: DO YOU NEED ANY PRESCRIPTIONS? YES, TIZANIDINE, VICODIN . IF YES, PLEASE LIST: ____ . ANY NEW PROBLEMS WITH YOUR MEDICATIONS? NO . WHEN DID YOU LAST EAT? ____ . WHEN DID YOU LAST DRINK? ____ . WHAT DID YOU LAST DRINK? ____ . NAME OF PERSON DRIVING YOU HOME? ____ . DO YOU HAVE ANY OTHER QUESTIONS OR CONCERNS NO . VITAL SIGNS WT 134.8 LBS, HT 61 IN, BMI 25.47 INDEX, BP 129/70 MM HG, HR 99 /MIN, RR 16 /MIN, TEMP 99.0 F, OXYGEN SAT % 99%, NA INITIALS 09:36, REVIEWED BY: EM. EXAMINATION GENERAL EXAMINATION: GENERAL APPEARANCE:NO ACUTE DISTRESS, WELL NOURISHED AND HYDRATED. PSYCHAPPROPRIATE MOOD AND AFFECT . LUNGS:CLEAR TO AUSCULTATION BILATERALLY, NO WHEEZES, RHONCHI, RALES. HEART:NO MURMURS, REGULAR RATE AND RHYTHM. LUMBAR SACRAL SPINE MUSCLE STRENGTH TESTING 5/5 BILATERAL, PALPATION: NEGATIVE FOR PAIN OVER L/S SPINE. NEGATIVE FOR PAIN OVER L/S PARSPINALS SLR NEG BILATERAL REFLEXES 2+. CERVICAL NEGATIVE FOR PAIN WITH PALPATION OF CERVICAL SPINE. NEGATIVE FOR PAIN WITH PALPATION OF CERVICAL PARASPINALS. POSITIVE FOR PAIN WITH PALPATION OF TRAPEZIUS BILAT. ASSESSMENTS MYALGIA - M79.1 (PRIMARY) LUMBAR POST-LAMINECTOMY SYNDROME - M96.1 FIBROMYALGIA - M79.7 CERVICAL FACET JOINT SYNDROME - M53.82 TREATMENT MYALGIA CONTINUE METHYLPHENIDATE HCL TABLET, 10 MG, 1 TABLET, ORALLY, TAKE 2 TABS EVERY MORNING AND AT 1 PM MDD=3, 30 DAYS, 90, REFILLS 0 CLINICAL NOTES: ISTOP REGISTRY REVIEWED AND DEMONSTRATES COMPLLIANCE. (REF #[id number] ) BRINGS IN MEDICATIONS WHICH IS APPROPRIATE FOR WHAT WAS DISPENSED. RECENT URINE TOXICOLOGY REVIEWED. NO UNAUTHORIZED MEDICATIONS. NO ILLICIT SUBSTANCES AND PRESCRIBED MEDICATIONS WERE PRESENT. , RISKS AND BENEFITS OF NARCOTIC/OPIOD MEDICATIONS WERE REVIEWED WITH PATIENT - THIS INCLUDES BUT IS NOT LIMITED TO RISK OF DEPENDANCE/DEVELOPMENT OF ADDICTION, MOOD DISTURBANCE AND DEPRESSION, OSTEOPOROSIS, HORMONAL AND LABIDAL CHANGES, RESPIRATORY DEPRESSION AND . PATIENT IS ADVISED NOT TO DRIVE OR DRINK ALCOHOL WHILE ON THESE MEDICATIONSURINE TOX TODAY. LUMBAR POST-LAMINECTOMY SYNDROME CONTINUE TIZANIDINE HCL TABLET, 4 MG, 1 TAB, ORALLY, THREE TIMES DAILY, 30 DAYS, 90, REFILLS 0 CONTINUE NORCO TABLET, 7.5-325 MG, 1 TABLET NEEDED, ORALLY, EVERY 6 HRS PRN PAIN MDD 3, 30 DAYS, 90, REFILLS 0 PROCEDURE CODES FA211 ESTABILISHED PATIENT [facility] CHARGE DISPOSITION & COMMUNICATION FOLLOW UP 3 MONTHS ELECTRONICALLY SIGNED BY GIOVANI RUBIO ON 09/15/2018 AT 08:23 AM EDT DISCLAIMER : THIS IS A VISIT SUMMARY EXTRACTED FROM THE [email or web address] CHART. IT IS NOT A COPY OF THE [email or web address] PROGRESS NOTE. ANTONELLA
== END ==
LOC: M PAIN 09:30
PROVIDERS: ATTEND Nurse Practitioner Family
DX: M79.18 Myalgia, other site (principal); M96.1 Postlaminectomy syndrome, not elsewhere classified; M79.7 Fibromyalgia; M53.82 Other specified dorsopathies, cervical region; E03.9 Hypothyroidism, unspecified; G43.909 Migraine, unspecified, not intractable, without status migrainosus; M81.0 Age-related osteoporosis without current pathological fracture; Z88.8 Allergy status to other drugs, medicaments and biological substances; Z88.2 Allergy status to sulfonamides; Z91.09 Other allergy status, other than to drugs and biological substances; Z79.82 Long term (current) use of aspirin; Z79.899 Other long term (current) drug therapy

== ENCOUNTER → 2018-12-29 | Outpatient (CLI) | payer BC ==
[~2018-12-29] MED LIST changes: -CALC12504 PO; +CALC500T61 PO
--- NOTE | 2018-12-31 00:17 | ECWPNPC ---
PATIENT NAME: FRANCK CROW : 1965 GENDER: FEMALE VISIT DATE: 12/29/2018 DISCHARGE DATE: 12/29/18 1059 VISIT LOCKED DATE TIME: PHYSICIAN: RALF CARTER RESOURCE: RALF CARTER REASON FOR APPOINTMENT 1. BACK/NECK HISTORY OF PRESENT ILLNESS HISTORY OF PRESENT ILLNESS: PAIN THE PATIENT DESCRIBES THE PAIN... 53 YEAR OLD FEMALE IN FOR CHRONIC PAIN FOLLOW UP. SHE CURRENTLY RATES HER PAIN AT A 5/10 AND STATES THIS IS TOLERABLE FOR HER. SHE DENIES MED SIDE EFFECTS AND FEELS THE MEDICATIONS ARE WORKING WELL FOR HER. SHE DESCRIBES THE PAIN ACHING, BURNING, SORE, AND TENDER. SHE WOULD LIKE TO DISCUSS A NEW MIGRAINE MEDICATION AND HAS REQUESTED INFO ON BACK STRETCHES SHE CAN DO AT HOME. FALL RISK SCREENING: SCREENING :NO FALLS REPORTED IN THE LAST YEAR CURRENT MEDICATIONS TAKING THYROID 60 MG TABLET 1 TABLET ORALLY ONCE A DAY TAKING THYROID 15 MG TABLET 1 TABLET ON AN EMPTY STOMACH ORALLY ONCE A DAY, NOTES: TAKE WITH THE 60MG FOR TOTAL OF 75MG TAKING EYE DROPS SOLUTION 1 DROP EACH EYE OPHTHALMIC DIRECTED TAKING CALCIUM 500 MG TABLET 2 TABS ORALLY TWICE DAILY TAKING OTEZLA 30 MG TABLET 1 TABLET ORALLY TWICE A DAY TAKING SUMATRIPTAN SUCCINATE REFILL 4 MG/0.5ML SOLUTION CARTRIDGE DIRECTED SUBCUTANEOUS DIRECTED - FOR TREATMENT OF MAX 9 HEADACHES PER MONTH, NOTES: PRN TAKING ASPIR-81 81 MG TABLET DELAYED RELEASE 1 TABLET ORALLY ONCE A DAY, NOTES: PRN TAKING NORCO 7.5-325 MG TABLET 1 TABLET NEEDED ORALLY EVERY 6 HRS PRN PAIN MDD 3, NOTES: PRN TAKING TIZANIDINE HCL 4 MG TABLET 1 TAB ORALLY THREE TIMES DAILY TAKING METHYLPHENIDATE HCL 10 MG TABLET 1 TABLET ORALLY TAKE 2 TABS EVERY MORNING AND AT 1 PM MDD=3, NOTES: PRN NOT-TAKING VITAMIN D 5000 UNIT CAPSULE 1 TABLET ORALLY DAILY NOT-TAKING AIMOVIG 70 MG/ML SOLUTION AUTO-INJECTOR 1 ML SUBCUTANEOUS NOT-TAKING BENTYL 10 MG CAPSULE 1 CAPSULE ORALLY ONCE DAILY NEEDED, NOTES: PRN NOT-TAKING SUCRALFATE 1 GM TABLET 1 TABLET ON AN EMPTY STOMACH ORALLY FOUR TIMES DAILY, NOTES: PRN NOT-TAKING LIDOCAINE VISCOUS 2 % SOLUTION DIRECTED MOUTH/THROAT APPLY WITH SWAB TO PAINFUL LESIONS IN MOUTH Q4 PRS PRN, NOTES: PRN NOT-TAKING LIDOCAINE 5 % CREAM 1 APPLICATION TO AFFECTED AREA NEEDED EXTERNALLY FOUR TIMES A DAY TO NECK, BASE OF SKULL, LOW BACK PRN PAIN, NOTES: PRN NOT-TAKING VALIUM 2 MG TABLET 1 TABLET NEEDED ORALLY ONCE A DAY PRN SEVERE ANXIETY/SPASM, NOTES: PRN NOT-TAKING GABAPENTIN 100 MG CAPSULE 1 - 2 CAPSULE ORALLY BEFORE BEDTIME NOT-TAKING FOSAMAX 70 MG TABLET 1 TABLET ORALLY ONCE AWEEK NOT-TAKING CO Q-10 100 MG CAPSULE 2 CAPSULE WITH A MEAL ORALLY ONCE A DAY, NOTES: 2 WEEKS AGO NOT-TAKING EMLA 2.5 CREAM PERCENT EXTERNALLY THREE TIMES A DAY NEEDED NOT-TAKING MAGNESIUM 500 MG TABLET 1-2 TABS ORALLY ONCE A DAY NOT-TAKING PROBIOTIC CAPSULE ORALLY BID NOT-TAKING VITAMIN B COMPLEX 1000 MG TABLET ORALLY DAILY MEDICATION LIST REVIEWED AND RECONCILED WITH THE PATIENT PAST MEDICAL HISTORY HYPOTHYROIDISM SJOGRENS FIBROMYALGIA MIGARINES ENDOMETREOISIS POLYCYSTIC OVARY DISEASE IBS DDD OSTEOPOROSIS TIGGER POINT INJECTIONS RIGHT EYE VITREOS PROBLEM PSORASIS ALLERGIES FLECTOR: RASH GABAPENTIN: MIGRANE TRAMADOL: MIGRANE TOPIRAMATE: PANIC ATTACKS DULOXETINE HCL: MIGRANE SULFA (FOR ALLERGY USE ONLY): NAUSEA/ VOMITING PREGABALIN: WEIGHT GAIN TAPE: RASH FOSAMAX: EXTREME BONE PAIN - SIDE EFFECTS SURGICAL HISTORY HYSTERECTOMY 1998 7 LAPAROSCOPY AND WEDGE RESECTION OF OVARIES ONE ALMOST EVERY YEAR UNTIL HYSTER 1982 LUMBAR LAMINECTOMY & DISCECTOMY L5-S1&2 2015 SKIN CANCER REMOVAL 2006 GANGLION CYST REMOVAL 2003 C-SECTIONS 1991&1995 KIDNEY SURGERY AGE 20 RIGHT HAND CARPAL TUNNEL SURGERY 09/2018 FAMILY HISTORY FATHER: ALIVE 78 YRS, DIAGNOSED WITH OTHER MOTHER: 68 YRS, HYPERTENSION, HEART DISEASE SIBLINGS: ALIVE 51 YRS, OTHER 1 BROTHER(S) , 1 SISTER(S) . 1 SON(S) , 1 DAUGHTER(S) - HEALTHY. DENIES FAMILY HX OF MELANOMA AND PANCREATIC CANCER. SOCIAL HISTORY GENERAL: TOBACCO USE ARE YOU A: NONSMOKER. LANGUAGE SLOVENIAN. NEW PATIENT PAIN DIARY TODAY'S VISIT NOTES, FROM 0-10, WHAT LEVEL IS YOUR PAIN TODAY? 0. RECREATIONAL DRUG USE DRUG USE?NO EXERCISE: WALKS. LEARNING BARRIERS / SPECIAL NEEDS BARRIERS TO LEARNING?NO HEARING IMPAIRED?NO VISION IMPAIRED?YES :CORRECTIVE LENSES COGNITIVELY IMPAIRED?NO READINESS TO LEARN?YES LEARNING PREFERENCES?NO LEARNING CAPABILITIES PRESENT?YES EMOTIONAL BARRIERS?NO SPECIAL DEVICES?NO PSYCH SPECIALIST NEEDED?NO PAIN CLINIC PFS, CLERGY, PUBLIC HEALTH REFERRALS PFS REFERRAL NEEDED?NO CLERGY REFERRAL NEEDED?NO PUBLIC HEALTH REFERRAL NEEDED?NO WAS THE PROVIDER NOTIFIED OF ANY PERTINENT INFO?NO HAS THE PATIENT BEEN EDUCATED REGARDING HIS/HER PLAN OF CARE?YES HAS THE PATIENT BEEN EDUCATED REGARDING PAIN, THE RISK FOR PAIN, THE IMPORTANCE OF EFFECTIVE PAIN MANAGEMENT, AND THE PAIN ASSESSMENT PROCESS?YES CAFFEINE CAFFEINE USE?YES HOW OFTEN AND HOW MUCH? 2 CUPS DAILY ADVANCE DIRECTIVE ADVANCE DIRECTIVE DISCUSSED WITH PATIENT:YES DECLINED HOLINESS NO BAPTIST BELIEFS THAT WOULD IMPACT HEALTH CARE. MARITAL STATUS: . ALCOHOL SCREENING DID YOU HAVE A DRINK CONTAINING ALCOHOL IN THE PAST YEAR?NO POINTS0 INTERPRETATIONNEGATIVE OCCUPATION: UNEMPLOYED. SEXUAL HX HAD SEX IN THE LAST 12 MONTHS (VAGINAL, ORAL, OR ANAL)?NO HAVE YOU EVER HAD AN STD?NO HOSPITALIZATION/MAJOR DIAGNOSTIC PROCEDURE SAME ABOVE REVIEW OF SYSTEMS REVIEWED BY: PROVIDER: EVANGELINA CARTER PRODUCE FIELD MERCHANDISER-C . CONSTITUTIONAL: ANY CHANGE IN YOUR MEDICAL CONDITION? NO . CHILLS NO . FEVER NO . INFECTION: DO YOU HAVE NEW INFECTIONS? NO . DO YOU HAVE HISTORY OF MRSA? NO . MUSCULOSKELETAL: ANY NEW PATTERNS OF PAIN OR NUMBNESS? YES, PAIN IN LEFT HIP AND MIGRAINES . GASTROENTEROLOGY: ANY NEW CHANGE IN BOWEL CONTROL? NO . GENITOURINARY: ANY NEW CHANGE IN BLADDER CONTROL? NO . IS THERE A CHANCE YOU COULD BE ? NO . HEMATOLOGY/LYMPH: DO YOU TAKE ANY BLOOD THINNERS? (FOR EXAMPLE- COUMADIN, PLAVIX, AGGRENOX, PLATEL, PRADAXA, OR XARELTO) NO . WHEN WAS YOUR LAST DOSE? DATE: TIME: . NEUROLOGY: HAVE YOU FALLEN IN THE PAST 12 MONTHS? YES, PRIOR TO LAST VISIT . ANY NEW EXTREMITY NUMBNESS OR WEAKNESS? NO . CARDIOLOGY: DO YOU HAVE A PACEMAKER OR DEFIBRILLATOR? NO . RESPIRATORY: HAVE YOU BEEN SICK IN THE PAST WEEK? NO . FEVER NO . FLU LIKE SYMPTOMS? NO . COUGH NO . INTEGUMENTARY: DO YOU HAVE ANY RASHES OR OPEN SORES? NO . ALLERGIC/IMMUNO: ARE YOU ALLERGIC TO IV DYE? NO . ANY NEW ALLERGIES? NO . PSYCHIATRIC: DO YOU HAVE THOUGHTS OF HURTING YOURSELF OR SOMEONE ELSE? NO . ARE YOU ABUSED, NEGLECTED, OR IN AN UNSAFE ENVIRONMENT? NO . ENDOCRINOLOGY: ARE YOU DIABETIC? NO . OTHER: DO YOU NEED ANY PRESCRIPTIONS? YES, TIZANIDINE, VICODIN, METHYLPHENIDINE . IF YES, PLEASE LIST: ____ . ANY NEW PROBLEMS WITH YOUR MEDICATIONS? NO . WHEN DID YOU LAST EAT? ____ . WHEN DID YOU LAST DRINK? ____ . WHAT DID YOU LAST DRINK? ____ . NAME OF PERSON DRIVING YOU HOME? ____ . DO YOU HAVE ANY OTHER QUESTIONS OR CONCERNS NO . VITAL SIGNS WT 134 LBS, HT 61 IN, BMI 25.32 INDEX, BP 142/78 MM HG, HR 79 /MIN, RR 16 /MIN, TEMP 97.0 F, OXYGEN SAT % 99%, NA INITIALS AW 1019, REVIEWED BY: EM. EXAMINATION GENERAL EXAMINATION: GENERALNO ACUTE DISTRESS, WELL NOURISHED AND HYDRATED. PSYCHAPPROPRIATE MOOD AND AFFECT . LUNGS:CLEAR TO AUSCULTATION BILATERALLY, NO WHEEZES, RHONCHI, RALES. HEART:NO MURMURS, REGULAR RATE AND RHYTHM. ASSESSMENTS LUMBAR POST-LAMINECTOMY SYNDROME - M96.1 (PRIMARY) FIBROMYALGIA - M79.7 MYALGIA - M79.1 TREATMENT LUMBAR POST-LAMINECTOMY SYNDROME REFILL NORCO TABLET, 7.5-325 MG, 1 TABLET NEEDED, ORALLY, EVERY 6 HRS PRN PAIN MDD 3, 30 DAYS, 90, REFILLS 0, NOTES: PRN REFILL TIZANIDINE HCL TABLET, 4 MG, 1 TAB, ORALLY, THREE TIMES DAILY, 30 DAYS, 90, REFILLS 0 CLINICAL NOTES: 53 YEAR OLD FEMALE IN FOR CHRONIC PAIN FOLLOW UP. GIVEN PRESENTING SYMPTOMS AND RESULTS OF PHYSICAL EXAMINATION RECOMMENDED CONTINUATION OF CURRENT MEDICATION REGIMEN WITH THE EXCLUSION OF POTENTIALLY CHANGING HER MIGRAINE MEDICATION (PT TO FIND OUT NAME OF MEDICATION). FURTHER RECOMMENDED FOLLOW UP IN 2 MONTHS. DISCUSSED METHYLPHENIDATE WITH PATIENT AND RECOMMENDED TRANSFERING PRESCIBING OF SAID MEDICATION TO PCP. SHE WAS GIVEN INFORMATION REGARDING BACK STRETCHES. PATIENT HAS EXPRESSED UNDERSTANDING OF AND WAS IN AGREEMENT WITH TX PLAN. GIVEN TIME TO ASK QUESTIONS AND EXPRESS CONCERNS. , ISTOP REGISTRY REVIEWED AND DEMONSTRATES COMPLLIANCE. (REF # [id number] ) BRINGS IN MEDICATIONS WHICH IS APPROPRIATE FOR WHAT WAS DISPENSED. RECENT URINE TOXICOLOGY REVIEWED. NO UNAUTHORIZED MEDICATIONS. NO ILLICIT SUBSTANCES AND PRESCRIBED MEDICATIONS WERE PRESENT. , RISKS AND BENEFITS OF NARCOTIC/OPIOD MEDICATIONS WERE REVIEWED WITH PATIENT - THIS INCLUDES BUT IS NOT LIMITED TO RISK OF DEPENDANCE/DEVELOPMENT OF ADDICTION, MOOD DISTURBANCE AND DEPRESSION, OSTEOPOROSIS, HORMONAL AND LABIDAL CHANGES, RESPIRATORY DEPRESSION AND . PATIENT IS ADVISED NOT TO DRIVE OR DRINK ALCOHOL WHILE ON THESE MEDICATIONS. MYALGIA REFILL METHYLPHENIDATE HCL TABLET, 10 MG, 1 TABLET, ORALLY, TAKE 2 TABS EVERY MORNING AND AT 1 PM MDD=3, 7 DAYS, 21, REFILLS 0, NOTES: PRN OTHERS NOTES: LOW BACK PAIN MATERIAL WAS PRINTED,BRIDGE MATERIAL WAS PRINTED,BRIDGE MATERIAL WAS PRINTED,BRIDGE MATERIAL WAS PRINTED,BRIDGE MATERIAL WAS PRINTED,BRIDGE MATERIAL WAS PRINTED,BRIDGE MATERIAL WAS PRINTED. PROCEDURE CODES FA211 ESTABILISHED PATIENT [facility] CHARGE DISPOSITION & COMMUNICATION FOLLOW UP 2 MONTHS (REASON: CHRONIC PAIN ) ELECTRONICALLY SIGNED BY GIOVANI ROJO ON 12/30/2018 AT 10:04 AM EDT DISCLAIMER : THIS IS A VISIT SUMMARY EXTRACTED FROM THE [employer]CLINICALWORKS CHART. IT IS NOT A COPY OF THE [employer]CL[employer]ICAL[employer]KS PROGRESS NOTE. ANTONELLA
== END ==
LOC: M PAIN 10:15
PROVIDERS: ATTEND Family Medicine
DX: M96.1 Postlaminectomy syndrome, not elsewhere classified (principal); M79.7 Fibromyalgia; M79.18 Myalgia, other site; E03.9 Hypothyroidism, unspecified; M35.00 Sjogren syndrome, unspecified; G43.909 Migraine, unspecified, not intractable, without status migrainosus; K58.9 Irritable bowel syndrome, unspecified; M81.0 Age-related osteoporosis without current pathological fracture; L40.9 Psoriasis, unspecified; Z90.710 Acquired absence of both cervix and uterus; Z85.828 Personal history of other malignant neoplasm of skin; Z79.82 Long term (current) use of aspirin; Z79.891 Long term (current) use of opiate analgesic; Z79.899 Other long term (current) drug therapy; Z88.5 Allergy status to narcotic agent; Z88.2 Allergy status to sulfonamides; Z88.8 Allergy status to other drugs, medicaments and biological substances; Z91.048 Other nonmedicinal substance allergy status

== ENCOUNTER → 2019-03-01 | Outpatient (CLI) | payer BC ==
--- NOTE | 2019-03-03 02:18 | ECWPNPC ---
PATIENT NAME: FRANCK CROW : 1965 GENDER: FEMALE VISIT DATE: 03/01/2019 DISCHARGE DATE: 03/01/19 0946 VISIT LOCKED DATE TIME: PHYSICIAN: RALF CARTER RESOURCE: RALF CARTER REASON FOR APPOINTMENT 1. CHRONIC PAIN HISTORY OF PRESENT ILLNESS HISTORY OF PRESENT ILLNESS: PAIN THE PATIENT DESCRIBES THE PAIN... 53-YEAR-OLD FEMALE IN FOR CHRONIC PAIN FOLLOW-UP. SHE RATES HER PAIN AT A 4/10 CURRENTLY AND DESCRIBES IT ACHING, SHARP, BURNING, SORE, AND TENDER. SHE WOULD LIKE TO DISCUSS POTENTIALLY COMING OFF OF HER HYDROCODONE AND STARTING MEDICATION SUCH MELOXICAM AND/OR DICLOFENAC. SHE DOES ADMIT TO A PERIOD THIS SUMMER WHERE THE BOTTOMS OF HER FEET WERE BURNING SHE SAYS THIS EVENTUALLY LED TO THE LOSS OF HER TOENAILS BILATERALLY. SHE FURTHER STATES THAT THE PAIN HAS LESSENED HOWEVER SHE DOES EXPERIENCE IT INTERMITTENTLY. FALL RISK SCREENING: SCREENING :NO FALLS REPORTED IN THE LAST YEAR CURRENT MEDICATIONS TAKING THYROID 60 MG TABLET 1 TABLET ORALLY ONCE A DAY TAKING THYROID 15 MG TABLET 1 TABLET ON AN EMPTY STOMACH ORALLY ONCE A DAY, NOTES: TAKE WITH THE 60MG FOR TOTAL OF 75MG TAKING EYE DROPS SOLUTION 1 DROP EACH EYE OPHTHALMIC DIRECTED TAKING CALCIUM 500 MG TABLET 2 TABS ORALLY TWICE DAILY TAKING OTEZLA 30 MG TABLET 1 TABLET ORALLY TWICE A DAY TAKING SUMATRIPTAN SUCCINATE REFILL 4 MG/0.5ML SOLUTION CARTRIDGE DIRECTED SUBCUTANEOUS DIRECTED - FOR TREATMENT OF MAX 9 HEADACHES PER MONTH, NOTES: PRN TAKING ASPIR-81 81 MG TABLET DELAYED RELEASE 1 TABLET ORALLY ONCE A DAY, NOTES: PRN TAKING NORCO 7.5-325 MG TABLET 1 TABLET NEEDED ORALLY EVERY 6 HRS PRN PAIN MDD 3, NOTES: PRN TAKING TIZANIDINE HCL 4 MG TABLET 1 TAB ORALLY THREE TIMES DAILY TAKING AIMOVIG 70 MG/ML SOLUTION AUTO-INJECTOR 1 ML SUBCUTANEOUS NEEDED FOR MIGRAINES NOT-TAKING VITAMIN D 5000 UNIT CAPSULE 1 TABLET ORALLY DAILY NOT-TAKING BENTYL 10 MG CAPSULE 1 CAPSULE ORALLY ONCE DAILY NEEDED, NOTES: PRN NOT-TAKING SUCRALFATE 1 GM TABLET 1 TABLET ON AN EMPTY STOMACH ORALLY FOUR TIMES DAILY, NOTES: PRN NOT-TAKING LIDOCAINE VISCOUS 2 % SOLUTION DIRECTED MOUTH/THROAT APPLY WITH SWAB TO PAINFUL LESIONS IN MOUTH Q4 PRS PRN, NOTES: PRN NOT-TAKING LIDOCAINE 5 % CREAM 1 APPLICATION TO AFFECTED AREA NEEDED EXTERNALLY FOUR TIMES A DAY TO NECK, BASE OF SKULL, LOW BACK PRN PAIN, NOTES: PRN NOT-TAKING VALIUM 2 MG TABLET 1 TABLET NEEDED ORALLY ONCE A DAY PRN SEVERE ANXIETY/SPASM, NOTES: PRN NOT-TAKING GABAPENTIN 100 MG CAPSULE 1 - 2 CAPSULE ORALLY BEFORE BEDTIME NOT-TAKING FOSAMAX 70 MG TABLET 1 TABLET ORALLY ONCE AWEEK NOT-TAKING CO Q-10 100 MG CAPSULE 2 CAPSULE WITH A MEAL ORALLY ONCE A DAY, NOTES: 2 WEEKS AGO NOT-TAKING EMLA 2.5 CREAM PERCENT EXTERNALLY THREE TIMES A DAY NEEDED NOT-TAKING MAGNESIUM 500 MG TABLET 1-2 TABS ORALLY ONCE A DAY NOT-TAKING PROBIOTIC CAPSULE ORALLY BID NOT-TAKING VITAMIN B COMPLEX 1000 MG TABLET ORALLY DAILY DISCONTINUED METHYLPHENIDATE HCL 10 MG TABLET 1 TABLET ORALLY TAKE 2 TABS EVERY MORNING AND AT 1 PM MDD=3, NOTES: PRN MEDICATION LIST REVIEWED AND RECONCILED WITH THE PATIENT PAST MEDICAL HISTORY HYPOTHYROIDISM SJOGRENS FIBROMYALGIA MIGARINES ENDOMETREOISIS POLYCYSTIC OVARY DISEASE IBS DDD OSTEOPOROSIS TIGGER POINT INJECTIONS RIGHT EYE VITREOS PROBLEM PSORASIS ALLERGIES FLECTOR: RASH GABAPENTIN: MIGRANE TRAMADOL: MIGRANE TOPIRAMATE: PANIC ATTACKS DULOXETINE HCL: MIGRANE SULFA (FOR ALLERGY USE ONLY): NAUSEA/ VOMITING PREGABALIN: WEIGHT GAIN TAPE: RASH FOSAMAX: EXTREME BONE PAIN - SIDE EFFECTS SURGICAL HISTORY HYSTERECTOMY 1998 7 LAPAROSCOPY AND WEDGE RESECTION OF OVARIES ONE ALMOST EVERY YEAR UNTIL HYSTER 1983 LUMBAR LAMINECTOMY & DISCECTOMY L5-S1&2 2015 SKIN CANCER REMOVAL 2005 GANGLION CYST REMOVAL 2002 C-SECTIONS 1991&1995 KIDNEY SURGERY AGE 20 RIGHT HAND CARPAL TUNNEL SURGERY 09/2018 FAMILY HISTORY FATHER: ALIVE 78 YRS, DIAGNOSED WITH OTHER SPECIFIED CONDITIONS INFLUENCING HEALTH STATUS MOTHER: 68 YRS, HYPERTENSION, UNSPECIFIED HEART DISEASE SIBLINGS: ALIVE 51 YRS, OTHER SPECIFIED CONDITIONS INFLUENCING HEALTH STATUS 1 BROTHER(S) , 1 SISTER(S) . 1 SON(S) , 1 DAUGHTER(S) - HEALTHY. DENIES FAMILY HX OF MELANOMA AND PANCREATIC CANCER. SOCIAL HISTORY GENERAL: TOBACCO USE ARE YOU A: NONSMOKER. LANGUAGE GERMAN. NEW PATIENT PAIN DIARY TODAY'S VISIT NOTES, FROM 0-10, WHAT LEVEL IS YOUR PAIN TODAY? 0. RECREATIONAL DRUG USE DRUG USE?NO EXERCISE: WALKS. LEARNING BARRIERS / SPECIAL NEEDS BARRIERS TO LEARNING?NO HEARING IMPAIRED?NO VISION IMPAIRED?YES COGNITIVELY IMPAIRED?NO :CORRECTIVE LENSES READINESS TO LEARN?YES LEARNING PREFERENCES?NO LEARNING CAPABILITIES PRESENT?YES EMOTIONAL BARRIERS?NO SPECIAL DEVICES?NO PAY STATION COLLECTOR NEEDED?NO PAIN CLINIC PFS, CLERGY, PUBLIC HEALTH REFERRALS PFS REFERRAL NEEDED?NO CLERGY REFERRAL NEEDED?NO PUBLIC HEALTH REFERRAL NEEDED?NO WAS THE PROVIDER NOTIFIED OF ANY PERTINENT INFO?NO HAS THE PATIENT BEEN EDUCATED REGARDING HIS/HER PLAN OF CARE?YES HAS THE PATIENT BEEN EDUCATED REGARDING PAIN, THE RISK FOR PAIN, THE IMPORTANCE OF EFFECTIVE PAIN MANAGEMENT, AND THE PAIN ASSESSMENT PROCESS?YES CAFFEINE CAFFEINE USE?YES HOW OFTEN AND HOW MUCH? 2 CUPS DAILY ADVANCE DIRECTIVE ADVANCE DIRECTIVE DISCUSSED WITH PATIENT:YES DECLINED MANDAEISM NO MOSQUE BELIEFS THAT WOULD IMPACT HEALTH CARE. MARITAL STATUS: . ALCOHOL SCREENING DID YOU HAVE A DRINK CONTAINING ALCOHOL IN THE PAST YEAR?NO POINTS0 INTERPRETATIONNEGATIVE OCCUPATION: UNEMPLOYED. SEXUAL HX HAD SEX IN THE LAST 12 MONTHS (VAGINAL, ORAL, OR ANAL)?NO HAVE YOU EVER HAD AN STD?NO HOSPITALIZATION/MAJOR DIAGNOSTIC PROCEDURE SAME ABOVE REVIEW OF SYSTEMS REVIEWED BY: PROVIDER: EVANGELINA CARTER UTILIZATION REVIEW RN-C . CONSTITUTIONAL: ANY CHANGE IN YOUR MEDICAL CONDITION? NO . CHILLS NO . FEVER NO . INFECTION: DO YOU HAVE NEW INFECTIONS? NO . DO YOU HAVE HISTORY OF MRSA? NO . MUSCULOSKELETAL: ANY NEW PATTERNS OF PAIN OR NUMBNESS? YES, LEFT SCIATICA . GASTROENTEROLOGY: ANY NEW CHANGE IN BOWEL CONTROL? NO . GENITOURINARY: ANY NEW CHANGE IN BLADDER CONTROL? NO . IS THERE A CHANCE YOU COULD BE ? NO . HEMATOLOGY/LYMPH: DO YOU TAKE ANY BLOOD THINNERS? (FOR EXAMPLE- COUMADIN, PLAVIX, AGGRENOX, PLATEL, PRADAXA, OR XARELTO) NO . WHEN WAS YOUR LAST DOSE? DATE: TIME: . NEUROLOGY: HAVE YOU FALLEN IN THE PAST 12 MONTHS? YES, PRIOR TO LAST VISIT . ANY NEW EXTREMITY NUMBNESS OR WEAKNESS? YES, LEFT LEG WEAKNESS . CARDIOLOGY: DO YOU HAVE A PACEMAKER OR DEFIBRILLATOR? NO . RESPIRATORY: HAVE YOU BEEN SICK IN THE PAST WEEK? NO . FEVER NO . FLU LIKE SYMPTOMS? NO . COUGH NO . INTEGUMENTARY: DO YOU HAVE ANY RASHES OR OPEN SORES? NO . ALLERGIC/IMMUNO: ARE YOU ALLERGIC TO IV DYE? NO . ANY NEW ALLERGIES? NO . PSYCHIATRIC: DO YOU HAVE THOUGHTS OF HURTING YOURSELF OR SOMEONE ELSE? NO . ARE YOU ABUSED, NEGLECTED, OR IN AN UNSAFE ENVIRONMENT? NO . ENDOCRINOLOGY: ARE YOU DIABETIC? NO . OTHER: DO YOU NEED ANY PRESCRIPTIONS? YES, VALIUM . IF YES, PLEASE LIST: ____ . ANY NEW PROBLEMS WITH YOUR MEDICATIONS? NO . WHEN DID YOU LAST EAT? ____ . WHEN DID YOU LAST DRINK? ____ . WHAT DID YOU LAST DRINK? ____ . NAME OF PERSON DRIVING YOU HOME? ____ . DO YOU HAVE ANY OTHER QUESTIONS OR CONCERNS YES, ALTERNATIVE PAIN MED OPTIONS, MELOXICAM OR SOMETHING . VITAL SIGNS WT 133.2 LBS, HT 61 IN, BMI 25.17 INDEX, BP 157/72 MM HG, HR 79 /MIN, RR 16 /MIN, TEMP 97.3 F, OXYGEN SAT % 98%, NA INITIALS SC 09:04. EXAMINATION GENERAL EXAMINATION: GENERALNO ACUTE DISTRESS, WELL NOURISHED AND HYDRATED. PSYCHAPPROPRIATE MOOD AND AFFECT . LUNGS:CLEAR TO AUSCULTATION BILATERALLY, NO WHEEZES, RHONCHI, RALES. HEART:NO MURMURS, REGULAR RATE AND RHYTHM. ASSESSMENTS LUMBAR POST-LAMINECTOMY SYNDROME - M96.1 (PRIMARY) FIBROMYALGIA - M79.7 TREATMENT LUMBAR POST-LAMINECTOMY SYNDROME REFILL VALIUM TABLET, 2 MG, 1 TABLET NEEDED, ORALLY, ONCE A DAY PRN SEVERE ANXIETY/SPASM, 30 DAY(S), 30, REFILLS 0, NOTES: PRN START DICLOFENAC SODIUM TABLET DELAYED RELEASE, 50 MG, 1 TABLET WITH FOOD OR MILK, ORALLY, THREE TIMES A DAY, 30 DAY(S), 90 CLINICAL NOTES: 53-YEAR-OLD FEMALE IN FOR CHRONIC PAIN FOLLOW-UP. GIVEN PRESENTING SYMPTOMS AND RESULTS PHYSICAL EXAMINATION RECOMMENDED STARTING DICLOFENAC WITH FOLLOW-UP IN ONE MONTH TO DETERMINE EFFICACY OF TREATMENT. DISCUSSED BURNING SENSATION PATIENT'S FEET AND POTENTIAL USE OF GABAPENTIN HOWEVER PATIENT DECLINED STARTING MEDICATION AT THIS TIME. RECOMMENDED CONTINUED MONITORING AND SHOULD SYMPTOMS PERSIST WE WILL DISCUSS THIS AT HER NEXT FOLLOW-UP IN ONE MONTH AND/OR IF THEY GET WORSE SHE IS TO CALL THE OFFICE. PATIENT HAS EXPRESSED UNDERSTANDING OF AND WAS IN AGREEMENT WITH TREATMENT PLAN. GIVEN TIME TO ASK QUESTIONS AND EXPRESS CONCERNS., ISTOP REGISTRY REVIEWED AND DEMONSTRATES COMPLLIANCE. (REF # [id number] ) BRINGS IN MEDICATIONS WHICH IS APPROPRIATE FOR WHAT WAS DISPENSED. RECENT URINE TOXICOLOGY REVIEWED. NO UNAUTHORIZED MEDICATIONS. NO ILLICIT SUBSTANCES AND PRESCRIBED MEDICATIONS WERE PRESENT. OTHERS NOTES: DICLOFENAC MATERIAL WAS PRINTED. PROCEDURE CODES FA211 ESTABILISHED PATIENT [facility] CHARGE DISPOSITION & COMMUNICATION FOLLOW UP 4 WEEKS (REASON: MEDICATION CHANGE ) ELECTRONICALLY SIGNED BY GIOVANI ROJO ON 03/02/2019 AT 09:15 AM EDT DISCLAIMER : THIS IS A VISIT SUMMARY EXTRACTED FROM THE ECL[employer]ICALWORKS CHART. IT IS NOT A COPY OF THE ECL[employer]KS PROGRESS NOTE. ANTONELLA
== END ==
LOC: M PAIN 09:00
PROVIDERS: ATTEND Family Medicine
DX: M96.1 Postlaminectomy syndrome, not elsewhere classified (principal); M79.7 Fibromyalgia; E03.9 Hypothyroidism, unspecified; G43.909 Migraine, unspecified, not intractable, without status migrainosus; M81.0 Age-related osteoporosis without current pathological fracture; Z88.2 Allergy status to sulfonamides; Z88.5 Allergy status to narcotic agent; Z88.8 Allergy status to other drugs, medicaments and biological substances; Z91.09 Other allergy status, other than to drugs and biological substances; Z79.82 Long term (current) use of aspirin; Z79.899 Other long term (current) drug therapy

== ENCOUNTER → 2019-03-31 | Outpatient (CLI) | payer BC ==
[~2019-03-31] MED LIST changes: -OMEP40CA2 PO; +OMEP40CA97 PO
--- NOTE | 2019-04-02 00:46 | ECWPNPC ---
PATIENT NAME: FRANCK CROW : 1965 GENDER: FEMALE VISIT DATE: 03/31/2019 DISCHARGE DATE: 03/31/19 1146 VISIT LOCKED DATE TIME: PHYSICIAN: RALF CARTER RESOURCE: RALF CARTER REASON FOR APPOINTMENT 1. MEDICATION CHANGE HISTORY OF PRESENT ILLNESS HISTORY OF PRESENT ILLNESS: PAIN THE PATIENT DESCRIBES THE PAIN... 53-YEAR-OLD FEMALE IN FOR CHRONIC PAIN FOLLOW-UP. AT LAST CLINIC VISIT SHE WAS STARTED ON DICLOFENAC AND STATES TODAY THAT THIS WAS UNHELPFUL TO HER. SHE RATES HER PAIN CURRENTLY AT A 4 OUT OF 10 AND DESCRIBES IT ACHING, BURNING, SORE, AND TENDER. SHE DOES ADMIT TO INCREASED THORACIC BACK PAIN RECENTLY. FALL RISK SCREENING: SCREENING :NO FALLS REPORTED IN THE LAST YEAR CURRENT MEDICATIONS TAKING THYROID 60 MG TABLET 1 TABLET ORALLY ONCE A DAY TAKING THYROID 15 MG TABLET 1 TABLET ON AN EMPTY STOMACH ORALLY ONCE A DAY, NOTES: TAKE WITH THE 60MG FOR TOTAL OF 75MG TAKING EYE DROPS SOLUTION 1 DROP EACH EYE OPHTHALMIC DIRECTED TAKING CALCIUM 500 MG TABLET 2 TABS ORALLY TWICE DAILY TAKING OTEZLA 30 MG TABLET 1 TABLET ORALLY TWICE A DAY TAKING SUMATRIPTAN SUCCINATE REFILL 6 MG/0.5ML SOLUTION CARTRIDGE DIRECTED SUBCUTANEOUS DIRECTED - FOR TREATMENT OF MAX 9 HEADACHES PER MONTH, NOTES: PRN TAKING ASPIR-81 81 MG TABLET DELAYED RELEASE 1 TABLET ORALLY ONCE A DAY TAKING NORCO 7.5-325 MG TABLET 1 TABLET NEEDED ORALLY EVERY 6 HRS PRN PAIN MDD 3, NOTES: PRN TAKING TIZANIDINE HCL 4 MG TABLET 1 TAB ORALLY THREE TIMES DAILY, NOTES: TAKES 2 AT HS TAKING VALIUM 2 MG TABLET 1 TABLET NEEDED ORALLY ONCE A DAY PRN SEVERE ANXIETY/SPASM, NOTES: PRN TAKING DICLOFENAC SODIUM 50 MG TABLET DELAYED RELEASE 1 TABLET WITH FOOD OR MILK ORALLY THREE TIMES A DAY NOT-TAKING AIMOVIG 70 MG/ML SOLUTION AUTO-INJECTOR 1 ML SUBCUTANEOUS ONCE A MONTH, NOTES: SATTES SHE IS NOT TAKING NOT-TAKING VITAMIN D 5000 UNIT CAPSULE 1 TABLET ORALLY DAILY NOT-TAKING BENTYL 10 MG CAPSULE 1 CAPSULE ORALLY ONCE DAILY NEEDED, NOTES: PRN NOT-TAKING SUCRALFATE 1 GM TABLET 1 TABLET ON AN EMPTY STOMACH ORALLY FOUR TIMES DAILY, NOTES: PRN NOT-TAKING LIDOCAINE VISCOUS 2 % SOLUTION DIRECTED MOUTH/THROAT APPLY WITH SWAB TO PAINFUL LESIONS IN MOUTH Q4 PRS PRN, NOTES: PRN NOT-TAKING LIDOCAINE 5 % CREAM 1 APPLICATION TO AFFECTED AREA NEEDED EXTERNALLY FOUR TIMES A DAY TO NECK, BASE OF SKULL, LOW BACK PRN PAIN, NOTES: PRN NOT-TAKING GABAPENTIN 100 MG CAPSULE 1 - 2 CAPSULE ORALLY BEFORE BEDTIME NOT-TAKING FOSAMAX 70 MG TABLET 1 TABLET ORALLY ONCE AWEEK NOT-TAKING CO Q-10 100 MG CAPSULE 2 CAPSULE WITH A MEAL ORALLY ONCE A DAY, NOTES: 2 WEEKS AGO NOT-TAKING EMLA 2.5 CREAM PERCENT EXTERNALLY THREE TIMES A DAY NEEDED NOT-TAKING MAGNESIUM 500 MG TABLET 1-2 TABS ORALLY ONCE A DAY NOT-TAKING PROBIOTIC CAPSULE ORALLY BID NOT-TAKING VITAMIN B COMPLEX 1000 MG TABLET ORALLY DAILY MEDICATION LIST REVIEWED AND RECONCILED WITH THE PATIENT PAST MEDICAL HISTORY HYPOTHYROIDISM SJOGRENS FIBROMYALGIA MIGARINES ENDOMETREOISIS POLYCYSTIC OVARY DISEASE IBS DDD OSTEOPOROSIS TIGGER POINT INJECTIONS RIGHT EYE VITREOS PROBLEM PSORASIS ALLERGIES FLECTOR: RASH GABAPENTIN: MIGRANE TRAMADOL: MIGRANE TOPIRAMATE: PANIC ATTACKS DULOXETINE HCL: MIGRANE SULFA (FOR ALLERGY USE ONLY): NAUSEA/ VOMITING PREGABALIN: WEIGHT GAIN TAPE: RASH FOSAMAX: EXTREME BONE PAIN - SIDE EFFECTS SURGICAL HISTORY HYSTERECTOMY 1998 7 LAPAROSCOPY AND WEDGE RESECTION OF OVARIES ONE ALMOST EVERY YEAR UNTIL HYSTER 1982 LUMBAR LAMINECTOMY & DISCECTOMY L5-S1&2 2015 SKIN CANCER REMOVAL 2005 GANGLION CYST REMOVAL 2002 C-SECTIONS 1991&1995 KIDNEY SURGERY AGE 20 RIGHT HAND CARPAL TUNNEL SURGERY 09/2018 FAMILY HISTORY FATHER: ALIVE 78 YRS, DIAGNOSED WITH OTHER SPECIFIED CONDITIONS INFLUENCING HEALTH STATUS MOTHER: 68 YRS, HYPERTENSION, UNSPECIFIED HEART DISEASE SIBLINGS: ALIVE 51 YRS, OTHER SPECIFIED CONDITIONS INFLUENCING HEALTH STATUS 1 BROTHER(S) , 1 SISTER(S) . 1 SON(S) , 1 DAUGHTER(S) - HEALTHY. DENIES FAMILY HX OF MELANOMA AND PANCREATIC CANCER. SOCIAL HISTORY GENERAL: TOBACCO USE ARE YOU A: NONSMOKER. LANGUAGE ZAMBIAN. NEW PATIENT PAIN DIARY TODAY'S VISIT NOTES, FROM 0-10, WHAT LEVEL IS YOUR PAIN TODAY? 0. RECREATIONAL DRUG USE DRUG USE?NO EXERCISE: WALKS. LEARNING BARRIERS / SPECIAL NEEDS BARRIERS TO LEARNING?NO HEARING IMPAIRED?NO VISION IMPAIRED?YES COGNITIVELY IMPAIRED?NO :CORRECTIVE LENSES READINESS TO LEARN?YES LEARNING PREFERENCES?NO LEARNING CAPABILITIES PRESENT?YES EMOTIONAL BARRIERS?NO SPECIAL DEVICES?NO CREDIT CONTROL ADMINISTRATOR NEEDED?NO PAIN CLINIC PFS, CLERGY, PUBLIC HEALTH REFERRALS PFS REFERRAL NEEDED?NO CLERGY REFERRAL NEEDED?NO PUBLIC HEALTH REFERRAL NEEDED?NO WAS THE PROVIDER NOTIFIED OF ANY PERTINENT INFO?NO HAS THE PATIENT BEEN EDUCATED REGARDING HIS/HER PLAN OF CARE?YES HAS THE PATIENT BEEN EDUCATED REGARDING PAIN, THE RISK FOR PAIN, THE IMPORTANCE OF EFFECTIVE PAIN MANAGEMENT, AND THE PAIN ASSESSMENT PROCESS?YES CAFFEINE CAFFEINE USE?YES HOW OFTEN AND HOW MUCH? 2 CUPS DAILY ADVANCE DIRECTIVE ADVANCE DIRECTIVE DISCUSSED WITH PATIENT:YES DECLINED GNOSTICISM NO RELIGION BELIEFS THAT WOULD IMPACT HEALTH CARE. MARITAL STATUS: . ALCOHOL SCREENING DID YOU HAVE A DRINK CONTAINING ALCOHOL IN THE PAST YEAR?NO POINTS0 INTERPRETATIONNEGATIVE OCCUPATION: UNEMPLOYED. SEXUAL HX HAD SEX IN THE LAST 12 MONTHS (VAGINAL, ORAL, OR ANAL)?NO HAVE YOU EVER HAD AN STD?NO REVIEWED WITH PATIENT 03/31/19 1050 NLJ. HOSPITALIZATION/MAJOR DIAGNOSTIC PROCEDURE SAME ABOVE REVIEW OF SYSTEMS REVIEWED BY: PROVIDER: EVANGELINA CARTER CABIN SERVICE AGENT-C . CONSTITUTIONAL: ANY CHANGE IN YOUR MEDICAL CONDITION? NO . CHILLS NO . FEVER NO . INFECTION: DO YOU HAVE NEW INFECTIONS? NO . DO YOU HAVE HISTORY OF MRSA? NO . MUSCULOSKELETAL: ANY NEW PATTERNS OF PAIN OR NUMBNESS? YES- STATES THAT HER PAIN IS WORSE IN HER THORACIC AREA, STATE SHE FEELS A BURNING PAIN, STATES SHE HAS FELT TINGLING IN LEFT SHOULDER . GASTROENTEROLOGY: ANY NEW CHANGE IN BOWEL CONTROL? NO . GENITOURINARY: ANY NEW CHANGE IN BLADDER CONTROL? NO . IS THERE A CHANCE YOU COULD BE ? NO . HEMATOLOGY/LYMPH: DO YOU TAKE ANY BLOOD THINNERS? (FOR EXAMPLE- COUMADIN, PLAVIX, AGGRENOX, PLATEL, PRADAXA, OR XARELTO) NO . WHEN WAS YOUR LAST DOSE? DATE: TIME: . NEUROLOGY: HAVE YOU FALLEN IN THE PAST 12 MONTHS? NO- NO FALLS SINCE SINCE VISIT . ANY NEW EXTREMITY NUMBNESS OR WEAKNESS? NO . CARDIOLOGY: DO YOU HAVE A PACEMAKER OR DEFIBRILLATOR? NO . RESPIRATORY: HAVE YOU BEEN SICK IN THE PAST WEEK? NO . FEVER NO . FLU LIKE SYMPTOMS? NO . COUGH NO . INTEGUMENTARY: DO YOU HAVE ANY RASHES OR OPEN SORES? NO . ALLERGIC/IMMUNO: ARE YOU ALLERGIC TO IV DYE? NO . ANY NEW ALLERGIES? NO . PSYCHIATRIC: DO YOU HAVE THOUGHTS OF HURTING YOURSELF OR SOMEONE ELSE? NO . ARE YOU ABUSED, NEGLECTED, OR IN AN UNSAFE ENVIRONMENT? NO . ENDOCRINOLOGY: ARE YOU DIABETIC? NO . OTHER: DO YOU NEED ANY PRESCRIPTIONS? YES . IF YES, PLEASE LIST: ____TIZANIDINE . ANY NEW PROBLEMS WITH YOUR MEDICATIONS? NO . WHEN DID YOU LAST EAT? ____ . WHEN DID YOU LAST DRINK? ____ . WHAT DID YOU LAST DRINK? ____ . NAME OF PERSON DRIVING YOU HOME? ____ . DO YOU HAVE ANY OTHER QUESTIONS OR CONCERNS YES- STARTED DICLOFENAC SODIUM AT LAST VISIT AND PT STATES SHE DOES NOT FEEL LIKE IT IS WORKING FOR HER PAIN, WHAT ARE OPTIONS . VITAL SIGNS WT 137.2 LBS, HT 61 IN, BMI 25.92 INDEX, BP 136/75 MM HG, HR 77 /MIN, RR 18 /MIN, TEMP 97.4 F, OXYGEN SAT % 99%, SAFE IN ENV? (Y/N) YES, REVIEWED BY: CORNELIUS. EXAMINATION GENERAL EXAMINATION: GENERALNO ACUTE DISTRESS, WELL NOURISHED AND HYDRATED. PSYCHAPPROPRIATE MOOD AND AFFECT . LUNGS:CLEAR TO AUSCULTATION BILATERALLY, NO WHEEZES, RHONCHI, RALES. HEART:NO MURMURS, REGULAR RATE AND RHYTHM. ASSESSMENTS LUMBAR POST-LAMINECTOMY SYNDROME - M96.1 (PRIMARY) LUMBAR RADICULOPATHY - M54.16 TREATMENT LUMBAR POST-LAMINECTOMY SYNDROME STOP DICLOFENAC SODIUM TABLET DELAYED RELEASE, 50 MG, 1 TABLET WITH FOOD OR MILK, ORALLY, THREE TIMES A DAY START MELOXICAM TABLET, 15 MG, 1 TABLET, ORALLY, ONCE A DAY, 30 DAY(S), 30 REFILL TIZANIDINE HCL TABLET, 4 MG, 1 TAB, ORALLY, THREE TIMES DAILY, 30 DAYS, 90, REFILLS 0, NOTES: TAKES 2 AT HS X RAY : SPINES, THORACIC [id number] CLINICAL NOTES: 53-YEAR-OLD FEMALE IN FOR CHRONIC PAIN FOLLOW-UP. GIVEN PRESENTING SYMPTOMS AND RESULTS OF PHYSICAL EXAMINATION RECOMMENDED X-RAY OF THORACIC SPINE, STOPPING DICLOFENAC, AND STARTING MELOXICAM. FURTHER RECOMMENDED FOLLOW-UP IN ONE MONTH. PATIENT HAS EXPRESSED UNDERSTANDING OF AND WAS IN AGREEMENT WITH TREATMENT PLAN. GIVEN TIME TO ASK QUESTIONS AND EXPRESS CONCERNS., ISTOP REGISTRY REVIEWED AND DEMONSTRATES COMPLLIANCE. (REF # [id number] ) BRINGS IN MEDICATIONS WHICH IS APPROPRIATE FOR WHAT WAS DISPENSED. RECENT URINE TOXICOLOGY REVIEWED. NO UNAUTHORIZED MEDICATIONS. NO ILLICIT SUBSTANCES AND PRESCRIBED MEDICATIONS WERE PRESENT. PREVENTIVE MEDICINE PAIN CLINIC TEACHING: MEDICATIONS MELOXICAM DRUG INFORMATION SHEETS PRINTED AND REIEWED WITH PT, PATIENT ALSO ENCOURAGED TO STOP DICLOFENAC SODIUM AND NOT TO USE ANY OTHER NSAIDS WITH MELOXICAM, PT VERBALIZED UNDERSTANDING OF EDUCATION PROVIDED 03/31/19 1147 NLJ. PROCEDURE CODES FA211 ESTABILISHED PATIENT [facility] CHARGE DISPOSITION & COMMUNICATION FOLLOW UP 4 WEEKS (REASON: CHRONIC PAIN ) ELECTRONICALLY SIGNED BY GIOVANI ROJO ON 04/01/2019 AT 08:44 AM EDT DISCLAIMER : THIS IS A VISIT SUMMARY EXTRACTED FROM THE [facility] CHART. IT IS NOT A COPY OF THE [facility] PROGRESS NOTE. ANTONELLA
== END ==
LOC: M PAIN 10:45
PROVIDERS: ATTEND Family Medicine
DX: M96.1 Postlaminectomy syndrome, not elsewhere classified (principal); M54.16 Radiculopathy, lumbar region; E03.9 Hypothyroidism, unspecified; M79.7 Fibromyalgia; G43.909 Migraine, unspecified, not intractable, without status migrainosus; M81.0 Age-related osteoporosis without current pathological fracture; Z88.2 Allergy status to sulfonamides; Z88.5 Allergy status to narcotic agent; Z88.6 Allergy status to analgesic agent; Z88.8 Allergy status to other drugs, medicaments and biological substances; Z91.09 Other allergy status, other than to drugs and biological substances; Z79.82 Long term (current) use of aspirin; Z79.899 Other long term (current) drug therapy

== ENCOUNTER → 2019-05-13 | Outpatient (CLI) | payer BC ==
--- NOTE | 2019-05-13 11:30 | REP ---
Clinical: Pain. Technique: AP, lateral, and swimmers views. Findings: Alignment and kyphosis is maintained. Vertebral bodies intact. No acute fracture / compression injury or subluxation. No degenerative changes. Paravertebral soft tissues are normal. Impression: Normal thoracic spine series. Electronically Signed by Joaquin Moore MD 05/13/2019 11:21 A
== END ==
LOC: M WUC 11:06
PROVIDERS: ATTEND Family Medicine
DX: M96.1 Postlaminectomy syndrome, not elsewhere classified (principal)

== ENCOUNTER → 2019-08-24 | Outpatient (CLI) | payer BC ==
--- NOTE | 2019-08-26 02:24 | ECWPNPC ---
PATIENT NAME: FRANCK CROW : 1965 GENDER: FEMALE VISIT DATE: 08/24/2019 DISCHARGE DATE: 08/24/19 0000 VISIT LOCKED DATE TIME: PHYSICIAN: RALF CARTER RESOURCE: RALF CARTER REASON FOR APPOINTMENT 1. BACK HISTORY OF PRESENT ILLNESS HISTORY OF PRESENT ILLNESS: PAIN THE PATIENT DESCRIBES THE PAINDURING THE LAST MONTH SEVERITY - PAIN SCORE OF4/10 LOCATIONSNECK, LOWER BACK, LEFT LEG QUALITYACHING , BURNING, TENDER, SORE DURATIONCONTINUOUS, AWAKENS FROM SLEEEP 53-YEAR-OLD FEMALE IN FOR CHRONIC PAIN FOLLOW-UP. SHE RATES HER PAIN CURRENTLY AT A 4 OUT OF 10 AND DESCRIBES IT ACHING, BURNING, SORE, AND TENDER. SHE WOULD LIKE TO RESTART HER HYDROCODONE SHE SAYS HER PAIN HAS STARTED TO INCREASE. SHE FURTHER STATES SHE HAS STARTED TO TIZANIDINE AGAIN AND FOUND THIS HELPFUL. FALL RISK SCREENING: SCREENING :NO FALLS REPORTED IN THE LAST YEAR CURRENT MEDICATIONS TAKING THYROID 60 MG TABLET 1 TABLET ORALLY ONCE A DAY TAKING THYROID 15 MG TABLET 1 TABLET ON AN EMPTY STOMACH ORALLY ONCE A DAY, NOTES: TAKE WITH THE 60MG FOR TOTAL OF 75MG TAKING EYE DROPS SOLUTION 1 DROP EACH EYE OPHTHALMIC DIRECTED TAKING CALCIUM 500 MG TABLET 2 TABS ORALLY TWICE DAILY TAKING OTEZLA 30 MG TABLET 1 TABLET ORALLY TWICE A DAY TAKING SUMATRIPTAN SUCCINATE REFILL 6 MG/0.5ML SOLUTION CARTRIDGE DIRECTED SUBCUTANEOUS DIRECTED - FOR TREATMENT OF MAX 9 HEADACHES PER MONTH, NOTES: PRN TAKING ASPIR-81 81 MG TABLET DELAYED RELEASE 1 TABLET ORALLY ONCE A DAY TAKING NORCO 7.5-325 MG TABLET 1 TABLET NEEDED ORALLY EVERY 6 HRS PRN PAIN MDD 3, NOTES: PRN TAKING VALIUM 2 MG TABLET 1 TABLET NEEDED ORALLY ONCE A DAY PRN SEVERE ANXIETY/SPASM, NOTES: PRN TAKING MELOXICAM 15 MG TABLET 1 TABLET ORALLY ONCE A DAY TAKING TIZANIDINE HCL 4 MG TABLET 1 TAB ORALLY THREE TIMES DAILY, NOTES: TAKES 2 AT HS NOT-TAKING AIMOVIG 70 MG/ML SOLUTION AUTO-INJECTOR 1 ML SUBCUTANEOUS ONCE A MONTH, NOTES: SATTES SHE IS NOT TAKING NOT-TAKING VITAMIN D 5000 UNIT CAPSULE 1 TABLET ORALLY DAILY NOT-TAKING BENTYL 10 MG CAPSULE 1 CAPSULE ORALLY ONCE DAILY NEEDED, NOTES: PRN NOT-TAKING SUCRALFATE 1 GM TABLET 1 TABLET ON AN EMPTY STOMACH ORALLY FOUR TIMES DAILY, NOTES: PRN NOT-TAKING LIDOCAINE VISCOUS 2 % SOLUTION DIRECTED MOUTH/THROAT APPLY WITH SWAB TO PAINFUL LESIONS IN MOUTH Q4 PRS PRN, NOTES: PRN NOT-TAKING LIDOCAINE 5 % CREAM 1 APPLICATION TO AFFECTED AREA NEEDED EXTERNALLY FOUR TIMES A DAY TO NECK, BASE OF SKULL, LOW BACK PRN PAIN, NOTES: PRN NOT-TAKING GABAPENTIN 100 MG CAPSULE 1 - 2 CAPSULE ORALLY BEFORE BEDTIME NOT-TAKING FOSAMAX 70 MG TABLET 1 TABLET ORALLY ONCE AWEEK NOT-TAKING CO Q-10 100 MG CAPSULE 2 CAPSULE WITH A MEAL ORALLY ONCE A DAY, NOTES: 2 WEEKS AGO NOT-TAKING EMLA 2.5 CREAM PERCENT EXTERNALLY THREE TIMES A DAY NEEDED NOT-TAKING MAGNESIUM 500 MG TABLET 1-2 TABS ORALLY ONCE A DAY NOT-TAKING PROBIOTIC CAPSULE ORALLY BID NOT-TAKING VITAMIN B COMPLEX 1000 MG TABLET ORALLY DAILY MEDICATION LIST REVIEWED AND RECONCILED WITH THE PATIENT PAST MEDICAL HISTORY HYPOTHYROIDISM SJOGRENS FIBROMYALGIA MIGARINES ENDOMETREOISIS POLYCYSTIC OVARY DISEASE IBS DDD OSTEOPOROSIS TIGGER POINT INJECTIONS RIGHT EYE VITREOS PROBLEM PSORASIS ALLERGIES FLECTOR: RASH GABAPENTIN: MIGRANE TRAMADOL: MIGRANE TOPIRAMATE: PANIC ATTACKS DULOXETINE HCL: MIGRANE SULFA (FOR ALLERGY USE ONLY): NAUSEA/ VOMITING PREGABALIN: WEIGHT GAIN TAPE: RASH FOSAMAX: EXTREME BONE PAIN - SIDE EFFECTS SURGICAL HISTORY HYSTERECTOMY 1997 7 LAPAROSCOPY AND WEDGE RESECTION OF OVARIES ONE ALMOST EVERY YEAR UNTIL HYSTER 1982 LUMBAR LAMINECTOMY & DISCECTOMY L5-S1&2 2015 SKIN CANCER REMOVAL 2005 GANGLION CYST REMOVAL 2002 C-SECTIONS 1991&1995 KIDNEY SURGERY AGE 20 RIGHT HAND CARPAL TUNNEL SURGERY 09/2018 FAMILY HISTORY FATHER: ALIVE 78 YRS, DIAGNOSED WITH OTHER SPECIFIED CONDITIONS INFLUENCING HEALTH STATUS MOTHER: 68 YRS, HYPERTENSION, UNSPECIFIED HEART DISEASE SIBLINGS: ALIVE 51 YRS, OTHER SPECIFIED CONDITIONS INFLUENCING HEALTH STATUS 1 BROTHER(S) , 1 SISTER(S) . 1 SON(S) , 1 DAUGHTER(S) - HEALTHY. DENIES FAMILY HX OF MELANOMA AND PANCREATIC CANCER. SOCIAL HISTORY GENERAL: TOBACCO USE ARE YOU A: NONSMOKER. LANGUAGE VIET[place]ESE. NEW PATIENT PAIN DIARY TODAY'S VISIT NOTES, FROM 0-10, WHAT LEVEL IS YOUR PAIN TODAY? 0. RECREATIONAL DRUG USE DRUG USE?NO EXERCISE: WALKS. LEARNING BARRIERS / SPECIAL NEEDS BARRIERS TO LEARNING?NO HEARING IMPAIRED?NO VISION IMPAIRED?YES COGNITIVELY IMPAIRED?NO :CORRECTIVE LENSES READINESS TO LEARN?YES LEARNING PREFERENCES?NO LEARNING CAPABILITIES PRESENT?YES EMOTIONAL BARRIERS?NO SPECIAL DEVICES?NO FOUNDRY LABORER COREROOM NEEDED?NO PAIN CLINIC PFS, CLERGY, PUBLIC HEALTH REFERRALS PFS REFERRAL NEEDED?NO CLERGY REFERRAL NEEDED?NO PUBLIC HEALTH REFERRAL NEEDED?NO WAS THE PROVIDER NOTIFIED OF ANY PERTINENT INFO?NO HAS THE PATIENT BEEN EDUCATED REGARDING HIS/HER PLAN OF CARE?YES HAS THE PATIENT BEEN EDUCATED REGARDING PAIN, THE RISK FOR PAIN, THE IMPORTANCE OF EFFECTIVE PAIN MANAGEMENT, AND THE PAIN ASSESSMENT PROCESS?YES CAFFEINE CAFFEINE USE?YES HOW OFTEN AND HOW MUCH? 2 CUPS DAILY ADVANCE DIRECTIVE ADVANCE DIRECTIVE DISCUSSED WITH PATIENT:YES DECLINED WORSHIP NO GNOSTICIST BELIEFS THAT WOULD IMPACT HEALTH CARE. MARITAL STATUS: . ALCOHOL SCREENING DID YOU HAVE A DRINK CONTAINING ALCOHOL IN THE PAST YEAR?NO POINTS0 INTERPRETATIONNEGATIVE OCCUPATION: UNEMPLOYED. SEXUAL HX HAD SEX IN THE LAST 12 MONTHS (VAGINAL, ORAL, OR ANAL)?NO HAVE YOU EVER HAD AN STD?NO REVIEWED WITH PATIENT 03/31/19 1059 NLJ. HOSPITALIZATION/MAJOR DIAGNOSTIC PROCEDURE SAME ABOVE REVIEW OF SYSTEMS REVIEWED BY: PROVIDER: EVANGELINA CARTER COOK MANAGER-C . CONSTITUTIONAL: ANY CHANGE IN YOUR MEDICAL CONDITION? NO . CHILLS NO . FEVER NO . INFECTION: DO YOU HAVE NEW INFECTIONS? NO . DO YOU HAVE HISTORY OF MRSA? NO . MUSCULOSKELETAL: ANY NEW PATTERNS OF PAIN OR NUMBNESS? YES, NUMBNESS GOING DOWN LEFT ARM . GASTROENTEROLOGY: ANY NEW CHANGE IN BOWEL CONTROL? NO . GENITOURINARY: ANY NEW CHANGE IN BLADDER CONTROL? NO . IS THERE A CHANCE YOU COULD BE ? NO . HEMATOLOGY/LYMPH: DO YOU TAKE ANY BLOOD THINNERS? (FOR EXAMPLE- COUMADIN, PLAVIX, AGGRENOX, PLATEL, PRADAXA, OR XARELTO) NO . WHEN WAS YOUR LAST DOSE? DATE: TIME: . NEUROLOGY: HAVE YOU FALLEN IN THE PAST 12 MONTHS? YES, . ANY NEW EXTREMITY NUMBNESS OR WEAKNESS? NO . CARDIOLOGY: DO YOU HAVE A PACEMAKER OR DEFIBRILLATOR? NO . RESPIRATORY: HAVE YOU BEEN SICK IN THE PAST WEEK? NO . FEVER NO . FLU LIKE SYMPTOMS? NO . COUGH NO . INTEGUMENTARY: DO YOU HAVE ANY RASHES OR OPEN SORES? NO . ALLERGIC/IMMUNO: ARE YOU ALLERGIC TO IV DYE? NO . ANY NEW ALLERGIES? NO . PSYCHIATRIC: DO YOU HAVE THOUGHTS OF HURTING YOURSELF OR SOMEONE ELSE? NO . ARE YOU ABUSED, NEGLECTED, OR IN AN UNSAFE ENVIRONMENT? NO . ENDOCRINOLOGY: ARE YOU DIABETIC? NO . OTHER: DO YOU NEED ANY PRESCRIPTIONS? YES, VICODEN,VALIUM, TIZANIDINE . IF YES, PLEASE LIST: ____ . ANY NEW PROBLEMS WITH YOUR MEDICATIONS? NO . WHEN DID YOU LAST EAT? ____ . WHEN DID YOU LAST DRINK? ____ . WHAT DID YOU LAST DRINK? ____ . NAME OF PERSON DRIVING YOU HOME? ____ . DO YOU HAVE ANY OTHER QUESTIONS OR CONCERNS YES, RECENTLY GOT MRI'S DONE AND WANTS GO OVER IT . VITAL SIGNS WT 164.7 LBS, HT 61 IN, BMI 31.12 INDEX, BP 142/69 MM HG, HR 78 /MIN, RR 18 /MIN, TEMP 98.6 F, OXYGEN SAT % 98%, NA INITIALS AW 1155. EXAMINATION GENERAL EXAMINATION: GENERALNO ACUTE DISTRESS, WELL NOURISHED AND HYDRATED. PSYCHAPPROPRIATE MOOD AND AFFECT . LUNGS:CLEAR TO AUSCULTATION BILATERALLY, NO WHEEZES, RHONCHI, RALES. HEART:NO MURMURS, REGULAR RATE AND RHYTHM. ASSESSMENTS LUMBAR RADICULOPATHY - M54.16 (PRIMARY) CHRONIC USE OF OPIATE DRUG FOR THERAPEUTIC PURPOSE - Z79.891 TREATMENT LUMBAR RADICULOPATHY REFILL NORCO TABLET, 7.5-325 MG, 1 TABLET NEEDED, ORALLY, EVERY 6 HRS PRN PAIN MDD 3, 30 DAYS, 90, REFILLS 0, NOTES: PRN REFILL VALIUM TABLET, 2 MG, 1 TABLET NEEDED, ORALLY, ONCE A DAY PRN SEVERE ANXIETY/SPASM, 30 DAY(S), 30, REFILLS 0, NOTES: PRN REFILL TIZANIDINE HCL TABLET, 4 MG, 1 TAB, ORALLY, THREE TIMES DAILY, 30 DAYS, 90, REFILLS 0, NOTES: TAKES 2 AT HS CLINICAL NOTES: 53-YEAR-OLD FEMALE IN FOR CHRONIC PAIN FOLLOW-UP. GIVEN PRESENTING SYMPTOMS AND RESULTS OF PHYSICAL EXAMINATION RECOMMENDED CONTINUATION OF CURRENT MEDICATION REGIMEN WITH FOLLOW-UP IN 2 MONTHS. DISCUSSED POTENTIAL CERVICAL FACET BLOCKS WITH PATIENT AND SHE WAS GIVEN INFORMATION REGARDING THIS AND WE WILL DISCUSS FURTHER AT HER NEXT FOLLOW-UP APPOINTMENT. PATIENT HAS EXPRESSED UNDERSTANDING OF AND WAS IN AGREEMENT WITH TREATMENT PLAN. GIVEN TIME TO ASK QUESTIONS AND EXPRESS CONCERNS., ISTOP REGISTRY REVIEWED AND DEMONSTRATES COMPLLIANCE. (REF # [id number] ) BRINGS IN MEDICATIONS WHICH IS APPROPRIATE FOR WHAT WAS DISPENSED. RECENT URINE TOXICOLOGY REVIEWED. NO UNAUTHORIZED MEDICATIONS. NO ILLICIT SUBSTANCES AND PRESCRIBED MEDICATIONS WERE PRESENT. PROCEDURE CODES FA211 ESTABILISHED PATIENT [facility] CHARGE DISPOSITION & COMMUNICATION FOLLOW UP 2 MONTHS (REASON: NECK AND BACK PAIN) ELECTRONICALLY SIGNED BY GIOVANI ROJO ON 08/25/2019 AT 01:05 PM EDT DISCLAIMER : THIS IS A VISIT SUMMARY EXTRACTED FROM THE [facility] CHART. IT IS NOT A COPY OF THE [facility] PROGRESS NOTE. ANTONELLA
== END ==
LOC: M PAIN 11:15
PROVIDERS: ATTEND Family Medicine
DX: M54.16 Radiculopathy, lumbar region (principal); Z79.891 Long term (current) use of opiate analgesic

== ENCOUNTER → 2019-12-27 | Outpatient (REF) | payer BC | LOC: M LAB REF 18:31 | PROVIDERS: ATTEND Physician Assistant | DX: L81.4 Other melanin hyperpigmentation (principal) ==

== ENCOUNTER → 2020-03-30 | Outpatient (CLI) | payer BC ==
--- NOTE | 2020-03-30 11:23 | REP ---
INDICATION: PAIN COMPARISON: None. TECHNIQUE: AP, lateral, bilateral oblique and sunrise views. FINDINGS: The osseous structures and joint spaces are intact and normal. There is no evidence for acute fracture or dislocation. No joint effusion is appreciated. Surrounding soft tissues are unremarkable. No subcutaneous emphysema or radiodense foreign body. IMPRESSION: Normal examination age-appropriate left knee radiographs. <Electronically signed by Joaquin Moore > 03/30/20 1668
== END ==
LOC: M WUC 09:17
PROVIDERS: ATTEND Physician Assistant Medical
DX: M25.562 Pain in left knee (principal)

== ENCOUNTER → 2020-09-20 | Outpatient (CLI) | payer BC ==
[2020-09-20 13:37] LABS: HEMATOCRIT 39.8 % (36.0-47.0); HEMOGLOBIN 12.5 g/dl (12.0-15.5); MEAN CORPUSCULAR HEMOGLOBIN 26.2 pg (27.0-33.0); MEAN CORPUSCULAR HGB CONC 31.4 g/dl (32.0-36.5); MEAN CORPUSCULAR VOLUME 83.4 fl (80.0-96.0); PLATELET COUNT, AUTOMATED 351 10^3/uL (150-450); RED BLOOD COUNT 4.77 10^6/uL (4.00-5.40); WHITE BLOOD COUNT 4.8 10^3/uL (4.0-10.0)
[2020-09-20 14:06] LABS: ERYTHROCYTE SEDIMENTATION RATE 15 mm/hr (0-30)
[2020-09-20 14:24] LABS: ATYPICAL LYMPH 11 % (0-5); BASOPHILS 2 % (0-1); EOSINOPHILS 1 % (0-3); LYMPHOCYTES 42 % (16-44); MONOCYTES 5 % (0-5); NEUTROPHILS 33 % (28-66)
[2020-09-20 14:25] LABS: ANISOCYTOSIS 1+; PLATELET ESTIMATE NORMAL (NORMAL)
[2020-09-20 16:27] LABS: ALT/SGPT 24 U/L (12-78); C REACTIVE PROTEIN QUANTITATIV < 0.30 MG/DL (0.00-0.30); CREATININE FOR GFR 0.67 MG/DL (0.55-1.30); GLOMERULAR FILTRATION RATE > 60.0 (>51)
== END ==
LOC: M WUC 10:52
PROVIDERS: ATTEND Internal Medicine Rheumatology
DX: L40.0 Psoriasis vulgaris (principal); Z79.899 Other long term (current) drug therapy; M35.01 Sjogren syndrome with keratoconjunctivitis

== ENCOUNTER → 2021-06-11 | Outpatient (REF) | payer BC ==
[~2021-06-11] MED LIST changes: +OMEP40CA4 PO; -OMEP40CA97 PO
== END ==
LOC: M LAB REF 12:31
PROVIDERS: ATTEND Internal Medicine
DX: M25.50 Pain in unspecified joint (principal)

== ENCOUNTER → 2021-09-10 | Outpatient (REF) | payer BC | LOC: M LAB REF 16:40 | PROVIDERS: ATTEND Internal Medicine | DX: L40.0 Psoriasis vulgaris (principal); M35.00 Sjogren syndrome, unspecified ==

== ENCOUNTER → 2021-11-21 | Outpatient (REF) | payer BC ==
[2021-11-21 14:53] LABS: C REACTIVE PROTEIN QUANTITATIV < 0.30 MG/DL (0.00-0.30)
[2021-11-21 15:05] LABS: CORTISOL AM 12.9 UG/DL (4.3-22.4)
== END ==
LOC: M LAB REF 11:45
PROVIDERS: ATTEND Internal Medicine
DX: L40.0 Psoriasis vulgaris (principal); M35.00 Sjogren syndrome, unspecified

== ENCOUNTER → 2022-01-22 | Outpatient (REF) | payer BC | LOC: M LAB REF 16:33 | PROVIDERS: ATTEND Physician Assistant | DX: J02.9 Acute pharyngitis, unspecified (principal) ==

== ENCOUNTER → 2022-05-09 | Outpatient (REF) | payer BC ==
[2022-05-09 17:51] LABS: FOLATE 20.5 NG/ML (>5.4)
== END ==
LOC: M LAB REF 16:16
PROVIDERS: ATTEND Registered Nurse
DX: R20.2 Paresthesia of skin (principal)

== ENCOUNTER → 2022-05-17 | Outpatient (CLI) | payer BC ==
[~2022-05-17] MED LIST changes: +PROHANCE 279.3MG/ML 15ML VIAL ONE
== END ==
LOC: M PLAIMG 08:25
PROVIDERS: ATTEND Registered Nurse
DX: G43.909 Migraine, unspecified, not intractable, without status migrainosus (principal); R26.89 Other abnormalities of gait and mobility
CPT/HCPCS: 70553; A9576

== ENCOUNTER → 2022-09-20 | Outpatient (CLI) | payer BC ==
[~2022-09-20] MED LIST changes: +E-Z-GAS II EFFERVESCENT PACKET (SODIUM BICARB./CITRIC ACID/SIMETHICONE) As Ordered ONE; +E-Z-HD 98% w/w 340GM SUSP BTL As Ordered ONE; +E-Z-PAQUE 96% w/w SUSP 176GM BTL As Ordered ONE; -PROHANCE 279.3MG/ML 15ML VIAL ONE
== END ==
LOC: M RAD 09:02
PROVIDERS: ATTEND Nurse Practitioner
DX: R10.13 Epigastric pain (principal); R14.0 Abdominal distension (gaseous)

== ENCOUNTER → 2023-06-06 | Outpatient (REF) | payer BC ==
[~2023-06-06] MED LIST changes: -E-Z-GAS II EFFERVESCENT PACKET (SODIUM BICARB./CITRIC ACID/SIMETHICONE) As Ordered ONE; -E-Z-HD 98% w/w 340GM SUSP BTL As Ordered ONE; -E-Z-PAQUE 96% w/w SUSP 176GM BTL As Ordered ONE; -HYDR200T3 PO; +HYDR200T46 PO
== END ==
LOC: M LAB REF 16:19
PROVIDERS: ATTEND Internal Medicine
DX: E03.9 Hypothyroidism, unspecified (principal)

== ENCOUNTER → 2023-07-16 | Outpatient (CLI) | payer BC | LOC: M WUC 11:46 | PROVIDERS: ATTEND Nurse Practitioner | DX: K21.9 Gastro-esophageal reflux disease without esophagitis (principal); K58.9 Irritable bowel syndrome, unspecified ==

== ENCOUNTER → 2023-09-18 | Outpatient (CLI) | payer BC ==
[~2023-09-18] MED LIST changes: +GASTROGRAFIN SOLUTION 30ML As Ordered ONE; +ISOVUE-370 76% 100ML VIAL As Ordered ONE
== END ==
LOC: M RAD 15:16
PROVIDERS: ATTEND Nurse Practitioner Family
DX: R10.9 Unspecified abdominal pain (principal); R19.7 Diarrhea, unspecified

== ENCOUNTER → 2023-09-23 | Outpatient (CLI) | payer BC ==
[~2023-09-23] MED LIST changes: -GASTROGRAFIN SOLUTION 30ML As Ordered ONE; -ISOVUE-370 76% 100ML VIAL As Ordered ONE
[2023-09-23 17:19] LABS: THYROID STIMULATING HORMONE 0.663 uIU/ML (0.55-4.78)
[2023-09-23 17:20] LABS: FOLATE > 24.0 NG/ML (>5.4); VITAMIN B12 LEVEL 681 PG/ML (211-911)
== END ==
LOC: M LAB 15:50
PROVIDERS: ATTEND Psychiatry & Neurology Neurology
DX: H53.2 Diplopia (principal)

== ENCOUNTER → 2023-09-23 | Outpatient (CLI) | payer BC ==
[2023-09-23 17:00] LABS: BASO # 0.1 10^3/uL (0.0-0.2); BASO % 1.4 % (0.0-1.0); EOS # 0.3 10^3/uL (0.0-0.5); EOS % 4.1 % (0.0-3.0); HEMATOCRIT 40.9 % (36.0-47.0); HEMOGLOBIN 13.3 g/dl (12.0-15.5); LYMPH # 2.3 10^3/uL (1.5-5.0); MEAN CORPUSCULAR HEMOGLOBIN 27.1 pg (27.0-33.0); MEAN CORPUSCULAR HGB CONC 32.5 g/dl (32.0-36.5); MEAN CORPUSCULAR VOLUME 83.5 fl (80.0-96.0); MONO # 0.7 10^3/uL (0.0-0.8); MONO % 10.5 % (2.0-8.0); NEUTROPHILS # 3.6 10^3/uL (1.5-8.5); NEUTROPHILS % 50.7 % (36.0-66.0); PLATELET COUNT, AUTOMATED 362 10^3/uL (150-450); WHITE BLOOD COUNT 7.1 10^3/uL (4.0-10.0)
[2023-09-23 17:05] LABS: ERYTHROCYTE SEDIMENTATION RATE 31 mm/hr (0-30)
== END ==
LOC: M LAB 15:53
PROVIDERS: ATTEND Optometrist
DX: M31.6 Other giant cell arteritis (principal)

== ENCOUNTER → 2023-10-02 | Outpatient (REF) | payer BC | LOC: M LAB REF 16:25 | PROVIDERS: ATTEND Internal Medicine | DX: R53.83 Other fatigue (principal) ==

== ENCOUNTER → 2023-10-13 | Outpatient (REF) | payer BC | LOC: M LAB REF 09:58 | PROVIDERS: ATTEND Internal Medicine | DX: R19.7 Diarrhea, unspecified (principal); R10.9 Unspecified abdominal pain ==

== ENCOUNTER → 2024-04-06 | Outpatient (REF) | payer BC | LOC: M LAB REF 17:20 | PROVIDERS: ATTEND Internal Medicine | DX: M79.7 Fibromyalgia (principal); R53.83 Other fatigue ==

== ENCOUNTER → 2024-05-21 | Outpatient (REF) | payer BC | LOC: M SFHCDERM 16:43 | PROVIDERS: ATTEND Dermatology | DX: T14.90XD Injury, unspecified, subsequent encounter (principal) ==

== ENCOUNTER → 2024-07-01 | Outpatient (REF) | payer BC | LOC: M SFHCDERM 17:22 | PROVIDERS: ATTEND Dermatology | DX: T14.90XD Injury, unspecified, subsequent encounter (principal) ==

== ENCOUNTER → 2024-08-18 | Outpatient (REF) | payer BC ==
[2024-08-19 15:09] LABS: IRON (FE) 30 UG/DL (50-170); TOTAL IRON BINDING CAPACITY 375 UG/DL (250-425)
[2024-08-19 15:11] LABS: FERRITIN 13.2 NG/ML (7.3-270.7)
[2024-08-19 15:12] LABS: FOLATE > 24.0 NG/ML (>5.4); VITAMIN B12 LEVEL 577 PG/ML (211-911)
== END ==
LOC: M LAB REF 12:59
PROVIDERS: ATTEND Internal Medicine
DX: M79.7 Fibromyalgia (principal); M54.2 Cervicalgia; D64.9 Anemia, unspecified

== ENCOUNTER → 2024-09-20 | Outpatient (CLI) | payer BC | LOC: M RAD 07:41 | PROVIDERS: ATTEND Internal Medicine | DX: M54.50 Low back pain, unspecified (principal) ==

== ENCOUNTER 2024-12-09 05:16 | Inpatient (IN) | payer BC ==
[~2024-12-09] VITALS: Ht 154.9 cm; Wt 64.8 kg
[2024-12-09] MEDS: MORPHINE 4 MG/ML 1 ML VIAL IV PRN (07:50)
[2024-12-09] MEDS: KETOROLAC 30 MG/ML 1 ML VIAL IV ONE ×3 (07:50→18:38)
[2024-12-09 07:57] LABS: BASO # 0.1 10^3/uL (0.0-0.2); BASO % 1.1 % (0.0-1.0); EOS # 0.1 10^3/uL (0.0-0.5); EOS % 2.3 % (0.0-3.0); LYMPH # 1.4 10^3/uL (1.5-5.0); LYMPH % 25.5 % (24.0-44.0); MONO # 0.5 10^3/uL (0.0-0.8); MONO % 8.8 % (2.0-8.0); NEUTROPHILS # 3.4 10^3/uL (1.5-8.5); NEUTROPHILS % 62.1 % (36.0-66.0); PLATELET COUNT, AUTOMATED 341 10^3/uL (150-450)
[2024-12-09 08:01] LABS: ERYTHROCYTE SEDIMENTATION RATE 30 mm/hr (0-30)
[2024-12-09] MEDS ORDERED: PHEN30CA21 PO (08:08)
[2024-12-09] MEDS ORDERED: SUMA6PEN5 INJ (08:08)
[2024-12-09] MEDS ORDERED: NP T60TA PO ×2 (08:08→14:09)
[2024-12-09] MEDS ORDERED: TIZA10TA PO (08:08)
[2024-12-09 08:26] LABS: C REACTIVE PROTEIN QUANTITATIV < 0.50 MG/DL (<1.0); CALCIUM LEVEL 8.9 MG/DL (8.5-10.1); CARBON DIOXIDE LEVEL 26 MMOL/L (20-31); CHLORIDE LEVEL 106 MMOL/L (98-107); CREATININE FOR GFR 0.63 MG/DL (0.55-1.30); GLOMERULAR FILTRATION RATE > 90.0 (>51); POTASSIUM SERUM 4.1 MMOL/L (3.5-5.1); SODIUM LEVEL 143 MMOL/L (136-145)
[2024-12-09] MEDS: LIDOCAINE 5% PATCH TD ONE (09:42)
[2024-12-09] MEDS ORDERED: ISOVUE-370 76% 100 ML VIAL As Ordered ONE (14:01)
[2024-12-09] MEDS ORDERED: APRE30TA3 PO (14:11)
[2024-12-09] MEDS ORDERED: HOME MED LIST COMPLETE! XX SCH (14:15)
[2024-12-09] MEDS: HYDROMORPHONE HCL 0.5 MG/0.5 ML SYRINGE IV PRN ×2 (14:19→22:48)
[2024-12-09] MEDS: ONDANSETRON 4MG 2ML VIAL IV ONE (16:05)
[2024-12-09] MEDS ORDERED: ONDANSETRON 4MG 2ML VIAL As Ordered ONE (16:05)
[2024-12-09] MEDS: METHOCARBAMOL 1,000 MG/10 ML VIAL IV ONE (20:12)
[2024-12-09] MEDS: ACETAMINOPHEN *IV* 1,000 MG in IV 1 EA IV ONE (20:44)
[2024-12-09] MEDS ORDERED: APREMILAST 30 MG TAB (PATIENT'S OWN MED) PO SCH (21:00)
[2024-12-09] MEDS ORDERED: MOM 30 ML SUSPENSION UDC PO PRN (21:15)
[2024-12-09] MEDS ORDERED: NALOXONE INJ 0.4MG/1ML VIAL IV PRN (21:15)
[2024-12-09] MEDS ORDERED: RAMELTEON 8 MG TAB PO PRN (21:15)
[2024-12-09] MEDS ORDERED: MAALOX 30 ML SUSP *UDC PO PRN (21:15)
[2024-12-09] MEDS ORDERED: HYDROMORPHONE HCL 0.5 MG/0.5 ML SYRINGE IV PRN (21:15)
[2024-12-09] MEDS: DICLOFENAC EPOLAMINE 1.3% PATCH TOP SCH (21:22)
[2024-12-09] MEDS: ONDANSETRON 4MG ORAL DISINTEGRATING TAB PO PRN (22:59)
[2024-12-09 23:04] LABS: INR 1.03
[2024-12-09 23:17] VITALS: BP 165/82; TEMP 97.6; O2SAT 96
[2024-12-10] MEDS: KETOROLAC 30 MG/ML 1 ML VIAL IV SCH (00:48)
[2024-12-10] MEDS: METHOCARBAMOL 1,000 MG/10 ML VIAL IV SCH (02:08)
[2024-12-10] MEDS: ACETAMINOPHEN *IV* 1,000 MG in IV 1 EA IV SCH (03:47)
[2024-12-10 04:00] VITALS: BP 153/69; TEMP 98.3; O2SAT 98
[2024-12-10] MEDS ORDERED: ONDANSETRON 4MG 2ML VIAL IV PRN (04:45)
[2024-12-10 06:24] LABS: PLATELET COUNT, AUTOMATED 363 10^3/uL (150-450)
[2024-12-10 06:48] LABS: ALT/SGPT 16 U/L (7.0-40); AST/SGOT 19 U/L (<34); CALCIUM LEVEL 9.0 MG/DL (8.5-10.1); CARBON DIOXIDE LEVEL 22 MMOL/L (20-31); CHLORIDE LEVEL 104 MMOL/L (98-107); CREATININE FOR GFR 0.51 MG/DL (0.55-1.30); GLOMERULAR FILTRATION RATE > 90.0 (>51); MAGNESIUM LEVEL 2.1 MG/DL (1.8-2.4); POTASSIUM SERUM 3.9 MMOL/L (3.5-5.1); SODIUM LEVEL 140 MMOL/L (136-145)
[2024-12-10 08:24] VITALS: BP 139/75; TEMP 98.2
[2024-12-10] MEDS: ENOXAPARIN 40 MG/0.4 ML SYRINGE (J1650 PER 10MG) SC SCH (09:29)
[2024-12-10] MEDS: THYROID 30MG TAB PO SCH (09:29)
[2024-12-10] MEDS: PANTOPRAZOLE 40MG TAB PO SCH (09:29)
[2024-12-10] MEDS: oxyCODONE 10 MG CR TAB PO SCH (09:30)
[2024-12-10 12:25] VITALS: BP 147/70; TEMP 99.5; O2SAT 98
[2024-12-10 16:30] VITALS: BP 144/69; TEMP 99; O2SAT 96
[2024-12-10 19:42] VITALS: BP 163/80; TEMP 99.2; O2SAT 95
[2024-12-10 23:32] VITALS: BP 138/84; TEMP 98.6; O2SAT 96
[2024-12-11 04:00] VITALS: BP 140/82; TEMP 98.8; O2SAT 97
[2024-12-11] MEDS: KETOROLAC 30 MG/ML 1 ML VIAL IV PRN (06:12)
[2024-12-11 08:00] VITALS: BP 144/76; TEMP 98.1; O2SAT 94
[2024-12-11] MEDS: predniSONE 20 MG TAB PO SCH (10:01)
[2024-12-11 12:00] VITALS: BP 178/89; TEMP 98.8; O2SAT 95
[2024-12-11] MEDS ORDERED: METH-1165 PO (12:30)
[2024-12-11] MEDS ORDERED: PRED10TA2 PO (12:30)
[2024-12-11] MEDS ORDERED: PANT40TA29 PO (12:30)
[2024-12-11] MEDS ORDERED: LIDO1ADH93 TOP (12:30)
[2024-12-11] MEDS ORDERED: OXYC-141 PO (12:30)
[2024-12-11] MEDS ORDERED: ACET-1379 PO (12:30)
[2024-12-11] MEDS ORDERED: KETO-204 PO (12:30)
[2024-12-11] MEDS ORDERED: PRED20TA PO (12:30)
[2024-12-11] MEDS: LIDOCAINE 5% PATCH TD STA (13:42)
[2024-12-11] MEDS: oxyCODONE 20MG CR TAB PO STA (13:42)
[2024-12-11 14:00] VITALS: BP 164/88
[2024-12-11] MEDS ORDERED: OXYC20TA40 PO (14:18)
[2024-12-11] MEDS ORDERED: DICL1PAT6 TOP (14:21)
[2024-12-11] MEDS ORDERED: BLOOKIT XX (17:18)
[2024-12-13] MEDS ORDERED: THYROID 30MG TAB PO SCH (09:00)
== END 2024-12-11 15:30 | disposition home or self-care (01) | DRG 347 ==
LOC: M ED 05:16 → M ED INP 21:13 → M MS4PR 23:04
PROVIDERS: ADMIT Family Medicine; ATTEND Student in an Organized Health Care Education/Training Program
DX: M48.02 Spinal stenosis, cervical region (principal); H43.9 Unspecified disorder of vitreous body; M35.00 Sjogren syndrome, unspecified; M62.830 Muscle spasm of back; G89.29 Other chronic pain; M54.12 Radiculopathy, cervical region; M79.7 Fibromyalgia; E03.9 Hypothyroidism, unspecified; L40.9 Psoriasis, unspecified; G43.909 Migraine, unspecified, not intractable, without status migrainosus; K58.9 Irritable bowel syndrome, unspecified; M81.0 Age-related osteoporosis without current pathological fracture; Z79.891 Long term (current) use of opiate analgesic; Z79.899 Other long term (current) drug therapy; Z79.52 Long term (current) use of systemic steroids; Z88.2 Allergy status to sulfonamides; Z88.5 Allergy status to narcotic agent; Z88.8 Allergy status to other drugs, medicaments and biological substances

== ENCOUNTER → 2025-03-09 | Outpatient (CLI) | payer BC ==
[~2025-03-09] MED LIST changes: +ACET-1379 PO; +APRE30TA3 PO; +BLOOKIT XX; +DICL1PAT6 TOP; +KETO-204 PO; +LIDO1ADH93 TOP; +METH-1165 PO; +NP T60TA PO; +OXYC-141 PO; +OXYC20TA40 PO; +PANT40TA29 PO; +PHEN30CA21 PO; +PRED10TA2 PO; +PRED20TA PO; +SUMA6PEN5 INJ; +TIZA10TA PO
== END ==
LOC: M WUC 13:43
PROVIDERS: ATTEND Nurse Practitioner Family
DX: M48.02 Spinal stenosis, cervical region (principal); Z98.890 Other specified postprocedural states

== ENCOUNTER → 2025-06-07 | Outpatient (REF) | payer BC | LOC: M LAB REF 17:10 | PROVIDERS: ATTEND Internal Medicine | DX: M54.2 Cervicalgia (principal); M35.00 Sjogren syndrome, unspecified; M79.7 Fibromyalgia ==